=== PATIENT | female | born 1955 | race Caucasian/White ===

== ENCOUNTER → 2016-10-16 | Outpatient (CLI) | payer BC ==
[~2016-10-16] MED LIST: ACHD5005 PO; ALBU0.8322 IH; ALPR.25T PO; AMLO5TAB2 PO; BISO10TA PO; BISO5TAB8 PO; BUDE3CAP5 PO; CEFU500T63 PO; CIPR-226 PO; CIPR500T78 PO; COLE1TAB PO; CYAN100053 IJ; D50KC PO; DICY10CA12 PO; DOCU100C37 PO; DULO30CA PO; DULO60CA6 PO; ESTR1PAT10 TD; ESTR1PAT31 TD; FEXO180T84 PO; FLUT30CR10 TP; FOLI1TAB24 PO; HUMIRA; HYDR-3720 PO; HYDR-3874 PO; HYDR118S10 PO; HYDR1TAB PO; HYOS0.1217 PO; HYOS0.1217 SL; Hydrocodone Bit/Acetaminophen PO; IBUP-2055 PO; LEVO750T6 PO; LEVO75TA57 PO; LINA145C PO; LVT.05T PO; MELO-198 PO; METH2.5T PO; METR500T PO; MTF500T PO; ONDN4T PO; OXYC10TA7 PO; PANT20TA PO; PANT40TA PO; PNT40TEC PO; POLY119P PO; POLY17PO23 PO; PRD20T PO; RT-ALBUINH IH; SENN-1 PO; SENN1TAB76 PO; SNN187T PO; SUCR1TAB PO; TRAM50TA2 PO; TRAZ-28 PO; TRAZ150T42 PO; TRZ50T PO; bentyl
--- OUTSIDE RECORDS SUMMARY | 2016-10-16 11:56 | XMS REPORT | Continuity of Care Document ---
Author Author [facility] Organization [facility] Address Unknown Phone Unavailable Care Team Providers Care Professional Services Manager Name Role Phone Maureen Saucedo PCP [phone] Source Comments Some departments are not documenting in the electronic medical record. If you do not see the information that you expected, contact Release of Information in the Health Information Management department at [phone] for further assistance in locating additional records.[facility] Active Allergies and Adverse Reactions Allergen Noted Date Severity Reactions Comments Amitriptyline 01/19/2011 JOINT PAIN Axid 01/19/2011 HIVES, EDEMA Biaxin 01/19/2011 ANAPHYLAXIS Erythromycin 01/19/2011 SEE COMMENTS Severe stomach pains and vomiting Macrodantin 01/19/2011 HIVES Nitrofurantoin 01/19/2011 UNKNOWN Penicillins 01/19/2011 ANAPHYLAXIS, HIVES Premarin 01/19/2011 JOINT PAIN, MUSCLE PAIN Prilosec 01/19/2011 DIARRHEA Reglan 01/19/2011 JOINT PAIN Sulfa (Sulfonamide 01/19/2011 ANAPHYLAXIS, HIVES Antibiotics) Terfenadine 01/19/2011 HIVES, ANGIOEDEMA Current Medications Prescription Sig. Disp. Refills Start End Date Status Date cyanocobalamin (VITAMIN Inject 1,000 mcg to Active B-12, RUBRAMIN) 1,000 area(s) as directed every mcg/mL IJ injection 30 days. bisoprolol (ZEBETA) 5 mg Take 10 mg by mouth at Active PO tablet bedtime daily. trazodone (DESYREL) 50 mg Take 50 mg by mouth at Active PO tablet bedtime daily. estradiol(+) Apply 1 Patch to top of Active (VIVELLE-DOT) 0.1 mg/day skin as directed twice TD patch weekly. ergocalciferol (VITAMIN Take 50,000 Units by Active D) 50,000 unit capsule mouth every 7 days. Takes on DULoxetine DR (CYMBALTA) Take 60 mg by mouth Active 60 mg capsule daily. levothyroxine (SYNTHROID) Take 75 mcg by mouth Active 75 mcg tablet daily. Brand name only dicyclomine (BENTYL) 10 Take 10 mg by mouth four Active mg capsule times daily as needed. hyoscyamine (ANASPAZ; Place 125 mcg under Active NULEV; SYMAX FASTABS; tongue every 4 hours as HYOMAX-FT; ED-SPAZ; needed. OSCIMIN) 0.125 mg rapid dissolve tablet fexofenadine(+) (JOE) Take 180 mg by mouth as Active 180 mg tablet Needed. senna/docusate Take 1 Tab by mouth twice 30 Tab 3 10/22/19 Active (SENOKOT-S) 8.6/50 mg daily. 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 Completely asymptomatic. 10/20/2013: Kidney, "left renal mass", partial nephrectomy: Renal oncocytoma 01/2015: lt kidney wnl. Right with small mass 1cm. 01/2016: 1. Prior partial left nephrectomy without recurrent left renal mass. 2. Stable hyperechoic area in or adjacent to the lower pole right kidney which is most compatible with a benign angiomyolipoma or tiny nodular area of perinephric fat. 3. Persistent diffuse hepatic steatosis. L ast Assessment & Plan: Doing well Stable mass RTC 2 years with SUSAN Tracy MD Thoracic or lumbosacral neuritis or radiculitis, unspecified 08/01/2011 Displacement of intervertebral disc, site unspecified, without myelopathy Chronic low back pain 08/01/2011 Spondyloarthropathy (HCC) 08/01/2011 Radiculopathy 08/01/2011 Osteoarthritis 08/01/2011 Encounter for long-term (current) use of medications 08/01/2011 Ankylosing spondylitis (HCC) 01/28/2011 Sicca syndrome, Sjogren's (HCC) 01/28/2011 Encounter for long-term (current) use of other medications 01/28/2011 Social History Tobacco Use Types Packs/Day Years Used Date Never Smoker Smokeless Tobacco: Never Used Alcohol Use Drinks/Week oz/Week Comments No Last Filed Vital Signs Vital Sign Reading Time Taken Blood Pressure 132/63 01/28/2016 9:59 AM CDT Pulse 71 01/28/2016 9:59 AM CDT Temperature 36.7 C (98.1 F) 05/17/2015 1:18 PM CDT Respiratory Rate 16 01/08/2015 9:07 AM CDT Height 1.689 m (5' 6.5") 01/28/2016 9:59 AM CDT Weight 88.27 kg (194 lb 9.6 oz) 01/28/2016 9:59 AM CDT Body Mass Index 30.94 01/28/2016 9:59 AM CDT Oxygen Saturation 96% 05/17/2015 2:25 PM CDT Plan of Care Health Maintenance Due Date Last Done Comments Hepatitis C Screening 1954 Physical (Comprehensive) 1961 Exam Pertussis Vaccine 1965 Tetanus Vaccine 1971 Cervical Cancer Screening 1975 Breast Cancer Screening 1994 Shingles Vaccine 2014 Influenza Vaccine 04/06/2016 Colorectal Cancer 05/17/2025 05/17/2015 Screening Results from Last 3 Months Not on file
--- NOTE | 2016-10-16 12:46 | Diagnostic Imaging Report ---
PA and lateral views of the chest Indication: Dyspnea Findings: The lungs are clear. The heart size is normal. There is no effusion or pneumothorax The mediastinum and josafat appear unremarkable. Surgical clips in the upper abdomen seen. Impression: Unremarkable study. Dictated by: Dictated on workstation # [id number]
== END ==
LOC: RAD 11:52
PROVIDERS: ATTEND Family Medicine
DX: R06.00 Dyspnea, unspecified (principal)
CPT/HCPCS: 71020

== ENCOUNTER → 2016-12-12 | Outpatient (CLI) | payer BC ==
[~2016-12-12] MED LIST changes: +CATHETER FLUSH 10 ML SYR IV PRN; +REGADENOSON 0.4 MG/5 ML SYR (LEXISCAN) IV ONE
[2016-12-12 13:41] VITALS: BP 149/71
[2016-12-12 13:46] VITALS: BP 156/61
[2016-12-12 13:50] VITALS: BP 149/64
--- NOTE | 2016-12-12 21:04 | STRESS TEST ---
DATE OF SERVICE: 12/12/2016 DATE: 12/12/2016. ORDERING PHYSICIAN: Korina Salgado APRN. PRIMARY PHYSICIAN: Dr. Saucedo CLINICAL DIAGNOSIS: Chest discomfort, shortness of breath, hypertension, palpitations. Baseline images were carried out after injection of 10.02 mCi of technetium-99m Tetrofosmin. This was followed by 0.4 mg of regadenoson and 30.1 mCi of technetium-99m Tetrofosmin for stress imaging. The electrocardiogram showed sinus rhythm and the electrocardiogram did not change significantly with the regadenoson infusion. She reported shortness of breath and abdominal cramping following regadenoson infusion, which resolved in a few minutes. Review of images at rest and following stress indicates diminished count uptake in the anterolateral wall, both at rest and following regadenoson infusion. This appears to be a breast artifact. Gated images show normal global left ventricular systolic function with normal regional wall motion, including the inferolateral wall. Left ventricular ejection fraction is calculated to be 66%. Left ventricular end-diastolic volume is 66 mL. TID is absent (1.1). CONCLUSIONS: 1. No distinct evidence of any significant myocardial ischemia or infarction on this study. 2. Normal regional wall motion. 3. Normal global left ventricular systolic function with a calculated ejection fraction of 66%. 4. Normal left ventricular cavity size. Job ID: [id number] DocumentID: [id number] Dictated Date: 12/12/2016 15:36:55 [employer] Material Handler Date: 12/12/2016 16:05:29 Dictated By: KIRK PRAJAPATI MD, MA, FACP, FACC,
== END ==
LOC: CARD 12:27
PROVIDERS: ATTEND Nurse Practitioner Family
DX: I10 Essential (primary) hypertension (principal); R00.2 Palpitations; R06.09 Other forms of dyspnea; R07.89 Other chest pain
CPT/HCPCS: 78452; 93017

== ENCOUNTER → 2016-12-14 | Outpatient (CLI) | payer BC ==
[~2016-12-14] MED LIST changes: -CATHETER FLUSH 10 ML SYR IV PRN; -REGADENOSON 0.4 MG/5 ML SYR (LEXISCAN) IV ONE
== END ==
LOC: CARD 14:35
PROVIDERS: ATTEND Nurse Practitioner Family
DX: I10 Essential (primary) hypertension (principal); R07.89 Other chest pain; R06.09 Other forms of dyspnea; R00.2 Palpitations

== ENCOUNTER → 2018-01-13 | Outpatient (CLI) | payer BC ==
[~2018-01-13] MED LIST changes: +HYDR-3870 PO; -HYDR-3874 PO; +HYOS-6 PO; -HYOS0.1217 PO; -SENN-1 PO; +SENN-145 PO
[2018-01-13 14:17] LABS: BASOPHILS % (AUTO) 0 % (0-10); EOSINOPHILS % (AUTO) 0 % (0-10); HEMATOCRIT 41 % (35-52); HEMOGLOBIN 14.4 G/DL (11.5-16.0); LYMPHOCYTES % (AUTO) 20 % (12-44); MEAN CORPUSCULAR HEMOGLOBIN 32 PG (25-34); MEAN CORPUSCULAR HGB CONC 35 G/DL (32-36); MEAN CORPUSCULAR VOLUME 91 FL (80-99); MEAN PLATELET VOLUME 9.2 FL (7.4-10.4); MONOCYTES # (AUTO) 0.9 X 10^3 (0.0-1.0); MONOCYTES % (AUTO) 10 % (0-12); NEUTROPHILS # (AUTO) 6.8 X 10^3 (1.8-7.8); NEUTROPHILS % (AUTO) 69 % (42-75); PLATELET COUNT 357 10^3/uL (130-400); RED BLOOD COUNT 4.47 10^6/uL (4.35-5.85); RED CELL DISTRIBUTION WIDTH 13.6 % (10.0-14.5); WHITE BLOOD COUNT 9.8 10^3/uL (4.3-11.0)
[2018-01-13 14:41] LABS: ALANINE AMINOTRANSFERASE 23 U/L (0-55); ALBUMIN 4.4 GM/DL (3.2-4.5); ALKALINE PHOSPHATASE 74 U/L (40-136); BILIRUBIN,TOTAL 0.3 MG/DL (0.1-1.0); BUN/CREATININE RATIO 15; CALCIUM 9.5 MG/DL (8.5-10.1); CARBON DIOXIDE 21 MMOL/L (21-32); CHLORIDE 103 MMOL/L (98-107); CREATININE SERUM 0.84 MG/DL (0.60-1.30); GFR ESTIMATED > 60; GLUCOSE 110 MG/DL (70-105); POTASSIUM 4.8 MMOL/L (3.6-5.0); SODIUM 136 MMOL/L (135-145); TOTAL PROTEIN 8.4 GM/DL (6.4-8.2)
== END ==
LOC: LAB 14:01
PROVIDERS: ATTEND Nurse Practitioner Family
DX: N10 Acute pyelonephritis (principal); R11.0 Nausea
CPT/HCPCS: 36415; 80053; 85025; 86141

== ENCOUNTER 2018-01-29 14:15 | Inpatient (IN) | payer BC ==
[~2018-01-29] VITALS: Ht 167.6 cm; Wt 81.6 kg
[~2018-01-29 14:15] MED LIST changes: +TRAZ-189 PO; -TRAZ-28 PO
[2018-01-29] MEDS ORDERED: ONDANSETRON 4 MG/2 ML (SDV) Z0FRAN IVP PRN (14:30)
[2018-01-29] MEDS ORDERED: fentaNYL INJECTION 100 MCG/2 ML AMP IVP PRN (14:30)
[2018-01-29] MEDS ORDERED: CATHETER FLUSH 10 ML SYR IV PRN (15:15)
[2018-01-29] MEDS ORDERED: AZIT250T12 PO (15:18)
[2018-01-29] MEDS ORDERED: PANT40TA3 PO (15:18)
[2018-01-29] MEDS ORDERED: DULO60CA58 PO (15:18)
[2018-01-29] MEDS ORDERED: GABA-488 PO (15:18)
[2018-01-29] MEDS ORDERED: MESA250C PO (15:18)
[2018-01-29] MEDS ORDERED: SITA100T12 PO (15:18)
[2018-01-29] MEDS ORDERED: AMLO5TAB2 PO (15:31)
[2018-01-29] MEDS ORDERED: LEVO75TA PO (15:31)
[2018-01-29] MEDS ORDERED: CNC1KV IM (15:31)
[2018-01-29] MEDS ORDERED: HYOS-19 PO (15:31)
[2018-01-29] MEDS ORDERED: LIOT5TAB3 PO (15:31)
[2018-01-29] MEDS ORDERED: ALBU2.5V4 NEB (15:31)
[2018-01-29] MEDS ORDERED: ERGO50006 PO (15:31)
[2018-01-29] MEDS ORDERED: ALBU18HF2 INH (15:31)
[2018-01-29] MEDS ORDERED: CHOL20003 PO (15:31)
[2018-01-29] MEDS ORDERED: BISO10TA PO (15:31)
[2018-01-29] MEDS: CEFEPIME INJECTION 2,000 MG in NS (IVPB) 50 ML IV SCH (15:33)
[2018-01-29] MEDS: ENOXAPARIN 40 MG/0.4 ML (LOVENOX) SYR SC SCH (15:38)
[2018-01-29] MEDS: inSUlin ASPART (NovoLOG) 1 UNIT/0.01 ML (CHARGE PER UNIT) SC SCH ×2 (15:46→21:37)
[2018-01-29 15:48] VITALS: BP 135/62
[2018-01-29] MEDS: AZITHROMYCIN INJECTION 500 MG in NS (IVPB) 250 ML IV SCH (16:11)
[2018-01-29 16:31] LABS: BASOPHILS % (AUTO) 0 % (0-10); EOSINOPHILS % (AUTO) 0 % (0-10); HEMATOCRIT 37 % (35-52); HEMOGLOBIN 12.9 G/DL (11.5-16.0); LYMPHOCYTES # (AUTO) 2.2 X 10^3 (1.0-4.0); LYMPHOCYTES % (AUTO) 23 % (12-44); MEAN CORPUSCULAR HEMOGLOBIN 32 PG (25-34); MEAN CORPUSCULAR HGB CONC 35 G/DL (32-36); MEAN CORPUSCULAR VOLUME 91 FL (80-99); MONOCYTES # (AUTO) 0.8 X 10^3 (0.0-1.0); MONOCYTES % (AUTO) 8 % (0-12); NEUTROPHILS # (AUTO) 6.4 X 10^3 (1.8-7.8); NEUTROPHILS % (AUTO) 68 % (42-75); PLATELET COUNT 435 10^3/uL (130-400); RED BLOOD COUNT 4.05 10^6/uL (4.35-5.85); RED CELL DISTRIBUTION WIDTH 13.3 % (10.0-14.5); WHITE BLOOD COUNT 9.5 10^3/uL (4.3-11.0)
[2018-01-29 16:46] LABS: BUN/CREATININE RATIO 14; CALCIUM 9.4 MG/DL (8.5-10.1); CARBON DIOXIDE 22 MMOL/L (21-32); CHLORIDE 102 MMOL/L (98-107); CREATININE SERUM 0.84 MG/DL (0.60-1.30); GFR ESTIMATED > 60; GLUCOSE 134 MG/DL (70-105); POTASSIUM 4.4 MMOL/L (3.6-5.0); SODIUM 135 MMOL/L (135-145)
[2018-01-29] MEDS ORDERED: KETOROLAC 30 MG/ML VIAL IVP PRN (17:15)
[2018-01-29] MEDS ORDERED: PANTOPRAZOLE 40 MG/10 ML (PROTONIX) VIAL IV NR (17:15)
[2018-01-29] MEDS ORDERED: KETOROLAC 30 MG/ML VIAL IVP NR (17:15)
[2018-01-29 17:59] VITALS: BP 135/62
[2018-01-29] MEDS: RT-ALBUTEROL/IPRATROPIUM 3 ML (DUONEB) VIAL INH SCH ×2 (18:13→21:42)
[2018-01-29] MEDS ORDERED: HYOSCYAMINE 0.125 MG (LEVSIN) TAB PO PRN (18:15)
[2018-01-29] MEDS ORDERED: SENNA W/DOCUSATE (SENOKOT S) TABLET PO PRN (18:15)
[2018-01-29] MEDS: oxyCODONE/APAP 10/325MG (PERCOCET 10) TABLET PO PRN (18:59)
--- NOTE | 2018-01-29 19:51 | History & Physicial ---
History of Present Illness History of Present Illness Reason for visit/HPI This is a 62 year old female who had presented to my office the day prior to admission with complaint of severe right upper quadrant and right flank pain. She had been having intermittent pain off and on for the past few weeks. She also complained of coughing spasms which exacerbated her pain and was having chills. She was sent for a CT scan of her abdomen and pelvis and was found to have a right sided pneumonia. She was given Rocephin IM and started on Zithromax but she presented back to my office today with no improvement in her symptoms so it was decided to admit her for IV antibiotics. Date of Admission Jan 29, 2018 at 2:30 pm Date Seen by Provider: Jan 29, 2018 Time Seen by Provider: 19:44 I consulted on this patient on 01/29/18 19:44 Attending Physician Maureen Saucedo DO Admitting Physician Maureen Saucedo DO Consult Allergies and Home Medications Allergies Coded Allergies: Penicillins (Verified Allergy, Unknown, 11/08/13) clarithromycin (Verified Allergy, Unknown, 11/08/13) gluten (Verified Allergy, Unknown, 11/10/13) metoclopramide (Unverified Allergy, Unknown, 11/03/15) piroxicam (Verified Allergy, Unknown, Pt has received Ketorolac w/o issue , 01/29/18) sulfacetamide sodium (Verified Allergy, Unknown, 11/08/13) Home Medications Albuterol Sulfate 18 Gm Hfa.aer.ad, 2 PUFF INH Q4H PRN for SHORTNESS OF BREATH, (Reported) Albuterol Sulfate 2.5 Mg/3 Ml Vial.neb, 2.5 MG NEB Q4H PRN for SHORTNESS OF BREATH, (Reported) Amlodipine Besylate 5 Mg Tablet, 5 MG PO BID, (Reported) Azithromycin 250 Mg Tablet, PO UD, (Reported) 5 DAY SUPPLY FILLED 01-28-18 Bisoprolol Fumarate 10 Mg Tablet, 10 MG PO BID, (Reported) Cholecalciferol (Vitamin D3) 2,000 Unit Capsule, 2,000 UNIT PO DAILY, (Reported) Cyanocobalamin 1,000 Mcg/Ml Inj, 1,000 MCG IM EVERY 2 WEEKS, (Reported) Docusate Sodium 100 Mg Capsule, 200 MG PO BID, (Reported) Duloxetine HCl 60 Mg Capsule.dr, 60 MG PO HS, (Reported) Ergocalciferol (Vitamin D2) 50,000 Unit Capsule, 50,000 UNITS PO Sa, (Reported) Estradiol 1 Each Patch.tdsw, 1 PATCH TD EVERY 3 DAYS, (Reported) Fexofenadine HCl 180 Mg Tablet, 180 MG PO DAILY PRN for ALLERGIES, (Reported) Gabapentin 300 Mg Capsule, 300 MG PO HS, (Reported) Hyoscyamine Sulfate 0.125 Mg Tab.subl, 0.125 MG PO Q6H PRN for SPASMS, (Reported ) Levothyroxine Sodium 75 Mcg Tablet, 75 MCG PO DAILY, (Reported) Liothyronine Sodium 5 Mcg Tablet, 5 MCG PO DAILY, (Reported) Mesalamine 250 Mg Capsule.er, 250 MG PO DAILY, (Reported) Pantoprazole Sodium 40 Mg Tablet.dr, 40 MG PO BID, (Reported) Sennosides/Docusate Sodium 1 Each Tablet, 2 TAB PO BID PRN for CONSTIPATION-5TH LINE, (Reported) Sitagliptin Phosphate 100 Mg Tablet, 100 MG PO DAILY, (Reported) Patient Home Medication List Home Medication List Reviewed: Yes Past Uqohbhm-Tegbac-Ycnkay Hx Patient Social History Alcohol Use: Denies Use Number of Drinks Today: 0 Recreational Drug Use: No Physical Abuse Screen: No Sexual Abuse: No Recent Foreign Travel: No Contact w/other who traveled: No Recent Hopitalizations: No Recent Infectious Disease Expo: No Immunizations Up To Date Tetanus Booster (TDap): Less than 5yrs Pediatric: Yes Date of Pneumonia Vaccine: Apr 11, 2012 Date of Influenza Vaccine: Jun 15, 2016 Seasonal Allergies Seasonal Allergies: No Surgeries Yes Appendectomy, Breast, Cardiac, Gallbladder, Hysterectomy, Oophorectomy, Orthopedic, Thyroidectomy, Tonsillectomy Respiratory Yes Currently Using CPAP: No Currently Using BIPAP: No Cardiovascular Yes (mitral valve prolapse, heart caths no stents) Coronary Artery Disease, Heart Attack, Valvular Heart Disease Neurological Yes Reproductive System Hx Reproductive Disorders: Yes (TOTAL HYSTERECTOMY) Sexually Transmitted Disease: No HIV/AIDS: No Female Reproductive Disorders: Menstrual Problems, Endometriosis, Ovarian Cyst 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 History: Hysterectomy Genitourinary Kidney Infection, Kidney Stones, UTI-Chronic Gastrointestinal Yes (CHRONIC ABDOMINAL PAIN ) Gastroesophageal Reflux, Crohns Disease, Diverticulosis, Polyps, Hiatal Hernia, Ulcer, Gall Bladder Disease, Irritable Bowel Musculoskeletal Yes (ANKLYLOSING SPONDYLITIS) Degenerate Disk Disease, Arthritis, Chronic Back Pain Endocrine History of Endocrine Disorders: Yes Endocrine Disorders: Hypothyroidsim, Lupus HEENT Loss of Vision: Denies Hearing Impairment: Denies Cancer No Psychosocial History of Psychiatric Problem: No Integumentary History of Skin or Integumenta: Yes (STAPH INFECTIONS) Blood Transfusions History of Blood Disorders: No Adverse Reaction to a Blood Tr: No Family Medical History Family Hx: Family history: Cardiovascular disease Family history: Diabetes mellitus 03 MOTHER 09 BROTHER Family history: Glaucoma 03 MOTHER Family history: Thyroid disorder 03 MOTHER Heart disease 03 FATHER (AORTIC VALVE REPLACED) Constitutional: chills, weakness EENTM: No see HPI, No no symptoms reported, No ear discharge, No hearing loss, No ear pain, No blurred vision, No double vision, No eye pain, No tearing, No vision loss, No dental problems, No hoarseness, No mouth pain, No mouth swelling , No epistaxis, No nose congestion, No nose pain, No throat pain, No throat swelling, No other Respiratory: cough Cardiovascular: No no symptoms reported, No see HPI, No chest pain, No edema, No Hx of Intervention, No palpitations, No syncope, No vascular heart diseas, No other Gastrointestinal: RUQ Genitourinary: pain (right flank) Musculoskeletal: back pain Skin: No no symptoms reported, No see HPI, No change in color, No change in hair/nails, No dryness, No hx of skin cancer, No lesions, No lumps, No pruritus , No rash, No other Psychiatric/Neurological: Weakness Physical Exam Vital Signs Vital Signs - First Documented 01/29/18 01/29/18 15:48 17:59 Temp 97.2 Pulse 70 Resp 20 B/P (MAP) 135/62 (86) Pulse Ox 94 O2 Delivery Room Air FiO2 21 Capillary Refill : General Appearance: Moderate Distress HEENT: Normal ENT Inspection Neck: Supple Respiratory: Crackles (right), Decreased Breath Sounds Cardiovascular: Regular Rate, Rhythm, Systolic Murmur, Gallop/S4 Gastrointestinal: Normal Bowel Sounds, Soft, Tenderness (RUQ) Rectal: Deferred Back: CVA Tenderness (R) Extremity: Non Tender, No Calf Tenderness, No Pedal Edema Neurologic/Psychiatric: Alert, Oriented x3 Skin: Warm/Dry Lymphatic: No Adenopathy Comments Laboratory Tests 01/29/18 15:40: Glucometer 152H 01/29/18 16:07: White Blood Count 9.5, Red Blood Count 4.05L, Hemoglobin 12.9, Hematocrit 37, Mean Corpuscular Volume 91, Mean Corpuscular Hemoglobin 32, Mean Corpuscular Hemoglobin Concent 35, Red Cell Distribution Width 13.3, Platelet Count 435H, Mean Platelet Volume 9.0, Neutrophils (%) (Auto) 68, Lymphocytes (%) (Auto) 23, Monocytes (%) (Auto) 8, Eosinophils (%) (Auto) 0, Basophils (%) (Auto) 0, Neutrophils # (Auto) 6.4, Lymphocytes # (Auto) 2.2, Monocytes # (Auto) 0.8, Eosinophils # (Auto) 0.0, Basophils # (Auto) 0.0, Sodium Level 135, Potassium Level 4.4, Chloride Level 102, Carbon Dioxide Level 22, Anion Gap 11, Blood Urea Nitrogen 12, Creatinine 0.84, Estimat Glomerular Filtration Rate > 60, BUN/ Creatinine Ratio 14, Glucose Level 134H, Calcium Level 9.4 Assessment/Plan Assessment and Plan 1. Acute Community Acquired Pneumonia with Failed outpatient treatment--admit for IV antibiotics--maxipime and zithromax 2. RUQ pain--chronic with recent exacerbation by above 3. Hypertension--resume home meds 4. Diabetes mellitus II--start accuchecks with SSI Admission Diagnosis Admission Status: Inpatient Order (span 2 midnights) Reason for Inpatient Admission: Will need IV antibiotics for at least 2 midnights due to failed outpatient treatment for pneumonia MAUREEN SAUCEDO DO Jan 29, 2018 7:51 pm
[2018-01-29] MEDS: DOCUSATE SODIUM 100 MG (COLACE) CAP PO SCH (20:22)
[2018-01-29 20:45] VITALS: BP 126/58
[2018-01-29] MEDS ORDERED: NON-FORMULARY MEDICATION 1 EA EA (Bisoprolol Fumarate 10 MG) PO SCH (21:00)
[2018-01-29] MEDS: amLODIPine 5 MG (NORVASC) TAB PO SCH (21:37)
[2018-01-29] MEDS: DULoxetine 30 MG (CYMBALTA) CAP PO SCH (21:37)
[2018-01-29] MEDS: GABAPENTIN 300 MG (NEURONTIN) CAP PO SCH (21:37)
[2018-01-29] MEDS: CATHETER FLUSH 10 ML SYR IV SCH (22:01)
[2018-01-30] VITALS (7 sets, daily range): BP systolic 106–132; BP diastolic 58–69
[2018-01-30] MEDS: RT-ALBUTEROL/IPRATROPIUM 3 ML (DUONEB) VIAL INH SCH ×6 (01:47→22:20)
[2018-01-30] MEDS: CYCLOBENZAPRINE 10 MG (FLEXERIL) TAB PO SCH ×4 (02:03→21:44)
[2018-01-30] MEDS: oxyCODONE/APAP 10/325MG (PERCOCET 10) TABLET PO PRN ×3 (02:03→15:29)
[2018-01-30] MEDS: LIDOCAINE (LIDODERM) 5% PATCH TOP SCH ×2 (02:04→08:11)
[2018-01-30] MEDS: CEFEPIME INJECTION 2,000 MG in NS (IVPB) 50 ML IV SCH ×2 (04:13→14:55)
[2018-01-30 05:45] LABS: HEMOGLOBIN 11.8 G/DL (11.5-16.0); MEAN PLATELET VOLUME 8.9 FL (7.4-10.4); RED BLOOD COUNT 3.75 10^6/uL (4.35-5.85); RED CELL DISTRIBUTION WIDTH 13.4 % (10.0-14.5); WHITE BLOOD COUNT 8.5 10^3/uL (4.3-11.0)
[2018-01-30 06:14] LABS: ALANINE AMINOTRANSFERASE 13 U/L (0-55); ALBUMIN 3.6 GM/DL (3.2-4.5); ALKALINE PHOSPHATASE 61 U/L (40-136); BILIRUBIN,TOTAL 0.3 MG/DL (0.1-1.0); BUN/CREATININE RATIO 13; CALCIUM 8.8 MG/DL (8.5-10.1); CARBON DIOXIDE 22 MMOL/L (21-32); CHLORIDE 102 MMOL/L (98-107); CREATININE SERUM 0.84 MG/DL (0.60-1.30); GFR ESTIMATED > 60; GLUCOSE 135 MG/DL (70-105); POTASSIUM 4.1 MMOL/L (3.6-5.0); SODIUM 136 MMOL/L (135-145); TOTAL PROTEIN 6.8 GM/DL (6.4-8.2)
[2018-01-30] MEDS: CATHETER FLUSH 10 ML SYR IV SCH ×3 (06:59→21:44)
[2018-01-30] MEDS: inSUlin ASPART (NovoLOG) 1 UNIT/0.01 ML (CHARGE PER UNIT) SC SCH ×4 (07:00→21:43)
[2018-01-30] MEDS: LEVOTHYROXINE 75 MCG (LEVOTHROID) TABLET PO SCH (07:00)
[2018-01-30] MEDS: PANTOPRAZOLE 40 MG (PROTONIX) TAB PO SCH ×2 (08:09→21:43)
[2018-01-30] MEDS: MESALAMINE 250 MG (PENTASA) CAP PO SCH (08:10)
[2018-01-30] MEDS: amLODIPine 5 MG (NORVASC) TAB PO SCH ×2 (08:10→21:43)
[2018-01-30] MEDS: DOCUSATE SODIUM 100 MG (COLACE) CAP PO SCH ×2 (08:13→21:44)
[2018-01-30] MEDS: LINAGLIPTIN (TRADJENTA) 5 MG TABLET PO SCH (08:15)
[2018-01-30] MEDS ORDERED: LORATADINE (CLARITIN) 10 MG TAB PO PRN (09:00)
[2018-01-30] MEDS ORDERED: PANTOPRAZOLE 40 MG/10 ML (PROTONIX) VIAL IV SCH (09:00)
[2018-01-30] MEDS ORDERED: PATIENT MAY USE OWN MEDS, ALL MC SCH (11:15)
[2018-01-30] MEDS: Liothyronine Sodium 5 MCG PO SCH (11:21)
[2018-01-30] MEDS: AZITHROMYCIN INJECTION 500 MG in NS (IVPB) 250 ML IV SCH (13:51)
[2018-01-30] MEDS: ENOXAPARIN 40 MG/0.4 ML (LOVENOX) SYR SC SCH (13:53)
[2018-01-30] MEDS: DULoxetine 30 MG (CYMBALTA) CAP PO SCH (21:44)
[2018-01-30] MEDS: GABAPENTIN 300 MG (NEURONTIN) CAP PO SCH (21:51)
[2018-01-31] VITALS: BP 104/63
[2018-01-31] MEDS: RT-ALBUTEROL/IPRATROPIUM 3 ML (DUONEB) VIAL INH SCH ×6 (02:20→23:10)
[2018-01-31] MEDS: CEFEPIME INJECTION 2,000 MG in NS (IVPB) 50 ML IV SCH ×2 (02:52→16:39)
[2018-01-31 04:00] VITALS: BP 123/67
[2018-01-31] MEDS: inSUlin ASPART (NovoLOG) 1 UNIT/0.01 ML (CHARGE PER UNIT) SC SCH ×4 (05:26→21:26)
[2018-01-31] MEDS: Liothyronine Sodium 5 MCG PO SCH (05:54)
[2018-01-31] MEDS: LEVOTHYROXINE 75 MCG (LEVOTHROID) TABLET PO SCH (05:54)
[2018-01-31] MEDS: CATHETER FLUSH 10 ML SYR IV SCH ×3 (05:55→21:24)
[2018-01-31] MEDS: CYCLOBENZAPRINE 10 MG (FLEXERIL) TAB PO SCH ×3 (08:10→21:23)
[2018-01-31] MEDS: PANTOPRAZOLE 40 MG (PROTONIX) TAB PO SCH ×2 (08:10→21:23)
[2018-01-31] MEDS: DOCUSATE SODIUM 100 MG (COLACE) CAP PO SCH ×2 (08:10→21:23)
[2018-01-31] MEDS: amLODIPine 5 MG (NORVASC) TAB PO SCH ×2 (08:11→21:23)
[2018-01-31] MEDS: MESALAMINE 250 MG (PENTASA) CAP PO SCH (08:11)
[2018-01-31] MEDS: LINAGLIPTIN (TRADJENTA) 5 MG TABLET PO SCH (08:11)
[2018-01-31] MEDS: LIDOCAINE (LIDODERM) 5% PATCH TOP SCH (08:13)
[2018-01-31 08:38] VITALS: BP 129/60
[2018-01-31] MEDS ORDERED: ESTRADIOL PATCH REMOVAL TP SCH (08:59)
[2018-01-31] MEDS ORDERED: ESTRADIOL 0.1 MG PATCH (CLIMARA) TD SCH (09:00)
[2018-01-31 12:00] VITALS: BP 140/63
[2018-01-31] MEDS ORDERED: BISACODYL 10 MG SUPP (DULCOLAX) PR PRN (12:45)
[2018-01-31] MEDS ORDERED: BISACODYL 10 MG SUPP (DULCOLAX) PR NR (12:45)
--- NOTE | 2018-01-31 12:46 | Progress Note (SOAP) ---
Subjective Date Seen by Provider: Jan 30, 2018 Time Seen by Provider: 12:45 Subjective/Events-last exam Fwup pneumonia, RUQ and right flank pain, HTN, DMII. Feels like can take deeper breaths. Objective Exam Vital Signs Date Time Temp Pulse Resp B/P (MAP) Pulse Ox O2 Delivery O2 Flow Rate FiO2 01/31/18 10:31 90 Room Air 01/31/18 08:38 98.4 107 20 129/60 (83) 92 Room Air 01/31/18 08:15 Room Air 01/31/18 06:57 95 Room Air 01/31/18 04:00 97.7 91 16 123/67 (85) 94 Room Air 01/31/18 02:20 90 Room Air 01/31/18 00:00 98.0 79 16 104/63 (77) 96 Room Air 01/30/18 22:21 90 Room Air 01/30/18 21:40 82 126/68 (87) 01/30/18 20:00 Room Air 01/30/18 19:30 98.6 86 18 124/69 (87) 94 Room Air 01/30/18 18:56 88 Room Air 01/30/18 16:05 99.0 76 18 124/58 (80) 96 Room Air 01/30/18 14:54 92 Room Air I & O 01/31/18 07:00 Intake Total 9000 ml Output Total 4000 ml Balance 5000 ml Capillary Refill : General Appearance: No Apparent Distress Neck: Supple Respiratory: Lungs Clear (with better aeration) Cardiovascular: Regular Rate, Rhythm Gastrointestinal: normal bowel sounds, soft, tenderness (RUQ and right flank) Extremity: Non Tender, No Calf Tenderness, No Pedal Edema Neurologic/Psychiatric: Alert, Oriented x3 Results Lab Laboratory Tests 01/30/18 15:40: Glucometer 196H 01/30/18 21:16: Glucometer 229H 01/31/18 05:25: Glucometer 132H 01/31/18 10:46: Glucometer 162H Microbiology 01/29/18 Blood Culture - Preliminary, Resulted No growth Assessment/Plan Assessment/Plan Assess & Plan/Chief Complaint 1. Right Sided Community Acquired Pneumonia with failed outpatient treatment-- continue IV maxipime and zithromax 2. Hypertension--back on home meds 3. DMII--on home meds and SSI 4. Increase activity--up to chair and ambulate Clinical Quality Measures Admission Status Admission Dx 1. Acute Community Acquired Pneumonia with Failed outpatient treatment--admit for IV antibiotics--maxipime and zithromax 2. RUQ pain--chronic with recent exacerbation by above 3. Hypertension--resume home meds 4. Diabetes mellitus II--start accuchecks with SSI DVT/VTE Risk/Contraindication: Risk Factor Score Per Nursin RFS Level Per Nursing on Admit: 4+=Very High REID ANN DO Jan 31, 2018 12:46
--- NOTE | 2018-01-31 12:50 | Progress Note (SOAP) ---
Subjective Date Seen by Provider: Jan 31, 2018 Time Seen by Provider: 12:47 Subjective/Events-last exam Fwup CAP, HTN, DMII, RUQ/flank pain. Had urinary retention this morning and had to be straight cathed. Has not had BM since hospital stay either. Objective Exam Vital Signs Date Time Temp Pulse Resp B/P (MAP) Pulse Ox O2 Delivery O2 Flow Rate FiO2 01/31/18 10:31 90 Room Air 01/31/18 08:38 98.4 107 20 129/60 (83) 92 Room Air 01/31/18 08:15 Room Air 01/31/18 06:57 95 Room Air 01/31/18 04:00 97.7 91 16 123/67 (85) 94 Room Air 01/31/18 02:20 90 Room Air 01/31/18 00:00 98.0 79 16 104/63 (77) 96 Room Air 01/30/18 22:21 90 Room Air 01/30/18 21:40 82 126/68 (87) 01/30/18 20:00 Room Air 01/30/18 19:30 98.6 86 18 124/69 (87) 94 Room Air 01/30/18 18:56 88 Room Air 01/30/18 16:05 99.0 76 18 124/58 (80) 96 Room Air 01/30/18 14:54 92 Room Air I & O 01/31/18 07:00 Intake Total 9000 ml Output Total 4000 ml Balance 5000 ml Capillary Refill : General Appearance: No Apparent Distress Neck: Supple Respiratory: Decreased Breath Sounds (right base with crackles) Cardiovascular: Regular Rate, Rhythm Gastrointestinal: normal bowel sounds, non tender, soft Extremity: Non Tender, No Calf Tenderness, No Pedal Edema Neurologic/Psychiatric: Alert, Oriented x3 Results Lab Laboratory Tests 01/30/18 15:40: Glucometer 196H 01/30/18 21:16: Glucometer 229H 01/31/18 05:25: Glucometer 132H 01/31/18 10:46: Glucometer 162H Microbiology 01/29/18 Blood Culture - Preliminary, Resulted No growth Assessment/Plan Assessment/Plan Assess & Plan/Chief Complaint 1. Right Sided Community Acquired Pneumonia with failed outpatient treatment-- continue IV maxipime and zithromax, CXR in AM 2. Hypertension--back on home meds 3. DMII--on home meds and SSI 4. Constipation--suppository now as may be worsening urinary retention 5. Urinary Retention--Increase activity and ambulate and straight cath prn, will add bethanecol if continues Clinical Quality Measures Admission Status Admission Dx 1. Acute Community Acquired Pneumonia with Failed outpatient treatment--admit for IV antibiotics--maxipime and zithromax 2. RUQ pain--chronic with recent exacerbation by above 3. Hypertension--resume home meds 4. Diabetes mellitus II--start accuchecks with SSI DVT/VTE Risk/Contraindication: Risk Factor Score Per Nursin RFS Level Per Nursing on Admit: 4+=Very High REID ANN DO Jan 31, 2018 12:50
[2018-01-31] MEDS: AZITHROMYCIN INJECTION 500 MG in NS (IVPB) 250 ML IV SCH (14:09)
[2018-01-31] MEDS: ENOXAPARIN 40 MG/0.4 ML (LOVENOX) SYR SC SCH (14:09)
[2018-01-31 16:00] VITALS: BP 121/57
[2018-01-31] MEDS ORDERED: RT-ALBUTEROL/IPRATROPIUM 3 ML (DUONEB) VIAL INH PRN (20:00)
[2018-01-31] MEDS: DULoxetine 30 MG (CYMBALTA) CAP PO SCH (21:22)
[2018-01-31] MEDS: GABAPENTIN 300 MG (NEURONTIN) CAP PO SCH (21:23)
[2018-02-01 00:10] VITALS: BP 110/60
[2018-02-01] MEDS: RT-ALBUTEROL/IPRATROPIUM 3 ML (DUONEB) VIAL INH SCH ×2 (02:25→06:06)
[2018-02-01] MEDS: CEFEPIME INJECTION 2,000 MG in NS (IVPB) 50 ML IV SCH (03:51)
[2018-02-01] MEDS: LEVOTHYROXINE 75 MCG (LEVOTHROID) TABLET PO SCH (05:56)
[2018-02-01] MEDS: inSUlin ASPART (NovoLOG) 1 UNIT/0.01 ML (CHARGE PER UNIT) SC SCH ×2 (05:57→11:37)
[2018-02-01] MEDS: Liothyronine Sodium 5 MCG PO SCH (05:57)
[2018-02-01] MEDS: CATHETER FLUSH 10 ML SYR IV SCH (05:58)
[2018-02-01 08:00] VITALS: BP 143/83
--- NOTE | 2018-02-01 08:27 | Diagnostic Imaging Report ---
INDICATION: Pneumonia. Exam compared 10/16/2016. FINDINGS: Airspace disease has developed in the right lower lobe and at least partially involving the right middle lobe consistent with pneumonia, however owing to the parenchyma density at the site of infiltrate followup to confirm resolution appropriate. The left lung is clear. There is no evidence for pleural fluid. IMPRESSION: Infiltrate right lower lobe and partially involving the middle lobe most compatible with pneumonia but warranting radiographic followup to document clearance. Dictated by: Dictated on workstation # [id number]
[2018-02-01] MEDS: amLODIPine 5 MG (NORVASC) TAB PO SCH (08:39)
[2018-02-01] MEDS: MESALAMINE 250 MG (PENTASA) CAP PO SCH (08:39)
[2018-02-01] MEDS: PANTOPRAZOLE 40 MG (PROTONIX) TAB PO SCH (08:39)
[2018-02-01] MEDS: CYCLOBENZAPRINE 10 MG (FLEXERIL) TAB PO SCH (08:39)
[2018-02-01] MEDS: DOCUSATE SODIUM 100 MG (COLACE) CAP PO SCH (08:39)
[2018-02-01] MEDS: LIDOCAINE (LIDODERM) 5% PATCH TOP SCH (08:44)
[2018-02-01] MEDS: LINAGLIPTIN (TRADJENTA) 5 MG TABLET PO SCH (08:44)
[2018-02-01] MEDS ORDERED: AZITHROMYCIN 250 MG TAB (ZITHROMAX) PO SCH (09:00)
[2018-02-01] MEDS ORDERED: RT-ALBUTEROL/IPRATROPIUM 3 ML (DUONEB) VIAL INH SCH (11:00)
[2018-02-01] MEDS ORDERED: CEFD300C3 PO (11:09)
--- NOTE | 2018-02-01 11:11 | Discharge Inst-Simple/Standard ---
Discharge Inst-Standard Discharge Medications New, Converted or Re-Newed RX: Transmitted to Pharmacy Patient Instructions/Follow Up Plan of Care/Instructions/FU: Fwup with me Sunday or Sunday Activity as Tolerated: Yes Discharge Diet: ADA Diet, Cardiac Diet REID ANN DO Feb 01, 2018 11:11 am
--- NOTE | 2018-02-05 17:08 | Physician Query-Final Dx ---
JOSR MOORE 02/05/18 1708: Final Diagnosis Give Final Diagnosis Please give Final Diagnosis REID ANN DO 02/12/18 1750: Final Diagnosis Give Final Diagnosis See Discharge Summary JOSR MOORE Feb 05, 2018 17:08 REID ANN DO Feb 12, 2018 17:50
--- NOTE | 2018-02-12 17:59 | Discharge Summary ---
Diagnosis/Chief Complaint Date of Admission Jan 29, 2018 at 14:30 Date of Discharge Feb 01, 2018 at 11:55 Discharge Date: Feb 01, 2018 Discharge Diagnosis 1. Right Sided Community Acquired Pneumonia with failed outpatient treatment-- improved 2. Hypertension--stable 3. DMII--elevated BS during hospital stay due to infection 4. Constipation--improved 5. Urinary Retention--resolved 6. RUQ pain--improved 7. Right flank pain--improved Reason Hospital Visit This is a 62 year old female who had presented to my office the day prior to admission with complaint of severe right upper quadrant and right flank pain. She had been having intermittent pain off and on for the past few weeks. She also complained of coughing spasms which exacerbated her pain and was having chills. She was sent for a CT scan of her abdomen and pelvis and was found to have a right sided pneumonia. She was given Rocephin IM and started on Zithromax but she presented back to my office today with no improvement in her symptoms so it was decided to admit her for IV antibiotics. Discharge Summary Hospital Course Hospital Course This is a 62 year old female who had presented to my office the day prior to admission with complaint of severe right upper quadrant and right flank pain. She had been having intermittent pain off and on for the past few weeks. She also complained of coughing spasms which exacerbated her pain and was having chills. She was sent for a CT scan of her abdomen and pelvis and was found to have a right sided pneumonia. She was given Rocephin IM and started on Zithromax but she presented back to my office on the day of admisison with no improvement in her symptoms so it was decided to admit her for IV antibiotics. She was given zithromax and cefepime IV for the pneumonia. She was started on SVNS with duoneb as well as incentive spirometry. She was initially given IV fentanyl and IV toradol for pain. This was then changed to oral oxycodone. She continued to complain of right upper quadrant and right flank pain until she was at least 48hrs on IV antibiotics then her pain started to improve. She was afebrile and her WBC count was normal. By the 3rd hospital day, her lung aeration was improved and her right sided pain was much improved. However, she was having constipation with urinary retention. She did have to be straight cathed and did receive a dulcolax suppository and once her bowels moved, her urinary retention resolved. A repeat CXR showed improvement in her right sided infiltrate and it was decided she could be discharged home on oral antibiotics. Procedures None. Discharge Physical Examination Allergies: Coded Allergies: Penicillins (Verified Allergy, Unknown, 11/08/13) clarithromycin (Verified Allergy, Unknown, 01/30/18) Patient as tolerated azithromycin gluten (Verified Allergy, Unknown, 11/10/13) metoclopramide (Unverified Allergy, Unknown, 11/03/15) piroxicam (Verified Allergy, Unknown, Pt has received Ketorolac w/o issue , 01/29/18) sulfacetamide sodium (Verified Allergy, Unknown, 11/08/13) General Appearance: Alert, Oriented X3, No Acute Distress Respiratory: Clear to Auscultation Cardiovascular: Regular Rate Abdominal: Normal Bowel Sounds, Soft, No Tenderness Neuro: Normal Gait, Normal Speech Psych/Mental Status: Mental Status NL, Mood NL Discharge Home Medications Reviewed and agree with Discharge Medication list on patient's Discharge Instruction sheet Instructions to Patient/Family Please see electronic discharge instructions given to patient. Clinical Quality Measures DVT/VTE Risk/Contraindication: Risk Factor Score Per Nursin RFS Level Per Nursing on Admit: 4+=Very High REID ANN DO Feb 12, 2018 17:59
== END 2018-02-01 11:55 | disposition home or self-care (01) | DRG 194 ==
LOC: 4TH 14:30
PROVIDERS: ADMIT Family Medicine; ATTEND Family Medicine
DX: J18.9 Pneumonia, unspecified organism (principal); K50.90 Crohn's disease, unspecified, without complications; I25.10 Atherosclerotic heart disease of native coronary artery without angina pectoris; I10 Essential (primary) hypertension; I34.1 Nonrheumatic mitral (valve) prolapse; E11.9 Type 2 diabetes mellitus without complications; R33.9 Retention of urine, unspecified; K59.00 Constipation, unspecified; E89.0 Postprocedural hypothyroidism; K21.9 Gastro-esophageal reflux disease without esophagitis; K57.90 Diverticulosis of intestine, part unspecified, without perforation or abscess without bleeding; K44.9 Diaphragmatic hernia without obstruction or gangrene; L93.0 Discoid lupus erythematosus; M45.9 Ankylosing spondylitis of unspecified sites in spine; M19.91 Primary osteoarthritis, unspecified site; I25.2 Old myocardial infarction; Z87.11 Personal history of peptic ulcer disease; Z86.010 Personal history of colon polyps; Z90.710 Acquired absence of both cervix and uterus; Z87.440 Personal history of urinary (tract) infections; Z87.442 Personal history of urinary calculi
CPT/HCPCS: 36415; 71046; 80048; 80053; 82962; 85025; 85027; 87040; 94640; 94664; 94760

== ENCOUNTER → 2018-02-25 | Outpatient (CLI) | payer BC ==
[~2018-02-25] MED LIST changes: +ALBU18HF2 INH; +ALBU2.5V4 NEB; +AZIT250T12 PO; +CEFD300C3 PO; +CHOL20003 PO; +CNC1KV IM; +DULO60CA58 PO; +ERGO50006 PO; +GABA-488 PO; +HYOS-19 PO; +LEVO75TA PO; +LIOT5TAB3 PO; +MESA250C PO; +PANT40TA3 PO; +SITA100T12 PO
--- NOTE | 2018-02-25 16:32 | Diagnostic Imaging Report ---
INDICATION: Pneumonia. FINDINGS: Two views of the chest shows partial clearing of the abnormal density seen in the right lower lobe. There still remains some dense consolidation and/or mass effect posteriorly. The left lung remains clear. There is no effusion or pneumothorax. IMPRESSION: There still remains an abnormal parenchymal density in the right lower lobe with only slight improvement since 02/01/2018. Recommend continued followup with chest x-ray or this could be evaluated further with CT. Dictated by: Dictated on workstation # [id number]
== END ==
LOC: RAD 16:10
PROVIDERS: ATTEND Family Medicine
DX: J18.9 Pneumonia, unspecified organism (principal)
CPT/HCPCS: 71046

== ENCOUNTER → 2018-02-27 | Outpatient (CLI) | payer BC ==
--- NOTE | 2018-02-27 12:46 | Diagnostic Imaging Report ---
INDICATION: Shortness of breath and right-sided chest pain. TECHNIQUE: CT chest obtained without IV contrast. COMPARISON: Comparison made to 11/26/2015. FINDINGS: There are no enlarged mediastinal or hilar nodes. There are no enlarged axillary nodes or chest wall masses. There is no pleural or pericardial fluid. Bony windows demonstrate no destructive bony lesion. There is a well-defined sclerotic bony lesion of T12 on the right side which may be a bone island but is nonspecific. Visualized portions of the upper abdomen demonstrate fatty infiltration of the liver and postop changes along the gastrohepatic ligament but no mass lesion or abnormal fluid collection. Lung parenchymal windows demonstrate a large parenchymal density with air bronchograms in the right lower lobe measuring about 6.9 x 6.1 cm. There are adjacent smaller areas of abnormal parenchymal density in the right middle lobe and the anterior portion of the right lower lobe. There is also a small area of abnormal density and air bronchogram in the right upper lobe anteriorly along the minor fissure. There is a small area of scarring versus infiltrate in the right apex. The left lung shows a minimal area of abnormal density in the superior segment of the left lower lobe. IMPRESSION: Abnormal parenchymal densities with air bronchograms are seen, predominantly in the right lung involving the lower lobe but there are smaller areas of abnormality in the middle lobe and upper lobe as well. There is minimal area of abnormal density in the left lung in the superior segment of the lower lobe. While these findings may represent an inflammatory process, the fact that the abnormality has persisted does raise the possibility of a neoplastic process such as bronchoalveolar carcinoma. Bronchoscopic evaluation with biopsy or CT-guided biopsy could be considered, as clinically warranted. Note that this is a new finding compared with 11/26/2015. There is diffuse fatty infiltration of the liver. There is no adenopathy or pleural fluid or pericardial fluid. Dictated by: Dictated on workstation # [id number]
== END ==
LOC: RAD 11:04
PROVIDERS: ATTEND Family Medicine
DX: J18.9 Pneumonia, unspecified organism (principal)
CPT/HCPCS: 71250

== ENCOUNTER → 2018-06-13 | Outpatient (CLI) | payer BC ==
[~2018-06-13] VITALS: Ht 167.6 cm; Wt 83.0 kg
[~2018-06-13] MED LIST changes: -AMLO5TAB2 PO; +AMLO5TAB7 PO; +LIDOCAINE 1% INJ 20 ML 20 ML VIAL INJ ONE
[2018-06-13 12:01] LABS: CSF GLUCOSE 96 MG/DL (50-80); CSF TOTAL PROTEIN 28 MG/DL (15-40)
[2018-06-13 12:30] LABS: APPEARANCE,CSF CLEAR; COLOR,CSF COLORLESS; CSF TUBE NUMBER 3; RED BLOOD CELL,CSF 12.2 CELLS (0-0); WHITE BLOOD CELL,CSF 1.1 CELLS (0-5)
--- NOTE | 2018-06-13 14:50 | Diagnostic Imaging Report ---
Indication: Possible meningitis. Patient was brought to the procedure room and placed in the prone position. The skin of the low back was prepped and draped in the usual sterile fashion. Small amount of 1% lidocaine was utilized for local anesthesia. A 22-gauge spinal needle was advanced into the lumbar thecal sac at the L3-4 level. Approximately 6 cc of clear CSF was removed. Needle was withdrawn, hemostasis was obtained. Patient tolerated the procedure well. 25 seconds of fluoroscopy was utilized. Impression: Successful fluoroscopically-assisted lumbar puncture, as described. Dictated by: Dictated on workstation # [id number]
== END ==
LOC: RAD 09:55
PROVIDERS: ATTEND Nurse Practitioner Family
DX: R88.8 Abnormal findings in other body fluids and substances (principal)
CPT/HCPCS: 36415; 62270; 77002; 82945; 84157; 87070; 87101; 87116; 87205; 87206; 87210; 89051

== ENCOUNTER 2018-09-14 09:51 | Emergency (ER) | payer BC ==
[~2018-09-14] VITALS: Ht 167.6 cm; Wt 82.6 kg
[~2018-09-14 09:51] MED LIST changes: -AMLO5TAB7 PO; +AMLO5TAB9 PO; -LIDOCAINE 1% INJ 20 ML 20 ML VIAL INJ ONE
--- OUTSIDE RECORDS SUMMARY | 2018-09-14 09:57 | XMS REPORT | Clinical Summary ---
Author Author [facility] Address Unknown Phone Unavailable Care Team Providers Care [employer] Maintainer Name Role Phone Angelo Khan MD Unavailable Denise Naylor APRN Unavailable Unavailable Demarcus Johnson MD Unavailable Maureen Saucedo MD PCP Alisa Dugan RN Unavailable Unavailable Sofia Gonzalez RN Unavailable Unavailable Sera Copeland DO Unavailable Olivia Marrero Unavailable Unavailable Mary Patel RN Unavailable Unavailable Rissa Noel RN Unavailable Unavailable Source Comments Some departments are not documenting in the electronic medical record. If you do not see the information that you expected, contact Release of Information in the Health Information Management department at [phone] for further assistance in locating additional records.[facility] Allergies Comments Active Allergy Reactions Severity Noted Date Amitriptyline JOINT PAIN 01/19/2011 Nizatidine HIVES, EDEMA 01/19/2011 Clarithromycin ANAPHYLAXIS 01/19/2011 Severe stomach pains and vomiting Erythromycin SEE COMMENTS 01/19/2011 Nitrofurantoin HIVES 01/19/2011 Macrocrystalline Nitrofurantoin UNKNOWN 01/19/2011 Penicillins ANAPHYLAXIS, 01/19/2011 HIVES Conjugated Estrogens JOINT PAIN, 01/19/2011 MUSCLE PAIN Omeprazole Magnesium DIARRHEA 01/19/2011 Metoclopramide JOINT PAIN 01/19/2011 Sulfa (Sulfonamide ANAPHYLAXIS, 01/19/2011 Antibiotics) HIVES Terfenadine HIVES, 01/19/2011 ANGIOEDEMA Medications End Date Status Medication Sig Dispensed Refills Start Date Active cyanocobalamin (VITAMIN Inject 1,000 0 B-12, RUBRAMIN) 1,000 mcg to mcg/mL IJ injection area(s) as directed every 30 days. Active bisoprolol (ZEBETA) 5 mg Take 10 mg by 0 PO tablet mouth twice daily (at 10AM and 10PM). Active estradiol(+) Apply 1 Patch 0 (VIVELLE-DOT) 0.1 mg/day to top of TD patch skin as directed twice weekly. Active ergocalciferol (VITAMIN Take 50,000 0 D) 50,000 unit capsule Units by mouth every 7 days. Takes on Active DULoxetine DR (CYMBALTA) Take 60 mg by 0 60 mg capsule mouth daily. Active levothyroxine (SYNTHROID) Take 75 mcg 0 75 mcg tablet by mouth daily. Brand name only Active gabapentin (NEURONTIN) Take 300 mg 0 300 mg capsule by mouth every 8 hours. Active liothyronine (CYTOMEL) 5 Take 5 mcg by 0 mcg tab mouth daily. Active amLODIPine (NORVASC) 5 mg Take 5 mg by 0 tablet mouth daily. Active warfarin sodium (JANTOVEN Take by 0 PO) mouth. Active mesalamine (PENTASA PO) Take by 0 mouth. Active Problems Problem Noted Date Renal mass 10/20/2013 Last Assessment & Plan: The patient presents today for follow-up of a renal mass that we have been following. Ultrasound today shows stability in the size of the mass from 2 years ago, currently 0.8 cm in diameter. 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 Given that the mass has not changed significantly in size over a two-year period, and is actually decreased slightly in size, we believe that this lung mass is most likely benign. PLAN: -RTC in 2 years for U/S and follow-up appointment. 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 Overview: Incidentally found on [...] myelopathy Chronic low back pain 08/01/2011 Spondyloarthropathy 08/01/2011 Radiculopathy 08/01/2011 Osteoarthritis 08/01/2011 Encounter for long-term (current) use of medications 08/01/2011 Ankylosing spondylitis 01/28/2011 Sicca syndrome, Sjogren's 01/28/2011 Encounter for long-term (current) use of other medications 01/28/2011 Family History Medical History Relation Name Comments Arthritis-osteo Daughter Heart Disease Father Arthritis-rheumatoid Maternal Grandmother Arthritis-rheumatoid Mother Kidney Cancer Paternal Grandmother Relation Name Status Comments Daughter Father Maternal Grandmother Mother Paternal Grandmother Social History Date Tobacco Use Types Packs/Day Years Used Never Smoker Smokeless Tobacco: Never Used Alcohol Use Drinks/Week oz/Week Comments No Sex Assigned at Date Recorded Not on file Industry Job Start Date Occupation Not on file Not on file Not on file Travel End Travel History Travel Start No recent travel history available. Last Filed Vital Signs Time Taken Vital Sign Reading 01/28/2016 9:59 AM CDT Blood Pressure 132/63 01/28/2016 9:59 AM CDT Pulse 71 05/17/2015 1:18 PM CDT Temperature 36.7 C (98.1 F) 01/08/2015 9:07 AM CDT Respiratory Rate 16 05/17/2015 2:25 PM CDT Oxygen Saturation 96% - Inhaled Oxygen - Concentration 01/28/2016 9:59 AM CDT Weight 88.3 kg (194 lb 9.6 oz) 01/28/2016 9:59 AM CDT Height 168.9 cm (5' 6.5") 01/28/2016 9:59 AM CDT Body Mass Index 30.94 Plan of Treatment Health Maintenance Due Date Last Done Comments HEPATITIS C SCREENING 1954 PHYSICAL (COMPREHENSIVE) 1961 EXAM HIV SCREENING 1969 DTAP/TDAP VACCINES (1 - 1972 Tdap) CERVICAL CANCER SCREENING 1984 BREAST CANCER SCREENING 1994 SHINGLES RECOMBINANT 2004 VACCINE (1 of 2) INFLUENZA VACCINE 03/06/2018 COLORECTAL CANCER 05/17/2025 05/17/2015 SCREENING Results Not on filefrom Last 3 Months Insurance Payer Benefit Subscriber ID Type Phone Address Plan / Group BC[facility] xxxxxxxxxxxx PPO [facility] (Home) [place] [address] Advance Directives Patient has advance care planning documents, and code status on file. For more information, please contact: [facility] [address] [place] [address] Date Inactivated Comments Code Status Date Activated 10/21/2013 2:52 PM Full Code 10/20/2013 7:26 PM Provider has discussed Code Status No, more discussion w/Patient or Family? needed
--- OUTSIDE RECORDS SUMMARY | 2018-09-14 09:59 | XMS REPORT | Continuity of Care Document ---
Author Author [facility] Organization [facility] Address Unknown Phone Unavailable Allergies Active Description Code Type Severity Reaction Onset Reported/Identified Relationship to Patient Clinical Status Yes Penicillins [id number] Drug Allergy Unknown N/A 11/08/2013 Yes piroxicam [id number] Drug Allergy Unknown N/A 11/08/2013 Yes sulfacetamide sodium [id number] Drug Allergy Unknown N/A 11/08/2013 Yes gluten [id number] Drug Allergy Unknown N/A 11/10/2013 Yes metoclopramide [id number] Drug Allergy Unknown N/A 11/03/2015 Yes piroxicam [id number] Drug Allergy Unknown Pt has received 01/29/2018 Yes clarithromycin [id number] Drug Allergy Unknown N/A 01/30/2018 Medications There is no data. Problems Date Dx Coded Attending Type Code Diagnosis Diagnosed By 06/21/2012 Ot 780.4 DIZZINESS AND GIDDINESS 02/19/2013 MAUREEN SAUCEDO DO S Ot 244.9 HYPOTHYROIDISM NOS 02/19/2013 MAUREEN SAUCEDO DO S Ot 266.2 B-COMPLEX DEFIC NEC 02/19/2013 MAUREEN SAUCEDO DO S Ot 272.4 HYPERLIPIDEMIA NEC/NOS 02/19/2013 MAUREEN SAUCEDO DO S Ot 277.7 DYSMETABOLIC SYNDROME X 02/19/2013 MAUREEN SAUCEDO DO S Ot 300.00 ANXIETY STATE NOS 02/19/2013 MAUREEN SAUCEDO DO S Ot 401.9 HYPERTENSION NOS 02/19/2013 MAUREEN SAUCEDO DO S Ot 486 PNEUMONIA, ORGANISM NOS 02/19/2013 MARUEEN SAUCEDO DO S Ot 530.81 ESOPHAGEAL REFLUX 02/19/2013 MAUREEN SAUCEDO DO S Ot 562.11 DIVERTICULITIS COLON (W/O MENT OF HEMORR 02/19/2013 MAUREEN SAUCEDO DO S Ot 710.0 SYST LUPUS ERYTHEMATOSIS 02/19/2013 GLADYS SAUCEDO DOQUELINE S Ot 715.90 OSTEOARTHROS NOS-UNSPEC 02/19/2013 MARISSA PEPPER MAUREEN S Ot 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 02/19/2013 MARISSA PEPPER MAUREEN S Ot 780.52 INSOMNIA, UNSPECIFIED 02/19/2013 MARISSA PEPPER MAUREEN S Ot V07.4 HORMONE REPLACEMENT THERAPY (POSTMENOPAU 02/19/2013 MARISSA PEPPER MAUREEN S Ot V58.69 OTH MED,LT,CURRENT USE 03/30/2013 MARISSA PEPPER MAUREEN S Ot 244.9 HYPOTHYROIDISM NOS 03/30/2013 MARISSA PEPPER MAUREEN S Ot 250.00 DIAB HARSHA WO COMPL, TYPE II OR UNSPEC TY 03/30/2013 MARISSA PEPPER MAUREEN S Ot 266.2 B-COMPLEX DEFIC NEC 03/30/2013 MARISSA PEPPER MAUREEN S Ot 276.8 HYPOPOTASSEMIA 03/30/2013 MARISSA PEPPER MAUREEN S Ot 300.00 ANXIETY STATE NOS 03/30/2013 MARISSA PEPPER MAUREEN S Ot 401.9 HYPERTENSION NOS 03/30/2013 MARISSA PEPPER MAUREEN S Ot 560.9 INTESTINAL OBSTRUCT NOS 03/30/2013 MARISSA PEPPER MAUREEN S Ot 710.0 SYST LUPUS ERYTHEMATOSIS 03/30/2013 MARISSA PEPPER MAUREEN S Ot 790.5 ABN SERUM ENZY LEVEL NEC 03/30/2013 MARISSA PEPPER MAUREEN S Ot V12.79 PERSONAL HISTORY OTH SPEC DIGESTIVE SYST 08/16/2013 MOIRA SAUCEDO DOLINE S Ot 244.9 HYPOTHYROIDISM NOS 08/16/2013 MARISSA PEPPER MAUREEN S Ot 245.2 CHR LYMPHOCYT THYROIDIT 08/16/2013 MARISSA PEPPER MAUREEN S Ot 251.1 HYPOGLYCEMIA NEC 08/16/2013 MARISSA PEPPER MAUREEN S Ot 266.2 B-COMPLEX DEFIC NEC 08/16/2013 MARISSA PEPPER MAUREEN S Ot 272.4 HYPERLIPIDEMIA NEC/NOS 08/16/2013 BIJALNDMOIRA GUEVARA DOLINE S Ot 401.9 HYPERTENSION NOS 08/16/2013 MOIRA SAUCEDO DOLINE S Ot 530.81 ESOPHAGEAL REFLUX 08/16/2013 MAUREEN SAUCEDO DO S Ot 560.1 PARALYTIC ILEUS 08/16/2013 MAUREEN SAUCEDO DO S Ot 562.10 DIVERTICULOSIS COLON (W/O MENT OF HEMORR 08/16/2013 MAUREEN SAUCEDO DO S Ot 710.0 SYST LUPUS ERYTHEMATOSIS 08/16/2013 MAUREEN SAUCEDO DO S Ot 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 08/16/2013 MAUREEN SAUCEDO DO S Ot 787.02 NAUSEA ALONE 08/16/2013 MAUREEN SAUCEDO DO S Ot 789.00 ABDOMINAL PAIN, UNSPECIFIED SITE 08/16/2013 MAUREEN SAUCEDO DO S Ot 790.6 ABN BLOOD CHEMISTRY NEC 11/14/2013 MAUREEN SAUCEDO DO S Ot 244.9 HYPOTHYROIDISM NOS 11/14/2013 MOIRA SAUCEDO DOLINE S Ot 276.69 OTHER FLUID OVERLOAD 11/14/2013 MAUREEN SAUCEDO DO S Ot 298.9 PSYCHOSIS NOS 11/14/2013 MAUREEN SAUCEDO DO S Ot 346.90 MIGRAINE UNSPECIFIED W/O INTRACT MGRN W/ 11/14/2013 MAUREEN SAUCEDO DO S Ot 493.90 ASTHMA, UNSPECIFIED 11/14/2013 MAUREEN SAUCEDO DO S Ot 518.0 PULMONARY COLLAPSE 11/14/2013 MAUREEN SAUCEDO DO S Ot 530.81 ESOPHAGEAL REFLUX 11/14/2013 MAUREEN SAUCEDO DO S Ot 553.3 DIAPHRAGMATIC HERNIA 11/14/2013 MAUREEN SAUCEDO DO S Ot 555.9 REGIONAL ENTERITIS NOS 11/14/2013 MAUREEN SAUCEDO DO S Ot 562.11 DIVERTICULITIS COLON (W/O MENT OF HEMORR 11/14/2013 MAUREEN SAUCEDO DO S Ot 564.00 UNSPEC CONSTIPATION 11/14/2013 MAUREEN SAUCEDO DO S Ot 564.1 IRRITABLE BOWEL SYNDROME 11/14/2013 MAUREEN SAUCEDO DO S Ot 710.0 SYST LUPUS ERYTHEMATOSIS 11/14/2013 MAUREEN SAUCEDO DO S Ot 714.9 INFLAMM POLYARTHROP NOS 11/14/2013 MAUREEN SAUCEDO DO S Ot 722.10 LUMBAR DISC DISPLACEMENT 11/14/2013 MAUREEN SAUCEDO DO S Ot 722.52 LUMB/LUMBOSAC DISC DEGEN 11/14/2013 MAUREEN SAUCEDO DO S Ot 733.90 BONE CARTILAGE DIS NOS 11/14/2013 MAUREEN SAUCEDO DO S Ot 760.9 MATERNAL COND NOS AFF NB 11/14/2013 MAUREEN SAUCEDO DO S Ot 789.01 ABDOMINAL PAIN, RIGHT UPPER QUADRANT 11/14/2013 MAUREEN SAUCEDO DO S Ot 799.02 HYPOXEMIA 11/14/2013 MAUREEN SAUCEDO DO S Ot E932.0 ADV EFF CORTICOSTEROIDS 11/14/2013 MAUREEN SAUCEDO DO S Ot E935.2 ADV EFF OPIATES 05/27/2014 MAUREEN SAUCEDO DO S Ot 244.9 HYPOTHYROIDISM NOS 05/27/2014 MAUREEN SAUCEDO DO S Ot 272.4 HYPERLIPIDEMIA NEC/NOS 05/27/2014 MAUREEN SAUCEDO DO S Ot 276.8 HYPOPOTASSEMIA 05/27/2014 MAUREEN SAUCEDO DO S Ot 401.9 HYPERTENSION NOS 05/27/2014 MAUREEN SAUCEDO DO S Ot 530.81 ESOPHAGEAL REFLUX 05/27/2014 MAUREEN SAUCEDO DO S Ot 558.9 NONINF GASTROENTERIT NEC 05/27/2014 MAUREEN SAUCEDO DO S Ot 564.00 UNSPEC CONSTIPATION 05/27/2014 MAUREEN SAUCEDO DO S Ot 599.0 URIN TRACT INFECTION NOS 05/27/2014 MAUREEN SAUCEDO DO S Ot 710.0 SYST LUPUS ERYTHEMATOSIS 05/27/2014 MOIRA SAUCEDO DOLINE S Ot 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 06/22/2015 MAUREEN SAUCEDO DO S Ot 562.10 06/22/2015 MAUREEN SAUCEDO DO S Ot 787.01 06/22/2015 MAUREEN SAUCEDO DO S Ot 789.00 06/22/2015 MAUREEN SAUCEDO DO S Ot 789.00 06/22/2015 MAUREEN SAUCEDO DO S Ot 790.6 06/22/2015 MAUREEN SAUCEDO DO S Ot 789.00 06/22/2015 GLADYS SAUCEDO DOQUELINE S Ot 571.8 06/22/2015 ORENDER DO, MAUREEN S Ot 593.9 06/22/2015 BIJALNDER DO, MAUREEN S Ot 789.01 06/22/2015 BIJALNDER DO, MAUREEN S Ot 571.8 06/22/2015 BIJALNDER DO, MAUREEN S Ot 593.9 06/22/2015 ALO JACKSON FACC, ALI FACP CCDS Ot 401.9 06/22/2015 ALO JACKSON FACC, ALI FACP CCDS Ot 424.0 06/22/2015 ALO JACKSON FACC, ALI FACP CCDS Ot 786.09 06/22/2015 ALO JACKSON FACC, ALI FACP CCDS Ot 786.50 06/22/2015 ALO MCHUGHC, ALI FACP CCDS Ot 794.31 06/22/2015 ALO JACKSON FACC, ALI FACP CCDS Ot 244.9 06/22/2015 ALO JACKSON FACC, ALI FACP CCDS Ot 401.9 06/22/2015 ALO JACKSON FACC, ALI FACP CCDS Ot 424.0 06/22/2015 ALO JACKSON FACC, ALI FACP CCDS Ot 593.9 06/22/2015 ALO JACKSON FACC, ALI FACP CCDS Ot 786.09 06/22/2015 ALO MCHUGHC, ALI FACP CCDS Ot 786.50 06/22/2015 ALO MCHUGHC, ALI FACP CCDS Ot 794.31 06/22/2015 JACEY SPANGLER HAND SPLITTER Ot 562.10 06/22/2015 JACEY SPANGLER HAND SPLITTER Ot 571.8 06/22/2015 JACEY SPANGLER HAND SPLITTER Ot 789.1 06/22/2015 ALO MCHUGHC, ALI FACP CCDS Ot E78.5 HYPERLIPIDEMIA, UNSPECIFIED 06/22/2015 ALO JACKSON FACC, ALI FACP CCDS Ot E89.0 POSTPROCEDURAL HYPOTHYROIDISM 06/22/2015 ALO JACKSON FACC, ALI FACP CCDS Ot I10 ESSENTIAL (PRIMARY) HYPERTENSION 06/22/2015 ALO MCHUGHC, ALI FACP CCDS Ot R07.89 OTHER CHEST PAIN 06/22/2015 ALO JACKSON FACC, ALI FACP CCDS Ot Z79.899 OTHER POULTRY SCALDER (CURRENT) DRUG THERAPY 09/22/2015 ORENDER DO, MAUREEN S Ot 562.10 09/22/2015 ORENDER DO, MAUREEN S Ot 787.01 09/22/2015 ORENDER DO, MAUREEN S Ot 789.00 09/22/2015 ORENDER DO, MAUREEN S Ot 789.00 09/22/2015 ORENDER DO, MAUREEN S Ot 790.6 09/22/2015 ORENDER DO, MAUREEN S Ot 789.00 09/22/2015 ORENDER DO, MAUREEN S Ot 571.8 09/22/2015 ORENDER DO, MAUREEN S Ot 593.9 09/22/2015 ORENDER DO, MAUREEN S Ot 789.01 09/22/2015 ORENDER DO, MAURENE S Ot 571.8 09/22/2015 ORENDER DO, MAUREEN S Ot 593.9 09/22/2015 ALO JACKSON FACC, ALI FACP CCDS Ot 401.9 09/22/2015 ALO JACKSON FAC, ALI FACP CCDS Ot 424.0 09/22/2015 ALO JACKSON FAC, ALI FACP CCDS Ot 786.09 09/22/2015 ALO JACKSON FAC, ALI FACP CCDS Ot 786.50 09/22/2015 ALO JACKSON FACC, ALI FACP CCDS Ot 794.31 09/22/2015 ALO JACKSON FACC, ALI FACP CCDS Ot 244.9 09/22/2015 ALO JACKSON FACC, ALI FACP CCDS Ot 401.9 09/22/2015 ALO JACKSON FACC, ALI FACP CCDS Ot 424.0 09/22/2015 ALO JACKSON FACC, ALI FACP CCDS Ot 593.9 09/22/2015 ALO JACKSON FACC, ALI FACP CCDS Ot 786.09 09/22/2015 ALO JACKSON FACC, ALI FACP CCDS Ot 786.50 09/22/2015 ALO JACKSON FACC, ALI FACP CCDS Ot 794.31 09/22/2015 JACEY SPANGLER HAND SPLITTER Ot 562.10 09/22/2015 JACEY SPANGLER HAND SPLITTER Ot 571.8 09/22/2015 JACEY SPANGLER HAND SPLITTER Ot 789.1 10/14/2015 ORENDER DO, MAUREEN S Ot R10.11 10/14/2015 ORENDER DO, MAUREEN S Ot R10.31 10/14/2015 ORENDER DO, MAUREEN S Ot R10.32 10/14/2015 ORENDER DO, MAUREEN S Ot Z85.528 10/19/2015 MALINDA HARRISON N [employer]EST PATROLMAN Ot R05 10/19/2015 MALINDA HARRISON FOREST PATROLMAN Ot R09.89 11/01/2015 MALINDA HARRISON [employer] PAT[employer]OLMAN Ot R05 11/01/2015 MALINDA HARRISON [employer] PAT[employer]OLMAN Ot R09.89 11/04/2015 ORENDER DO, MAUREEN S Ot 562.10 11/04/2015 ORENDER DO, MAUREEN S Ot 787.01 11/04/2015 ORENDER DO, MAUREEN S Ot 789.00 11/04/2015 ORENDER DO, MAUREEN S Ot 789.00 11/04/2015 ORENDER DO, MAUREEN S Ot 790.6 11/04/2015 ORENDER DO, MAUREEN S Ot 789.00 11/04/2015 ORENDER DO, MAUREEN S Ot 571.8 11/04/2015 ORENDER DO, MAUREEN S Ot 593.9 11/04/2015 ORENDER DO, MAUREEN S Ot 789.01 11/04/2015 ORENDER DO, MAUREEN S Ot 571.8 11/04/2015 ORENDER DO, MAUREEN S Ot 593.9 11/04/2015 ALO JACKSON FAC, KIRK FACP CCDS Ot 401.9 11/04/2015 ALO MCHUGH, KIRK FACP CCDS Ot 424.0 11/04/2015 ALO JACKSON FACC, ALI FACP CCDS Ot 786.09 11/04/2015 ALO MCHUGHC, KIRK FACP CCDS Ot 786.50 11/04/2015 ALO MCHUGHC, ALI FACP CCDS Ot 794.31 11/04/2015 ALO JACKSON FACC, ALI FACP CCDS Ot 244.9 11/04/2015 ALO JACKSON [facility], ALI FACP CCDS Ot 401.9 11/04/2015 ALO JACKSON FAC, ALI FACP CCDS Ot 424.0 11/04/2015 ALO JACKSON FAC, ALI FACP CCDS Ot 593.9 11/04/2015 ALO JACKSON [facility], ALI FACP CCDS Ot 786.09 11/04/2015 ALO JACKSON [facility], ALI FACP CCDS Ot 786.50 11/04/2015 ALO JACKSON [facility], ALI FACP CCDS Ot 794.31 11/04/2015 MARGARITASALIMA JACEY Barriga HAND SPLITTER Ot 562.10 11/04/2015 MARGARITASALIMA JACEY M HAND SPLITTER Ot 571.8 11/04/2015 CRYS JACEY Barriga HAND SPLITTER Ot 789.1 11/04/2015 MAUREEN SAUCEDO DO S Ot R10.11 11/04/2015 MAUREEN SAUCEDO DO S Ot R10.31 11/04/2015 MAUREEN SAUCEDO DO S Ot R10.32 11/04/2015 MAUREEN SAUCEDO DO S Ot Z85.528 11/04/2015 MALINDA HARRISON [employer] PAT[employer]OLMAN Ot R05 11/04/2015 MALINDA HARRISON [employer] PAT[employer] Ot R09.89 11/05/2015 MAUREEN SAUCEDO DO Ot I10 ESSENTIAL (PRIMARY) HYPERTENSION 11/05/2015 MAUREEN SAUCEDO DO S Ot I25.10 ATHSCL HEART DISEASE OF [place] CORONARY 11/05/2015 MAUREEN SAUCEDO DO Ot I25.2 OLD MYOCARDIAL INFARCTION 11/05/2015 MAUREEN SAUCEDO DO S Ot K21.9 GASTRO-ESOPHAGEAL REFLUX DISEASE WITHOUT 11/05/2015 MAUREEN SAUCEDO DO S Ot K57.90 DVRTCLOS OF INTEST, PART UNSP, W/O PERF 11/05/2015 MAUREEN SAUCEDO DO S Ot K63.89 OTHER SPECIFIED DISEASES OF INTESTINE 11/05/2015 MAUREEN SAUCEDO DO S Ot K64.8 OTHER HEMORRHOIDS 11/05/2015 MAUREEN SAUCEDO DO Ot Z86.010 PERSONAL HISTORY OF COLONIC POLYPS 11/11/2015 [facility] S Ot I10 11/11/2015 [facility] S Ot I25.10 11/11/2015 [facility] DO, MAUREEN S Ot I25.2 11/11/2015 [facility] S Ot K21.9 11/11/2015 [facility]EN S Ot K57.90 11/11/2015 [facility], MAUREEN S Ot K63.89 11/11/2015 [facility] DO, MAUREEN S Ot K64.8 11/11/2015 [facility] DO, MAUREEN S Ot Z86.010 11/24/2015 [facility] DO, MAUREEN S Ot R06.00 DYSPNEA, UNSPECIFIED 11/24/2015 [facility] DO, MAUREEN S Ot R07.9 CHEST PAIN, UNSPECIFIED 11/26/2015 [facility]EN S Ot R06.00 DYSPNEA, UNSPECIFIED 11/26/2015 [facility], [facility]EN S Ot R07.9 CHEST PAIN, UNSPECIFIED 11/29/2015 [facility]EN S Ot R06.00 DYSPNEA, UNSPECIFIED 11/29/2015 [facility]EN S Ot R07.9 CHEST PAIN, UNSPECIFIED 12/08/2015 [facility] DO, MAUREEN S Ot R06.00 DYSPNEA, UNSPECIFIED 12/08/2015 [facility]EN S Ot R07.9 CHEST PAIN, UNSPECIFIED 12/20/2015 [facility] DO, MAUREEN S Ot I10 ESSENTIAL (PRIMARY) HYPERTENSION 12/20/2015 [facility] DO, MAUREEN S Ot I25.10 ATHSCL HEART DISEASE OF [place] CORONARY 12/20/2015 [facility]EN S Ot I25.2 OLD MYOCARDIAL INFARCTION 12/20/2015 [facility] DO, MAUREEN S Ot K21.9 GASTRO-ESOPHAGEAL REFLUX DISEASE WITHOUT 12/20/2015 [facility], [facility]EN S Ot K57.90 DVRTCLOS OF INTEST, PART UNSP, W/O PERF 12/20/2015 [facility] DOGLADYSMAUREEN S Ot K63.89 OTHER SPECIFIED DISEASES OF INTESTINE 12/20/2015 MAUREEN SAUCEDO DO S Ot K64.8 OTHER HEMORRHOIDS 12/20/2015 MAUREEN SAUCEDO DO S Ot Z86.010 PERSONAL HISTORY OF COLONIC POLYPS 05/22/2016 MAUREEN SAUCEDO DO Ot K76.0 FATTY (CHANGE OF) LIVER, NOT ELSEWHERE C 05/25/2016 MOIRA SAUCEDO DOLINE S Ot 562.10 DIVERTICULOSIS COLON (W/O MENT OF HEMORR 05/25/2016 MOIRA SAUCEDO DOLINE S Ot 787.01 NAUSEA WITH VOMITING 05/25/2016 MOIRA SAUCEDO DOLINE S Ot 789.00 ABDOMINAL PAIN, UNSPECIFIED SITE 05/25/2016 MOIRA SAUCEDO DOLINE S Ot 789.00 ABDOMINAL PAIN, UNSPECIFIED SITE 05/25/2016 MOIRA SAUCEDO DOLINE S Ot 790.6 ABN BLOOD CHEMISTRY NEC 05/25/2016 MOIRA SAUCEDO DOLINE S Ot 789.00 ABDOMINAL PAIN, UNSPECIFIED SITE 05/25/2016 MOIRA SAUCEDO DOLINE S Ot 571.8 CHRONIC LIVER DIS NEC 05/25/2016 MOIRA SAUCEDO DOLINE S Ot 593.9 RENAL URETERAL DIS NOS 05/25/2016 MOIRA SAUCEDO DOLINE S Ot 789.01 ABDOMINAL PAIN, RIGHT UPPER QUADRANT 05/25/2016 MOIRA SAUCEDO DOLINE S Ot 571.8 CHRONIC LIVER DIS NEC 05/25/2016 MOIRA SAUCEDO DOLINE S Ot 593.9 RENAL URETERAL DIS NOS 05/25/2016 ALO JACKSON FACC, KIRK FACP CCDS Ot 401.9 HYPERTENSION NOS 05/25/2016 ALO JACKSON FACC, KIRK FACP CCDS Ot 424.0 MITRAL VALVE DISORDER 05/25/2016 ALO JACKSON FACC, KIRK FACP CCDS Ot 786.09 RESPIRATORY ABNORM NEC 05/25/2016 ALO JACKSON FACC, KIRK FACP CCDS Ot 786.50 CHEST PAIN NOS 05/25/2016 ALO JACKSON FACC, KIRK FACP CCDS Ot 794.31 ABNORM ELECTROCARDIOGRAM 05/25/2016 ALO JACKSON FACC, KIRK FACP CCDS Ot 244.9 HYPOTHYROIDISM NOS 05/25/2016 ALO JACKSON FACC, KIRK FACP CCDS Ot 401.9 HYPERTENSION NOS 05/25/2016 ALO JACKSON FACC, KIRK [facility] CCDS Ot 424.0 MITRAL VALVE DISORDER 05/25/2016 ALO JACKSON FACC, KIRK FACP CCDS Ot 593.9 RENAL URETERAL DIS NOS 05/25/2016 ALO JACKSON FACC, KIRK FACP CCDS Ot 786.09 RESPIRATORY ABNORM NEC 05/25/2016 ALO JACKSON FACC, KIRK FACP CCDS Ot 786.50 CHEST PAIN NOS 05/25/2016 ALO JACKSON FACC, KIRK [facility] CCDS Ot 794.31 ABNORM ELECTROCARDIOGRAM 05/25/2016 CRYS JACEY Linus HAND SPLITTER Ot 562.10 DIVERTICULOSIS COLON (W/O MENT OF HEMORR 05/25/2016 JACEY SPANGLER HAND SPLITTER Ot 571.8 CHRONIC LIVER DIS NEC 05/25/2016 MARGARITASALIMA JACEY Linus HAND SPLITTER Ot 789.1 HEPATOMEGALY 05/25/2016 ORENDER DO, MAUREEN S Ot R10.11 RIGHT UPPER QUADRANT PAIN 05/25/2016 ORENDER DO, MAUREEN S Ot R10.31 RIGHT LOWER QUADRANT PAIN 05/25/2016 ORENDER DO, MAUREEN S Ot R10.32 LEFT LOWER QUADRANT PAIN 05/25/2016 ORENDER DO, MAUREEN S Ot Z85.528 PERSONAL HISTORY OF OTHER MALIGNANT NEOP 05/25/2016 MALINDA HARRISON FOR[employer] PATROLMAN Ot R05 COUGH 05/25/2016 MALINDA HARRISON FOR[employer] PATROLMAN Ot R09.89 OTH SYMPTOMS AND SIGNS INVOLVING THE CIR 05/25/2016 ORENDER DO, MAUREEN S Ot R06.00 DYSPNEA, UNSPECIFIED 05/25/2016 ORENDER DO, MAUREEN S Ot R07.9 CHEST PAIN, UNSPECIFIED 05/25/2016 ORENDER DO, MAUREEN S Ot R06.00 DYSPNEA, UNSPECIFIED 05/25/2016 ORENDER DO, MAUREEN S Ot R07.9 CHEST PAIN, UNSPECIFIED 05/25/2016 ORENDER DO, MAUREEN S Ot K76.0 FATTY (CHANGE OF) LIVER, NOT ELSEWHERE C 05/30/2016 ORENDER DO, MAUREEN S Ot 562.10 DIVERTICULOSIS COLON (W/O MENT OF HEMORR 05/30/2016 ORENDER DO, MAUREEN S Ot 787.01 NAUSEA WITH VOMITING 05/30/2016 BIJALNDER DO, MAUREEN S Ot 789.00 ABDOMINAL PAIN, UNSPECIFIED SITE 05/30/2016 ORENDER DO, MAUREEN S Ot 789.00 ABDOMINAL PAIN, UNSPECIFIED SITE 05/30/2016 ORENDER DO, MAUREEN S Ot 790.6 ABN BLOOD CHEMISTRY NEC 05/30/2016 BIJALNDER DO, MAUREEN S Ot 789.00 ABDOMINAL PAIN, UNSPECIFIED SITE 05/30/2016 ORENDER DO, MAUREEN S Ot 571.8 CHRONIC LIVER DIS NEC 05/30/2016 ORENDER DO, MAUREEN S Ot 593.9 RENAL URETERAL DIS NOS 05/30/2016 BIJALNDER DO, MAUREEN S Ot 789.01 ABDOMINAL PAIN, RIGHT UPPER QUADRANT 05/30/2016 BIJALNDER DO, MAUREEN S Ot 571.8 CHRONIC LIVER DIS NEC 05/30/2016 ORENDER DO, MAUREEN S Ot 593.9 RENAL URETERAL DIS NOS 05/30/2016 AOL JACKSON FACWild, ALI FACP CCDS Ot 401.9 HYPERTENSION NOS 05/30/2016 ALO JACKSON FACWild, ALI FACP CCDS Ot 424.0 MITRAL VALVE DISORDER 05/30/2016 ALO JACKSON FACC, ALI FACP CCDS Ot 786.09 RESPIRATORY ABNORM NEC 05/30/2016 ALO JACKSON FACC, ALI FACP CCDS Ot 786.50 CHEST PAIN NOS 05/30/2016 ALO JACKSON FACC, ALI FACP CCDS Ot 794.31 ABNORM ELECTROCARDIOGRAM 05/30/2016 ALO JACKSON FACC, ALI FACP CCDS Ot 244.9 HYPOTHYROIDISM NOS 05/30/2016 ALO JACKSON FACC, ALI FACP CCDS Ot 401.9 HYPERTENSION NOS 05/30/2016 ALO JACKSON FACWild, ALI FACP CCDS Ot 424.0 MITRAL VALVE DISORDER 05/30/2016 ALO JACKSON FACWild, ALI FACP CCDS Ot 593.9 RENAL URETERAL DIS NOS 05/30/2016 ALO JACKSON FACWild, ALI FACP CCDS Ot 786.09 RESPIRATORY ABNORM NEC 05/30/2016 ALO JACKSON FACC, ALI FACP CCDS Ot 786.50 CHEST PAIN NOS 05/30/2016 ALO JACKSON FACWild, ALI FACP CCDS Ot 794.31 ABNORM ELECTROCARDIOGRAM 05/30/2016 JACEY SPANGLER HAND SPLITTER Ot 562.10 DIVERTICULOSIS COLON (W/O MENT OF HEMORR 05/30/2016 JACEY SPANGLER HAND SPLITTER Ot 571.8 CHRONIC LIVER DIS NEC 05/30/2016 JACEY SPANGLER HAND SPLITTER Ot 789.1 HEPATOMEGALY 05/30/2016 ORENDER DO, MAUREEN S Ot R10.11 RIGHT UPPER QUADRANT PAIN 05/30/2016 ORENDER DO, MAUREEN S Ot R10.31 RIGHT LOWER QUADRANT PAIN 05/30/2016 ORENDER DO, MAUREEN S Ot R10.32 LEFT LOWER QUADRANT PAIN 05/30/2016 ORENDER DO, MAUREEN S Ot Z85.528 PERSONAL HISTORY OF OTHER MALIGNANT NEOP 05/30/2016 MALINDA HARRISON FOREST PATROLMAN Ot R05 COUGH 05/30/2016 MALINDA HARRISON FOR[employer] PATROLMAN Ot R09.89 OTH SYMPTOMS AND SIGNS INVOLVING THE CIR 05/30/2016 ORENDER DO, MAUREEN S Ot R06.00 DYSPNEA, UNSPECIFIED 05/30/2016 ORENDER DO, MAUREEN S Ot R07.9 CHEST PAIN, UNSPECIFIED 05/30/2016 ORENDER DO, MAUREEN S Ot R06.00 DYSPNEA, UNSPECIFIED 05/30/2016 ORENDER DO, MAUREEN S Ot R07.9 CHEST PAIN, UNSPECIFIED 05/30/2016 ORENDER DO, MAUREEN S Ot K76.0 FATTY (CHANGE OF) LIVER, NOT ELSEWHERE C 05/30/2016 ORENDER DO, MAUREEN S Ot E03.9 HYPOTHYROIDISM, UNSPECIFIED 05/30/2016 ORENDER DO, MAUREEN S Ot E04.9 NONTOXIC GOITER, UNSPECIFIED 05/30/2016 ORENDER DO, MAUREEN S Ot R13.10 DYSPHAGIA, UNSPECIFIED 06/01/2016 ORENDER DO, MAUREEN S Ot K76.0 FATTY (CHANGE OF) LIVER, NOT ELSEWHERE C 06/07/2016 ORENDER DO, MAUREEN S Ot E03.9 HYPOTHYROIDISM, UNSPECIFIED 06/07/2016 ORENDER DO, MAUREEN S Ot E04.9 NONTOXIC GOITER, UNSPECIFIED 06/07/2016 ORENDER DO, MAUREEN S Ot R13.10 DYSPHAGIA, UNSPECIFIED 06/16/2016 MOIRA SAUCEDO DOLINE S Ot 562.10 DIVERTICULOSIS COLON (W/O MENT OF HEMORR 06/16/2016 MOIRA SAUCEDO DOLINE S Ot 787.01 NAUSEA WITH VOMITING 06/16/2016 MARISSA PEPPER, MAUREEN S Ot 789.00 ABDOMINAL PAIN, UNSPECIFIED SITE 06/16/2016 BIJALNDMOIRA GUEVARA DOLINE S Ot 789.00 ABDOMINAL PAIN, UNSPECIFIED SITE 06/16/2016 MARISSA PEPPER, MAUREEN S Ot 790.6 ABN BLOOD CHEMISTRY NEC 06/16/2016 GLADYS SAUCEDO DOQUELINE S Ot 789.00 ABDOMINAL PAIN, UNSPECIFIED SITE 06/16/2016 MARISSA PEPPER, MAUREEN S Ot 571.8 CHRONIC LIVER DIS NEC 06/16/2016 MARISSA PEPPER, MAUREEN S Ot 593.9 RENAL URETERAL DIS NOS 06/16/2016 MOIRA SAUCEDO DOLINE S Ot 789.01 ABDOMINAL PAIN, RIGHT UPPER QUADRANT 06/16/2016 GLADYS SAUCEDO DOQUELINE S Ot 571.8 CHRONIC LIVER DIS NEC 06/16/2016 MARISSA PEPPER, MAUREEN S Ot 593.9 RENAL URETERAL DIS NOS 06/16/2016 ALO JACKSON FACC, ALI FACP CCDS Ot 401.9 HYPERTENSION NOS 06/16/2016 ALO JACKSON FACC, ALI FACP CCDS Ot 424.0 MITRAL VALVE DISORDER 06/16/2016 ALO JACKSON FACC, ALI FACP CCDS Ot 786.09 RESPIRATORY ABNORM NEC 06/16/2016 ALO JACKSON FACC, ALI FACP CCDS Ot 786.50 CHEST PAIN NOS 06/16/2016 ALO JACKSON FACC, ALI FACP CCDS Ot 794.31 ABNORM ELECTROCARDIOGRAM 06/16/2016 ALO JACKSON FACC ALI FACP CCDS Ot 244.9 HYPOTHYROIDISM NOS 06/16/2016 ALO JACKSON FACC, ALI FACP CCDS Ot 401.9 HYPERTENSION NOS 06/16/2016 ALO JACKSON FACC, ALI FACP CCDS Ot 424.0 MITRAL VALVE DISORDER 06/16/2016 KIRK PRAJAPATI MD, FACC FACP CCDS Ot 593.9 RENAL URETERAL DIS NOS 06/16/2016 ALO JACKSON FACC, ALI FACP CCDS Ot 786.09 RESPIRATORY ABNORM NEC 06/16/2016 ALO JACKSON FAC, [facility] CCDS Ot 786.50 CHEST PAIN NOS 06/16/2016 ALO JACKSON FAC, [facility] CCDS Ot 794.31 ABNORM ELECTROCARDIOGRAM 06/16/2016 JACEY SPANGLER HAND SPLITTER Ot 562.10 DIVERTICULOSIS COLON (W/O MENT OF HEMORR 06/16/2016 JACEY SPANGLER HAND SPLITTER Ot 571.8 CHRONIC LIVER DIS NEC 06/16/2016 MARGARITAMACKJACEY CURRY HAND SPLITTER Ot 789.1 HEPATOMEGALY 06/16/2016 ORENDER DO, MAUREEN S Ot R10.11 RIGHT UPPER QUADRANT PAIN 06/16/2016 ORENDER DO, MAUREEN S Ot R10.31 RIGHT LOWER QUADRANT PAIN 06/16/2016 ORENDER DO, MAUREEN S Ot R10.32 LEFT LOWER QUADRANT PAIN 06/16/2016 ORENDER DO, MAUREEN S Ot Z85.528 PERSONAL HISTORY OF OTHER MALIGNANT NEOP 06/16/2016 MALINDA HARRISON FOREST PATROLMAN Ot R05 COUGH 06/16/2016 MALINDA HARRISON FOREST PATROLMAN Ot R09.89 OTH SYMPTOMS AND SIGNS INVOLVING THE CIR 06/16/2016 ORENDER DO, MAUREEN S Ot R06.00 DYSPNEA, UNSPECIFIED 06/16/2016 ORENDER DO, MAUREEN S Ot R07.9 CHEST PAIN, UNSPECIFIED 06/16/2016 ORENDER DO, MAUREEN S Ot R06.00 DYSPNEA, UNSPECIFIED 06/16/2016 ORENDER DO, MAUREEN S Ot R07.9 CHEST PAIN, UNSPECIFIED 06/16/2016 ORENDER DO, MAUREEN S Ot K76.0 FATTY (CHANGE OF) LIVER, NOT ELSEWHERE C 06/16/2016 ORENDER DO, MAUREEN S Ot E03.9 HYPOTHYROIDISM, UNSPECIFIED 06/16/2016 ORENDER DO, MAUREEN S Ot E04.9 NONTOXIC GOITER, UNSPECIFIED 06/16/2016 ORENDER DO, MAUREEN S Ot R13.10 DYSPHAGIA, UNSPECIFIED 06/16/2016 TESHA TURCIOS DO Ot E03.9 HYPOTHYROIDISM, UNSPECIFIED 06/16/2016 TESHA TURCIOS DO Ot N39.0 URINARY TRACT INFECTION, SITE NOT SPECIF 06/16/2016 TESHA TURCIOS DO Saundra Ot R10.11 RIGHT UPPER QUADRANT PAIN 06/16/2016 TESHA TURCIOS DO Saundra Ot R73.9 HYPERGLYCEMIA, UNSPECIFIED 06/16/2016 TESHA TURCIOS DO Saundra Ot Z79.899 OTHER POULTRY SCALDER (CURRENT) DRUG THERAPY 10/17/2016 SHANNONER MOIRA PEPPERLINE S Ot R06.00 DYSPNEA, UNSPECIFIED 10/22/2016 ORENDER , MAUREEN S Ot R06.00 DYSPNEA, UNSPECIFIED 10/25/2016 ORENDER , MAUREEN S Ot R06.00 DYSPNEA, UNSPECIFIED 12/13/2016 BAIMA, JAYLEN L HAND SPLITTER Ot I10 ESSENTIAL (PRIMARY) HYPERTENSION 12/13/2016 BAIMA, JAYLEN L HAND SPLITTER Ot R00.2 PALPITATIONS 12/13/2016 BAIMA, JAYLEN L HAND SPLITTER Ot R06.09 OTHER FORMS OF DYSPNEA 12/13/2016 BAIMA, JAYLEN L HAND SPLITTER Ot R07.89 OTHER CHEST PAIN 12/13/2016 BAIMA, JAYLEN L HAND SPLITTER Ot I10 ESSENTIAL (PRIMARY) HYPERTENSION 12/13/2016 BAIMA, JAYLEN L HAND SPLITTER Ot R00.2 PALPITATIONS 12/13/2016 BAIMA, JAYLEN L HAND SPLITTER Ot R06.09 OTHER FORMS OF DYSPNEA 12/13/2016 BAIMA, JAYLEN L HAND SPLITTER Ot R07.89 OTHER CHEST PAIN 12/13/2016 BAIMA, JAYLEN L HAND SPLITTER Ot I10 ESSENTIAL (PRIMARY) HYPERTENSION 12/13/2016 BAIMA, JAYLEN L HAND SPLITTER Ot R00.2 PALPITATIONS 12/13/2016 BAIMA, JAYLEN L HAND SPLITTER Ot R06.09 OTHER FORMS OF DYSPNEA 12/13/2016 BAIMA, JAYLEN L HAND SPLITTER Ot R07.89 OTHER CHEST PAIN 12/13/2016 BAIMA, JAYLEN L HAND SPLITTER Ot I10 ESSENTIAL (PRIMARY) HYPERTENSION 12/13/2016 BAIMA, JAYLEN L HAND SPLITTER Ot R00.2 PALPITATIONS 12/13/2016 BAIMA, JAYLEN L HAND SPLITTER Ot R06.09 OTHER FORMS OF DYSPNEA 12/13/2016 BAIMA, JAYLEN L HAND SPLITTER Ot R07.89 OTHER CHEST PAIN 12/15/2016 BAIMA, JAYLEN L HAND SPLITTER Ot I10 ESSENTIAL (PRIMARY) HYPERTENSION 12/15/2016 BAIMA, JAYLEN L HAND SPLITTER Ot R00.2 PALPITATIONS 12/15/2016 BAIMA, JAYLEN L HAND SPLITTER Ot R06.09 OTHER FORMS OF DYSPNEA 12/15/2016 BAIMA, JAYLEN L HAND SPLITTER Ot R07.89 OTHER CHEST PAIN 12/17/2016 BAIMA, JAYLEN L HAND SPLITTER Ot I10 ESSENTIAL (PRIMARY) HYPERTENSION 12/17/2016 BAIMA, JAYLEN L HAND SPLITTER Ot R00.2 PALPITATIONS 12/17/2016 BAIMA, JAYLEN L HAND SPLITTER Ot R06.09 OTHER FORMS OF DYSPNEA 12/17/2016 BAIMA, JAYLEN L HAND SPLITTER Ot R07.89 OTHER CHEST PAIN 01/02/2017 BAIMA, JAYLEN L HAND SPLITTER Ot I10 ESSENTIAL (PRIMARY) HYPERTENSION 01/02/2017 BAIMA, JAYLEN L HAND SPLITTER Ot R00.2 PALPITATIONS 01/02/2017 BAIMA, JAYLEN L HAND SPLITTER Ot R06.09 OTHER FORMS OF DYSPNEA 01/02/2017 BAIMA, JAYLEN L HAND SPLITTER Ot R07.89 OTHER CHEST PAIN 01/10/2017 BAIMA, JAYLEN L HAND SPLITTER Ot I10 ESSENTIAL (PRIMARY) HYPERTENSION 01/10/2017 BAIMA, JAYLEN L HAND SPLITTER Ot R00.2 PALPITATIONS 01/10/2017 BAIMA, JAYLEN L HAND SPLITTER Ot R06.09 OTHER FORMS OF DYSPNEA 01/10/2017 BAIMA, JAYLEN L HAND SPLITTER Ot R07.89 OTHER CHEST PAIN 01/14/2018 PARMJIT GARCIA [employer]EST PATROLMAN Ot N10 ACUTE PYELONEPHRITIS 01/14/2018 PARMJIT GARCIA FOREST PATROLMAN Ot R11.0 NAUSEA 01/23/2018 PARMJIT GARCIA FOREST PATROLMAN Ot N10 ACUTE PYELONEPHRITIS 01/23/2018 PARMJIT GARCIA FOREST PATROLMAN Ot R11.0 NAUSEA 02/01/2018 MAUREEN SAUCEDO DO S Ot E11.9 TYPE 2 DIABETES MELLITUS WITHOUT COMPLIC 02/01/2018 MAUREEN SAUCEDO DO S Ot E89.0 POSTPROCEDURAL HYPOTHYROIDISM 02/01/2018 MOIRA SAUCEDO DOLINE S Ot I10 ESSENTIAL (PRIMARY) HYPERTENSION 02/01/2018 MAUREEN SAUCEDO DO S Ot I25.10 ATHSCL HEART DISEASE OF [place] CORONARY 02/01/2018 MAUREEN SAUCEDO DO S Ot I25.2 OLD MYOCARDIAL INFARCTION 02/01/2018 MAUREEN SAUCEDO DO Ot I34.1 NONRHEUMATIC MITRAL (VALVE) PROLAPSE 02/01/2018 MAUREEN SAUCEDO DO Ot J18.9 PNEUMONIA, UNSPECIFIED ORGANISM 02/01/2018 MAUREEN SAUCEDO DO S Ot K21.9 GASTRO-ESOPHAGEAL REFLUX DISEASE WITHOUT 02/01/2018 MAUREEN SAUCEDO DO S Ot K44.9 DIAPHRAGMATIC HERNIA WITHOUT OBSTRUCTION 02/01/2018 MAUREEN SAUCEDO DO S Ot K50.90 CROHN'S DISEASE, UNSPECIFIED, WITHOUT CO 02/01/2018 MAUREEN SAUCEDO DO S Ot K57.90 DVRTCLOS OF INTEST, PART UNSP, W/O PERF 02/01/2018 MAUREEN SAUCEDO DO Ot K58.9 IRRITABLE BOWEL SYNDROME WITHOUT DIARRHE 02/01/2018 MAUREEN SAUCEDO DO S Ot K59.00 CONSTIPATION, UNSPECIFIED 02/01/2018 MAUREEN SAUCEDO DO S Ot L93.0 DISCOID LUPUS ERYTHEMATOSUS 02/01/2018 MAUREEN SAUCEDO DO S Ot M19.91 PRIMARY OSTEOARTHRITIS, UNSPECIFIED SITE 02/01/2018 MAUREEN SAUCEDO DO S Ot 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 02/01/2018 MAUREEN SAUCEDO DO S Ot R33.9 RETENTION OF URINE, UNSPECIFIED 02/01/2018 MAUREEN SAUCEDO DO S Ot Z86.010 PERSONAL HISTORY OF COLONIC POLYPS 02/01/2018 MAUREEN SAUCEDO DO Ot Z87.11 PERSONAL HISTORY OF PEPTIC ULCER DISEASE 02/01/2018 MAUREEN SAUCEDO DO S Ot Z87.440 PERSONAL HISTORY OF URINARY (TRACT) INFE 02/01/2018 MAUREEN SAUCEDO DO S Ot Z87.442 PERSONAL HISTORY OF URINARY CALCULI 02/01/2018 MAUREEN SAUCEDO DO S Ot Z90.710 ACQUIRED ABSENCE OF BOTH CERVIX AND UTER 02/25/2018 MAUREEN SAUCEDO DO Ot J18.9 PNEUMONIA, UNSPECIFIED ORGANISM 02/25/2018 MAUREEN SAUCEDO DO Ot J18.9 PNEUMONIA, UNSPECIFIED ORGANISM 02/27/2018 MAUREEN SAUCEDO DO Ot J18.9 PNEUMONIA, UNSPECIFIED ORGANISM 06/17/2018 EVELIN QUIROSSEBASTIAN Robertson APRN Ot R88.8 ABNORMAL FINDINGS IN OTHER BODY FLUIDS A 06/19/2018 ISHAANSANJUANITA APRN Ot R88.8 ABNORMAL FINDINGS IN OTHER BODY FLUIDS A 07/01/2018 ISHAAN SANJUANITASEBASTIAN Robertson APRN Ot R88.8 ABNORMAL FINDINGS IN OTHER BODY FLUIDS A Procedures There is no data. Results Test Result Range Complete blood count (CBC) with automated white blood cell (WBC) differential - 06/16/16 08:50 Blood leukocytes automated count (number/volume) 8.9 10*3/uL 4.3-11.0 Blood erythrocytes automated count (number/volume) 4.26 10*6/uL 4.35-5.85 Venous blood hemoglobin measurement (mass/volume) 13.4 g/dL 11.5-16.0 Blood hematocrit (volume fraction) 39 % 35-52 Automated erythrocyte mean corpuscular volume 93 [foz_us] 80-99 Automated erythrocyte mean corpuscular hemoglobin (mass per erythrocyte) 32 pg 25-34 Automated erythrocyte mean corpuscular hemoglobin concentration measurement ( mass/volume) 34 g/dL 32-36 Automated erythrocyte distribution width ratio 13.6 % 10.0-14.5 Automated blood platelet count (count/volume) 322 10*3/uL 130-400 Automated blood platelet mean volume measurement 9.5 [foz_us] 7.4-10.4 Automated blood neutrophils/100 leukocytes 78 % 42-75 Automated blood lymphocytes/100 leukocytes 15 % 12-44 Blood monocytes/100 leukocytes 7 % 0-12 Automated blood eosinophils/100 leukocytes 1 % 0-10 Automated blood basophils/100 leukocytes 0 % 0-10 Blood neutrophils automated count (number/volume) 6.9 10*3 1.8-7.8 Blood lymphocytes automated count (number/volume) 1.3 10*3 1.0-4.0 Blood monocytes automated count (number/volume) 0.6 10*3 0.0-1.0 Automated eosinophil count 0.0 10*3/uL 0.0-0.3 Automated blood basophil count (count/volume) 0.0 10*3/uL 0.0-0.1 Complete urinalysis with reflex to culture - 06/16/16 08:50 Urine color determination YELLOW NRG Urine clarity determination CLEAR NRG Urine pH measurement by test strip 5 5-9 Specific gravity of urine by test strip 1.025 1.016- 1.022 Urine protein assay by test strip, semi-quantitative NEGATIVE NEGATIVE Urine glucose detection by automated test strip NEGATIVE NEGATIVE Erythrocytes detection in urine sediment by light microscopy NEGATIVE NEGATIVE Urine ketones detection by automated test strip NEGATIVE NEGATIVE Urine nitrite detection by test strip NEGATIVE NEGATIVE Urine total bilirubin detection by test strip NEGATIVE NEGATIVE Urine urobilinogen measurement by automated test strip (mass/volume) NORMAL NORMAL Urine leukocyte esterase detection by dipstick NEGATIVE NEGATIVE Automated urine sediment erythrocyte count by microscopy (number/high power field) NONE NRG Automated urine sediment leukocyte count by microscopy (number/high power field ) [HPF] NRG Bacteria detection in urine sediment by light microscopy MODERATE NRG Squamous epithelial cells detection in urine sediment by light microscopy 10-25 NRG Crystals detection in urine sediment by light microscopy NONE NRG Casts detection in urine sediment by light microscopy NONE NRG Mucus detection in urine sediment by light microscopy SMALL NRG Complete urinalysis with reflex to culture YES [facility] Comprehensive metabolic panel - 06/16/16 08:50 Serum or plasma sodium measurement (moles/volume) 138 mmol/L 135-145 Serum or plasma potassium measurement (moles/volume) 4.2 mmol/L 3.6-5.0 Serum or plasma chloride measurement (moles/volume) 104 mmol/L 98-107 Carbon dioxide 24 mmol/L 21-32 Serum or plasma anion gap determination (moles/volume) 10 mmol/L 5-14 Serum or plasma urea nitrogen measurement (mass/volume) 16 mg/dL 7-18 Serum or plasma creatinine measurement (mass/volume) 1.00 mg/dL 0.60-1.30 Serum or plasma urea nitrogen/creatinine mass ratio 16 NRG Serum or plasma creatinine measurement with calculation of estimated glomerular filtration rate 56 NRG Serum or plasma glucose measurement (mass/volume) 190 mg/dL 70-105 Serum or plasma calcium measurement (mass/volume) 8.9 mg/dL 8.5-10.1 Serum or plasma total bilirubin measurement (mass/volume) 0.4 mg/dL 0.1-1.0 Serum or plasma alkaline phosphatase measurement (enzymatic activity/volume) 73 U/L 40-136 Serum or plasma aspartate aminotransferase measurement (enzymatic activity/ volume) 17 U/L 5-34 Serum or plasma alanine aminotransferase measurement (enzymatic activity/volume ) 25 U/L 0-55 Serum or plasma protein measurement (mass/volume) 7.3 g/dL 6.4-8.2 Serum or plasma albumin measurement (mass/volume) 4.3 g/dL 3.2-4.5 Lipase - 06/16/16 08:50 Lipase 51 U/L 8-78 Hemoglobin A1c - 06/16/16 08:50 Hemoglobin A1c 6.0 % 4.5-6.2 Bacterial urine culture - 06/16/16 08:50 URINE CULTURE RESULTS <10,000/ML NRG Rheumatiod Factor, Quantitative - 03/22/17 13:35 Rheumatoid Factor, Quantitative 26 IU/ml 0-30 CCP Antibodies IgG/IgA - 03/22/17 13:35 CCP ANTIBODIES IGG/IGA 6 UNITS 0-19 Complete blood count (CBC) with automated white blood cell (WBC) differential - 01/13/18 14:13 Blood leukocytes automated count (number/volume) 9.8 10*3/uL 4.3-11.0 Blood erythrocytes automated count (number/volume) 4.47 10*6/uL 4.35-5.85 Venous blood hemoglobin measurement (mass/volume) 14.4 g/dL 11.5-16.0 Blood hematocrit (volume fraction) 41 % 35-52 Automated erythrocyte mean corpuscular volume 91 [foz_us] 80-99 Automated erythrocyte mean corpuscular hemoglobin (mass per erythrocyte) 32 pg 25-34 Automated erythrocyte mean corpuscular hemoglobin concentration measurement ( mass/volume) 35 g/dL 32-36 Automated erythrocyte distribution width ratio 13.6 % 10.0-14.5 Automated blood platelet count (count/volume) 357 10*3/uL 130-400 Automated blood platelet mean volume measurement 9.2 [foz_us] 7.4-10.4 Automated blood neutrophils/100 leukocytes 69 % 42-75 Automated blood lymphocytes/100 leukocytes 20 % 12-44 Blood monocytes/100 leukocytes 10 % 0-12 Automated blood eosinophils/100 leukocytes 0 % 0-10 Automated blood basophils/100 leukocytes 0 % 0-10 Blood neutrophils automated count (number/volume) 6.8 10*3 1.8-7.8 Blood lymphocytes automated count (number/volume) 2.0 10*3 1.0-4.0 Blood monocytes automated count (number/volume) 0.9 10*3 0.0-1.0 Automated eosinophil count 0.0 10*3/uL 0.0-0.3 Automated blood basophil count (count/volume) 0.0 10*3/uL 0.0-0.1 Comprehensive metabolic panel - 01/13/18 14:13 Serum or plasma sodium measurement (moles/volume) 136 mmol/L 135-145 Serum or plasma potassium measurement (moles/volume) 4.8 mmol/L 3.6-5.0 Serum or plasma chloride measurement (moles/volume) 103 mmol/L 98-107 Carbon dioxide 21 mmol/L 21-32 Serum or plasma anion gap determination (moles/volume) 12 mmol/L 5-14 Serum or plasma urea nitrogen measurement (mass/volume) 13 mg/dL 7-18 Serum or plasma creatinine measurement (mass/volume) 0.84 mg/dL 0.60-1.30 Serum or plasma urea nitrogen/creatinine mass ratio 15 NRG Serum or plasma creatinine measurement with calculation of estimated glomerular filtration rate > NRG Serum or plasma glucose measurement (mass/volume) 110 mg/dL 70-105 Serum or plasma calcium measurement (mass/volume) 9.5 mg/dL 8.5-10.1 Serum or plasma total bilirubin measurement (mass/volume) 0.3 mg/dL 0.1-1.0 Serum or plasma alkaline phosphatase measurement (enzymatic activity/volume) 74 U/L 40-136 Serum or plasma aspartate aminotransferase measurement (enzymatic activity/ volume) 16 U/L 5-34 Serum or plasma alanine aminotransferase measurement (enzymatic activity/volume ) 23 U/L 0-55 Serum or plasma protein measurement (mass/volume) 8.4 g/dL 6.4-8.2 Serum or plasma albumin measurement (mass/volume) 4.4 g/dL 3.2-4.5 Serum or plasma C reactive protein measurement (mass/volume) - 01/13/18 14:13 Serum or plasma C reactive protein measurement (mass/volume) 3.20 mg /dL 0.00-0.50 Capillary blood glucose measurement by glucometer (mass/volume) - 01/29/18 15: 40 Capillary blood glucose measurement by glucometer (mass/volume) 152 mg/dL 70-110 Bacterial blood culture - 01/29/18 16:00 Bacterial blood culture NG NRG Complete blood count (CBC) with automated white blood cell (WBC) differential - 01/29/18 16:07 Blood leukocytes automated count (number/volume) 9.5 10*3/uL 4.3-11.0 Blood erythrocytes automated count (number/volume) 4.05 10*6/uL 4.35-5.85 Venous blood hemoglobin measurement (mass/volume) 12.9 g/dL 11.5-16.0 Blood hematocrit (volume fraction) 37 % 35-52 Automated erythrocyte mean corpuscular volume 91 [foz_us] 80-99 Automated erythrocyte mean corpuscular hemoglobin (mass per erythrocyte) 32 pg 25-34 Automated erythrocyte mean corpuscular hemoglobin concentration measurement ( mass/volume) 35 g/dL 32-36 Automated erythrocyte distribution width ratio 13.3 % 10.0-14.5 Automated blood platelet count (count/volume) 435 10*3/uL 130-400 Automated blood platelet mean volume measurement 9.0 [foz_us] 7.4-10.4 Automated blood neutrophils/100 leukocytes 68 % 42-75 Automated blood lymphocytes/100 leukocytes 23 % 12-44 Blood monocytes/100 leukocytes 8 % 0-12 Automated blood eosinophils/100 leukocytes 0 % 0-10 Automated blood basophils/100 leukocytes 0 % 0-10 Blood neutrophils automated count (number/volume) 6.4 10*3 1.8-7.8 Blood lymphocytes automated count (number/volume) 2.2 10*3 1.0-4.0 Blood monocytes automated count (number/volume) 0.8 10*3 0.0-1.0 Automated eosinophil count 0.0 10*3/uL 0.0-0.3 Automated blood basophil count (count/volume) 0.0 10*3/uL 0.0-0.1 Whole blood basic metabolic panel - 01/29/18 16:07 Serum or plasma sodium measurement (moles/volume) 135 mmol/L 135-145 Serum or plasma potassium measurement (moles/volume) 4.4 mmol/L 3.6-5.0 Serum or plasma chloride measurement (moles/volume) 102 mmol/L 98-107 Carbon dioxide 22 mmol/L 21-32 Serum or plasma anion gap determination (moles/volume) 11 mmol/L 5-14 Serum or plasma urea nitrogen measurement (mass/volume) 12 mg/dL 7-18 Serum or plasma creatinine measurement (mass/volume) 0.84 mg/dL 0.60-1.30 Serum or plasma urea nitrogen/creatinine mass ratio 14 NRG Serum or plasma creatinine measurement with calculation of estimated glomerular filtration rate > NRG Serum or plasma glucose measurement (mass/volume) 134 mg/dL 70-105 Serum or plasma calcium measurement (mass/volume) 9.4 mg/dL 8.5-10.1 Bacterial blood culture - 01/29/18 16:07 Bacterial blood culture NG NRG Capillary blood glucose measurement by glucometer (mass/volume) - 01/29/18 20: 49 Capillary blood glucose measurement by glucometer (mass/volume) 186 mg/dL 70-110 Automated blood complete blood count (hemogram) panel - 01/30/18 05:10 Blood leukocytes automated count (number/volume) 8.5 10*3/uL 4.3-11.0 Blood erythrocytes automated count (number/volume) 3.75 10*6/uL 4.35-5.85 Venous blood hemoglobin measurement (mass/volume) 11.8 g/dL 11.5-16.0 Blood hematocrit (volume fraction) 35 % 35-52 Automated erythrocyte mean corpuscular volume 92 [foz_us] 80-99 Automated erythrocyte mean corpuscular hemoglobin (mass per erythrocyte) 31 pg 25-34 Automated erythrocyte mean corpuscular hemoglobin concentration measurement ( mass/volume) 34 g/dL 32-36 Automated erythrocyte distribution width ratio 13.4 % 10.0-14.5 Automated blood platelet count (count/volume) 404 10*3/uL 130-400 Automated blood platelet mean volume measurement 8.9 [foz_us] 7.4-10.4 Comprehensive metabolic panel - 01/30/18 05:10 Serum or plasma sodium measurement (moles/volume) 136 mmol/L 135-145 Serum or plasma potassium measurement (moles/volume) 4.1 mmol/L 3.6-5.0 Serum or plasma chloride measurement (moles/volume) 102 mmol/L 98-107 Carbon dioxide 22 mmol/L 21-32 Serum or plasma anion gap determination (moles/volume) 12 mmol/L 5-14 Serum or plasma urea nitrogen measurement (mass/volume) 11 mg/dL 7-18 Serum or plasma creatinine measurement (mass/volume) 0.84 mg/dL 0.60-1.30 Serum or plasma urea nitrogen/creatinine mass ratio 13 NRG Serum or plasma creatinine measurement with calculation of estimated glomerular filtration rate > NRG Serum or plasma glucose measurement (mass/volume) 135 mg/dL 70-105 Serum or plasma calcium measurement (mass/volume) 8.8 mg/dL 8.5-10.1 Serum or plasma total bilirubin measurement (mass/volume) 0.3 mg/dL 0.1-1.0 Serum or plasma alkaline phosphatase measurement (enzymatic activity/volume) 61 U/L 40-136 Serum or plasma aspartate aminotransferase measurement (enzymatic activity/ volume) 15 U/L 5-34 Serum or plasma alanine aminotransferase measurement (enzymatic activity/volume ) 13 U/L 0-55 Serum or plasma protein measurement (mass/volume) 6.8 g/dL 6.4-8.2 Serum or plasma albumin measurement (mass/volume) 3.6 g/dL 3.2-4.5 Capillary blood glucose measurement by glucometer (mass/volume) - 01/30/18 06: 43 Capillary blood glucose measurement by glucometer (mass/volume) 134 mg/dL 70-110 Capillary blood glucose measurement by glucometer (mass/volume) - 01/30/18 09: 29 Capillary blood glucose measurement by glucometer (mass/volume) 195 mg/dL 70-110 Capillary blood glucose measurement by glucometer (mass/volume) - 01/30/18 15: 40 Capillary blood glucose measurement by glucometer (mass/volume) 196 mg/dL 70-110 Capillary blood glucose measurement by glucometer (mass/volume) - 01/30/18 21: 16 Capillary blood glucose measurement by glucometer (mass/volume) 229 mg/dL 70-110 Capillary blood glucose measurement by glucometer (mass/volume) - 01/31/18 05: 25 Capillary blood glucose measurement by glucometer (mass/volume) 132 mg/dL 70-110 Capillary blood glucose measurement by glucometer (mass/volume) - 01/31/18 10: 46 Capillary blood glucose measurement by glucometer (mass/volume) 162 mg/dL 70-110 Capillary blood glucose measurement by glucometer (mass/volume) - 01/31/18 15: 47 Capillary blood glucose measurement by glucometer (mass/volume) 187 mg/dL 70-110 Capillary blood glucose measurement by glucometer (mass/volume) - 01/31/18 21: 09 Capillary blood glucose measurement by glucometer (mass/volume) 184 mg/dL 70-110 Capillary blood glucose measurement by glucometer (mass/volume) - 02/01/18 05: 14 Capillary blood glucose measurement by glucometer (mass/volume) 164 mg/dL 70-110 Capillary blood glucose measurement by glucometer (mass/volume) - 02/01/18 11: 24 Capillary blood glucose measurement by glucometer (mass/volume) 198 mg/dL 70-110 Cerebrospinal fluid cell count - 06/13/18 11:10 Cerebrospinal fluid appearance description CLEAR NRG Cerebrospinal fluid color identification COLORLESS NRG Cerebrospinal fluid leukocytes count (number/volume) 1.1 % 0-5 Cerebrospinal fluid erythrocytes count (number/volume) 12.2 % 0-0 Manual cerebrospinal fluid lymphocytes/100 leukocytes TNP NRG Manual cerebrospinal fluid mononuclear cells/100 leukocytes TNP NRG Manual cerebrospinal fluid polymorphonuclear cells/100 leukocytes TNP NRG Cerebrospinal fluid cell count on specimen from last tube collected 3 NRG Cerebrospinal fluid glucose measurement (mass/volume) - 06/13/18 11:10 Cerebrospinal fluid glucose measurement (mass/volume) 96 mg/dL 50-80 Cerebrospinal fluid protein measurement (mass/volume) - 06/13/18 11:10 Cerebrospinal fluid protein measurement (mass/volume) 28 mg/dL 15-40 Gram stain microscopy - 06/13/18 11:10 Gram stain microscopy No bacteria seen NRG Bacterial cerebrospinal fluid culture - 06/13/18 11:10 Bacterial cerebrospinal fluid culture NG NRG C FUNGUS SPUTUM FLUID TISSUE - 06/13/18 11:10 C FUNGUS SPUTUM FLUID TISSUE NG NRG Cerebrospinal fluid microscopic examination by Adela ink prep - 06/13/18 11:10 AFB CULT T STAIN TISSUE/FLUID - 06/13/18 11:10 QUANTITY OF GROWTH . NRG AFB CULT T STAIN TISSUE/FLUID SEE COMMEN NRG Cerebrospinal fluid Cryptococcus antigen detection - 06/13/18 11:10 Cerebrospinal fluid Cryptococcus antigen detection Negative Negative Encounters ACCT No. Visit Date/Time Discharge Status Pt. Type Provider Facility Loc./Unit Complaint [id number] 06/13/2018 09:55:00 06/13/2018 23:59:59 CLS Outpatient SANJUANITA QUIROS APRN [facility] RAD RULE OUT MENINGITIS R88.8 [id number] 02/27/2018 11:04:00 02/27/2018 23:59:59 CLS Outpatient MAUREEN SAUCEDO DO S [facility] RAD PNEUMONIA [id number] 02/25/2018 16:10:00 02/25/2018 23:59:59 CLS Outpatient MAUREEN SAUCEDO DO S [facility] RAD COUGH,RIGHT-SIDED PAIN [id number] 01/29/2018 14:30:00 02/01/2018 11:55:00 DIS Inpatient MOIRA SAUCEDO DOLINE S [facility] 4TH PNUEMONIA [id number] 01/13/2018 14:01:00 01/13/2018 23:59:59 CLS Outpatient PARMJIT GARCIA APRN [facility] LAB R FLANK PAIN,NAUSEA, FEVER,ACUTE PYELONEPHRITIS [id number] 12/14/2016 14:35:00 12/14/2016 23:59:59 CLS Outpatient JAYLEN TORRES [facility] CARD R07.89,R06.09,I10 [id number] 12/12/2016 12:27:00 12/12/2016 23:59:59 CLS Outpatient JAYLEN TORRES [facility] CARD R07.89,R06.09 [id number] 10/16/2016 11:52:00 10/16/2016 23:59:59 CLS Outpatient MARISSA PEPPER MAUREEN S [facility] RAD DYSPNEA [id number] 06/16/2016 08:37:00 06/16/2016 10:08:00 DIS Emergency KAROLINA TESHA [facility] ER RIGHT SIDE PAIN [id number] 05/25/2016 15:41:00 05/25/2016 23:59:59 CLS Outpatient MARISSA DO MAUREEN S [facility] RAD HYPOTHYROIDISM, DYSPHAGIA,THYROID GOITER [id number] 05/19/2016 14:45:00 05/19/2016 23:59:59 CLS Outpatient MARISSA MOIRA PEPPERLINE S [facility] RAD ABD PAIN [id number] 11/26/2015 15:55:00 11/26/2015 23:59:59 CLS Outpatient MOIRA SAUCEDO DOLINE S [facility] RAD RT CHEST PAIN, DYSPNEA [id number] 11/23/2015 15:38:00 11/23/2015 23:59:59 CLS Outpatient SHANNONISMAEL MOIRA PEPPERLINE S [facility] RAD RT CHEST PAIN, DYSPNEA [id number] 11/04/2015 19:31:00 11/05/2015 19:05:00 DIS Outpatient MOIRA SAUCEDO DOLINE S [facility] SDC INTRACTABLE ABDOMINAL PAIN [id number] 10/18/2015 10:31:00 10/18/2015 23:59:59 CLS Outpatient MALINDA HARRISON Nighat LEWIS [facility] RAD CHEST CONGESTION, COUGH [id number] 09/22/2015 11:50:00 09/22/2015 23:59:59 CLS Outpatient MOIRA SAUCEDO DOLINE S [facility] RAD RIGHT UPPER QUAD PAIN,BILAT FLANK PAIN [id number] 06/22/2015 05:55:00 06/22/2015 12:37:00 DIS Outpatient ALO JACKSON FACC, KIRK RIOS CCDS [facility] CATH CHEST PAIN, ABNORMAL EKG, DYSPNEA [id number] 05/22/2014 21:25:00 05/27/2014 11:57:00 DIS Inpatient MOIRA SAUCEDO DOLINE S [facility] SURGICAL ABD PAIN; COLITIS, EXACERBATION OF CROHN'S [id number] 04/23/2014 15:47:00 04/23/2014 23:59:59 CLS Outpatient JACEY SPANGLER [facility] RAD ABD PAIN [id number] 11/08/2013 20:08:00 11/14/2013 12:55:00 DIS Inpatient MOIRA SAUCEDO DOLINE S [facility] 4TH INTRACTABLE NAUSEA AND ABD PAIN [id number] 10/14/2013 08:04:00 10/14/2013 23:59:59 CLS Outpatient ALO JACKSON FACC, KIRK RIOS CCDS [facility] RAD ABNORMAL EKG, CHEST PAIN [id number] 10/13/2013 11:14:00 10/13/2013 23:59:59 CLS Outpatient ALO JACKSON FACC, KIRK RIOS CCDS [facility] CARD CP,ABNORMAL EKG [id number] 09/25/2013 13:46:00 09/25/2013 23:59:59 CLS Outpatient ORENDER DO, MAUREEN S [facility] RAD LEFT KIDNEY LESION [id number] 09/23/2013 10:45:00 09/23/2013 23:59:59 CLS Outpatient ORENDER DO, MAUREEN S [facility] RAD RUQ PAIN [id number] 08/19/2013 17:33:00 08/19/2013 23:59:59 CLS Outpatient ORENDER DO, MAUREEN S [facility] LAB ABDOMINAL PAIN [id number] 08/18/2013 17:12:00 08/18/2013 23:59:59 CLS Outpatient ORENDER DO, MAUREEN S [facility] LAB INCREASED LFT, ABD PAIN [id number] 08/14/2013 09:13:00 08/16/2013 13:40:00 DIS Inpatient ORENDER DO, MAUREEN S [facility] SURGICAL ABD PAIN/ILEUS [id number] 03/27/2013 16:37:00 03/30/2013 15:13:00 DIS Inpatient ORENDER DO, MAUREEN S [facility] SURGICAL ABD PAIN,BOWEL OBSTRUCTION [id number] 03/27/2013 09:42:00 03/27/2013 23:59:59 CLS Outpatient ORENDER DO, MAUREEN S [facility] RAD ABD PAIN, RUQ PAIN , RLQ PAIN [id number] 02/13/2013 15:06:00 02/19/2013 13:05:00 DIS Inpatient BIJALNDER DO, MAUREEN S [facility] SURGICAL ACUTE DIVERTICULITIS [id number] 01/26/2013 15:53:00 01/26/2013 23:59:59 CLS Outpatient [id number] 09/14/2018 09:53:00 ACT Emergency DOV JACKSON, YOMI Pavon [facility] ER SOB/CONCERN ABOUT BLOOD CLOT [id number] 06/21/2012 09:56:00 Document Registration [id number] 01/28/2018 12:17:00 01/28/2018 23:59:00 DIS Outpatient Maureen Saucedo [id number] 03/22/2017 13:32:00 03/22/2017 23:59:00 DIS Outpatient Melo Bocanegra 03/201808/14/2018 14:41:53 08/14/2018 23:59:59 CLS Outpatient Maureen Saucedo 10/201703/15/2017 10:12:09 03/15/2017 23:59:59 CLS Outpatient Maureen Saucedo
[2018-09-14 10:44] LABS: BASOPHILS % (AUTO) 0 % (0-10); EOSINOPHILS % (AUTO) 1 % (0-10); HEMATOCRIT 38 % (35-52); HEMOGLOBIN 13.3 G/DL (11.5-16.0); LYMPHOCYTES # (AUTO) 1.6 X 10^3 (1.0-4.0); LYMPHOCYTES % (AUTO) 21 % (12-44); MEAN CORPUSCULAR HEMOGLOBIN 32 PG (25-34); MEAN CORPUSCULAR HGB CONC 35 G/DL (32-36); MEAN CORPUSCULAR VOLUME 92 FL (80-99); MEAN PLATELET VOLUME 9.3 FL (7.4-10.4); MONOCYTES # (AUTO) 0.4 X 10^3 (0.0-1.0); MONOCYTES % (AUTO) 5 % (0-12); NEUTROPHILS # (AUTO) 5.6 X 10^3 (1.8-7.8); NEUTROPHILS % (AUTO) 73 % (42-75); PLATELET COUNT 344 10^3/uL (130-400); RED CELL DISTRIBUTION WIDTH 14.3 % (10.0-14.5); WHITE BLOOD COUNT 7.7 10^3/uL (4.3-11.0)
[2018-09-14 10:52] LABS: PROTHROMBIN TIME PATIENT 12.6 SEC (12.2-14.7)
[2018-09-14 11:00] LABS: ALANINE AMINOTRANSFERASE 18 U/L (0-55); ALBUMIN 4.3 GM/DL (3.2-4.5); ALKALINE PHOSPHATASE 73 U/L (40-136); BILIRUBIN,TOTAL 0.2 MG/DL (0.1-1.0); BUN/CREATININE RATIO 15; CARBON DIOXIDE 20 MMOL/L (21-32); CHLORIDE 101 MMOL/L (98-107); GFR ESTIMATED > 60; GLUCOSE 210 MG/DL (70-105); MAGNESIUM 2.1 MG/DL (1.8-2.4); POTASSIUM 4.2 MMOL/L (3.6-5.0); SODIUM 135 MMOL/L (135-145); TOTAL PROTEIN 7.7 GM/DL (6.4-8.2)
--- NOTE | 2018-09-14 11:32 | Diagnostic Imaging Report ---
INDICATION: Shortness of air. Time of exam: 1100 a.m. Correlation is made with prior study of 02/25/2018. Heart size normal. There is some minimal residual density in the right base on today's study. Left lung fairly clear. There is no effusion or pneumothorax seen. IMPRESSION: There is some density in the right mid to lower lung field, much less prominent than the chest radiograph from 02/25/2018. This may represent an area of pneumonia. Continued followup to confirm clearing is recommended. Dictated by: Dictated on workstation # [id number]
--- NOTE | 2018-09-14 12:39 | ED Respiratory ---
General Chief Complaint: Chest Pain Stated Complaint: SOB/CONCERN ABOUT BLOOD CLOT Nursing Triage Note: PT CO OF CHEST PAIN STARTED LAST PM RATES CRAMPING IRRITATING PAIN 10/13. HAS RECENT HX OF FUNGAL PNEM. PT STATES NOT HEART PAIN. HAD SOA LAST EVENING Source: patient Exam Limitations: no limitations History of Present Illness Date Seen by Provider: Sep 14, 2018 Time Seen by Provider: 12:33 Initial Comments This 59-year-old white female presents with a complaint of chest discomfort that is been intermittently present for the last several days. The patient has a history of a chronic fungal infection (coccidiomycosis) for which she is taking Diflucan. The patient has had similar episodes of chest discomfort in the past from this disease process. Patient denies diaphoresis, nausea, fever or chill. Allergies and Home Medications Allergies Coded Allergies: Penicillins (Verified Allergy, Unknown, 11/08/13) clarithromycin (Verified Allergy, Unknown, 01/30/18) Patient as tolerated azithromycin gluten (Verified Allergy, Unknown, 11/10/13) metoclopramide (Unverified Allergy, Unknown, 11/03/15) piroxicam (Verified Allergy, Unknown, Pt has received Ketorolac w/o issue , 01/29/18) sulfacetamide sodium (Verified Allergy, Unknown, 11/08/13) Home Medications Albuterol Sulfate 18 Gm Hfa.aer.ad, 2 PUFF INH Q4H PRN for SHORTNESS OF BREATH, (Reported) Albuterol Sulfate 2.5 Mg/3 Ml Vial.neb, 2.5 MG NEB Q4H PRN for SHORTNESS OF BREATH, (Reported) Amlodipine Besylate 5 Mg Tablet, 5 MG PO BID, (Reported) Azithromycin 250 Mg Tablet, PO UD, (Reported) 5 DAY SUPPLY FILLED 01-28-18 Bisoprolol Fumarate 10 Mg Tablet, 10 MG PO BID, (Reported) Cefdinir 300 Mg Capsule, 300 MG PO BID Prescribed by: REID ANN on 02/01/18 1109 Cholecalciferol (Vitamin D3) 2,000 Unit Capsule, 2,000 UNIT PO DAILY, (Reported) Cyanocobalamin 1,000 Mcg/Ml Inj, 1,000 MCG IM EVERY 2 WEEKS, (Reported) Docusate Sodium 100 Mg Capsule, 200 MG PO BID, (Reported) Duloxetine HCl 60 Mg Capsule.dr, 60 MG PO HS, (Reported) Ergocalciferol (Vitamin D2) 50,000 Unit Capsule, 50,000 UNITS PO Sa, (Reported) Estradiol 1 Each Patch.tdsw, 1 PATCH TD EVERY 3 DAYS, (Reported) Fexofenadine HCl 180 Mg Tablet, 180 MG PO DAILY PRN for ALLERGIES, (Reported) Gabapentin 300 Mg Capsule, 300 MG PO HS, (Reported) Hyoscyamine Sulfate 0.125 Mg Tab.subl, 0.125 MG PO Q6H PRN for SPASMS, (Reported ) Levothyroxine Sodium 75 Mcg Tablet, 75 MCG PO DAILY, (Reported) Liothyronine Sodium 5 Mcg Tablet, 5 MCG PO DAILY, (Reported) Mesalamine 250 Mg Capsule.er, 250 MG PO DAILY, (Reported) Pantoprazole Sodium 40 Mg Tablet.dr, 40 MG PO BID, (Reported) Sennosides/Docusate Sodium 1 Each Tablet, 2 TAB PO BID PRN for CONSTIPATION-5TH LINE, (Reported) Sitagliptin Phosphate 100 Mg Tablet, 100 MG PO DAILY, (Reported) Patient Home Medication List Home Medication List Reviewed: Yes Review of Systems Review of Systems Constitutional: No chills, No diaphoresis EENTM: No hearing loss Respiratory: see HPI, cough, short of breath Cardiovascular: see HPI, chest pain Gastrointestinal: No abdominal pain, No diarrhea, No nausea, No vomiting Genitourinary: no symptoms reported : No Musculoskeletal: No back pain Skin: No rash Psychiatric/Neurological: No Symptoms Reported Hematologic/Lymphatic: No Symptoms Reported Immunological/Allergic: no symptoms reported Past Oojsdrg-Kenyni-Wugjai Hx Past Med/Social Hx: Reviewed Nursing Past Med/Soc Hx Patient Social History Recent Foreign Travel: No Contact w/Someone Who Travel: No Recent Infectious Disease Expo: No Recent Hopitalizations: No Immunizations Up To Date Tetanus Booster (TDap): Less than 5yrs PED Vaccines UTD: Yes Date of Pneumonia Vaccine: Apr 11, 2012 Date of Influenza Vaccine: Jun 15, 2016 Seasonal Allergies Seasonal Allergies: No Past Medical History Surgeries: Yes Appendectomy, Breast, Cardiac, Gallbladder, Hysterectomy, Oophorectomy, Orthopedic, Thyroidectomy, Tonsillectomy Respiratory: Yes Asthma Currently Using CPAP: No Currently Using BIPAP: No Cardiac: Yes (mitral valve prolapse, heart caths no stents) Coronary Artery Disease, Heart Attack, Valvular Heart Disease Neurological: Yes Reproductive Disorders: Yes (TOTAL HYSTERECTOMY) Female Reproductive Disorders: Menstrual Problems, Endometriosis, Ovarian Cyst 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 Sexually Transmitted Disease: No HIV/AIDS: No Kidney Infection, Kidney Stones, UTI-Chronic Gastrointestinal: Yes (CHRONIC ABDOMINAL PAIN ) Gastroesophageal Reflux, Crohns Disease, Diverticulosis, Polyps, Hiatal Hernia, Ulcer, Gall Bladder Disease, Irritable Bowel Musculoskeletal: Yes (ANKLYLOSING SPONDYLITIS) Degenerate Disk Disease, Arthritis, Chronic Back Pain Endocrine: Yes Hypothyroidsim, Lupus Loss of Vision: Denies Hearing Impairment: Denies Cancer: No Psychosocial: No Integumentary: Yes (STAPH INFECTIONS) Blood Disorders: No Adverse Reaction/Blood Tranf: No Family Medical History Family history: Cardiovascular disease Family history: Diabetes mellitus 03 MOTHER 09 BROTHER Family history: Glaucoma 03 MOTHER Family history: Thyroid disorder 03 MOTHER Heart disease 03 FATHER (AORTIC VALVE REPLACED) Physical Exam Vital Signs - First Documented 09/14/18 10:20 Temp 98.8 Pulse 70 Resp 18 B/P (MAP) 142/78 (99) Pulse Ox 98 Capillary Refill : Less Than 3 Seconds Height: 5'6.00" Weight: 182lbs. 0.0oz. 82.079930yd; 29.5 BMI Method:Stated General Appearance: WD/WN, no apparent distress Eyes: Bilateral Eye Normal Inspection HEENT: normal ENT inspection Neck: normal inspection Respiratory: lungs clear, normal breath sounds, no respiratory distress Cardiovascular: regular rate, rhythm, no murmur Gastrointestinal: normal bowel sounds, non tender Extremities: normal range of motion, non-tender Neurologic/Psychiatric: no motor/sensory deficits, alert, normal mood/affect Skin: normal color, warm/dry Progress/Results/Core Measures Suspected Sepsis Recent Fever Within 48 Hours: No Infection Criteria Present: None New/Unexplained Altered Menta: No Sepsis Screen: No Definite Risk SIRS Temperature:98.8 Pulse: 70 Respiratory Rate: 18 Laboratory Tests 09/14/18 10:30: White Blood Count 7.7 Blood Pressure 142 /78 Mean: 99 Laboratory Tests 09/14/18 10:30: Creatinine 0.80, INR Comment 1.0, Platelet Count 344, Total Bilirubin 0.2 Results/Orders Lab Results Laboratory Tests Test 09/14/18 10:30 09/14/18 10:33 Range/Units White Blood Count 7.7 4.3-11.0 10^3/uL Red Blood Count 4.19 L 4.35-5.85 10^6/uL Hemoglobin 13.3 11.5-16.0 G/DL Hematocrit 38 35-52 % Mean Corpuscular Volume 92 80-99 FL Mean Corpuscular Hemoglobin 32 25-34 PG Mean Corpuscular Hemoglobin Concent 35 32-36 G/DL Red Cell Distribution Width 14.3 10.0-14.5 % Platelet Count 344 130-400 10^3/uL Mean Platelet Volume 9.3 7.4-10.4 FL Neutrophils (%) (Auto) 73 42-75 % Lymphocytes (%) (Auto) 21 12-44 % Monocytes (%) (Auto) 5 0-12 % Eosinophils (%) (Auto) 1 0-10 % Basophils (%) (Auto) 0 0-10 % Neutrophils # (Auto) 5.6 1.8-7.8 X 10^3 Lymphocytes # (Auto) 1.6 1.0-4.0 X 10^3 Monocytes # (Auto) 0.4 0.0-1.0 X 10^3 Eosinophils # (Auto) 0.0 0.0-0.3 10^3/uL Basophils # (Auto) 0.0 0.0-0.1 10^3/uL Prothrombin Time 12.6 12.2-14.7 SEC INR Comment 1.0 0.8-1.4 Sodium Level 135 135-145 MMOL/L Potassium Level 4.2 3.6-5.0 MMOL/L Chloride Level 101 98-107 MMOL/L Carbon Dioxide Level 20 L 21-32 MMOL/L Anion Gap 14 5-14 MMOL/L Blood Urea Nitrogen 12 7-18 MG/DL Creatinine 0.80 0.60-1.30 MG/DL Estimat Glomerular Filtration Rate > 60 BUN/Creatinine Ratio 15 Glucose Level 210 H 70-105 MG/DL Calcium Level 9.0 8.5-10.1 MG/DL Corrected Calcium 8.8 8.5-10.1 MG/DL Magnesium Level 2.1 1.8-2.4 MG/DL Total Bilirubin 0.2 0.1-1.0 MG/DL Aspartate Amino Transf (AST/SGOT) 21 5-34 U/L Alanine Aminotransferase (ALT/SGPT) 18 0-55 U/L Alkaline Phosphatase 73 40-136 U/L Myoglobin 22.0 10.0-92.0 NG/ML Troponin I < 0.028 <0.028 NG/ML Total Protein 7.7 6.4-8.2 GM/DL Albumin 4.3 3.2-4.5 GM/DL D-Dimer 0.38 0.00-0.49 UG/ML B-Type Natriuretic Peptide 63.3 <100.0 PG/ML My Orders Orders - DOV, YOMI Pavon MD Ekg Tracing (09/14/18 10:33) Cbc With Automated Diff (09/14/18 10:36) Magnesium (09/14/18 10:36) Cardiac Profile 1 (09/14/18 10:36) Comprehensive Metabolic Panel (09/14/18 10:36) Myoglobin Serum (09/14/18 10:36) Protime With Inr (09/14/18 10:36) Chest Pa/Lat (2 View) (09/14/18 10:41) Fibrin Degradation Products (09/14/18 11:30) BNP (09/14/18 11:30) Vital Signs/I&O 09/14/18 10:20 Temp 98.8 Pulse 70 Resp 18 B/P (MAP) 142/78 (99) Pulse Ox 98 Capillary Refill : Less Than 3 Seconds Blood Pressure Mean: 99 Progress Note : Time: 12:56 Progress Note The patient's evaluation included a normal d-dimer. The patient's CBC was unremarkable. Patient's chest x-ray although representing interval improvement on the right side was still consistent from the radiologist perspective with a pneumonia. I discussed findings with patient and I have called and left a message with Dr. ANN. I gave the patient Levaquin 500 mg daily and asked that she follow-up closely with Dr. Ann on Sunday. She was invited return if any problems or questions. Departure Communication (Admissions) 1 p.m. I called and left a message with Dr. ANN. Impression Primary Impression: Fungal infection Disposition: HOME, SELF-CARE Condition: Unchanged Departure-Patient Inst. Decision time for Depature: 12:59 Referrals: REID ANN DO (PCP/Family) Primary Care Physician Patient Instructions: Chest Pain (DC) Add. Discharge Instructions: Levaquin as prescribed. Close follow-up with Dr. ANN on Sunday. Return if any problems or questions. All discharge instructions reviewed with patient and /or family. Voiced understanding. YOMI MONAE MD Sep 14, 2018 12:39
[2018-09-14 13:15] VITALS: BP 142/78
== END 2018-09-14 13:15 | disposition home or self-care (01) ==
LOC: EDUNIT# 09:51 → ER 09:53
DX: B36.9 Superficial mycosis, unspecified (principal); J45.909 Unspecified asthma, uncomplicated; I25.10 Atherosclerotic heart disease of native coronary artery without angina pectoris; I25.2 Old myocardial infarction; K21.9 Gastro-esophageal reflux disease without esophagitis; E03.9 Hypothyroidism, unspecified; M32.9 Systemic lupus erythematosus, unspecified; Z86.010 Personal history of colon polyps; Z82.49 Family history of ischemic heart disease and other diseases of the circulatory system; Z87.19 Personal history of other diseases of the digestive system; Z87.440 Personal history of urinary (tract) infections; Z87.448 Personal history of other diseases of urinary system; Z95.5 Presence of coronary angioplasty implant and graft; Z88.0 Allergy status to penicillin; Z88.1 Allergy status to other antibiotic agents; Z88.8 Allergy status to other drugs, medicaments and biological substances; Z88.2 Allergy status to sulfonamides; Z79.51 Long term (current) use of inhaled steroids; Z86.19 Personal history of other infectious and parasitic diseases; Z90.49 Acquired absence of other specified parts of digestive tract; Z98.890 Other specified postprocedural states; Z90.89 Acquired absence of other organs; Z90.710 Acquired absence of both cervix and uterus
CPT/HCPCS: 36415; 71046; 80053; 83735; 83874; 83880; 84484; 85025; 85379; 85610; 93005; 93041

== ENCOUNTER → 2019-09-29 | Outpatient (CLI) | payer MEDICARE, OTHER ==
[~2019-09-29] MED LIST changes: -DULO60CA58 PO; +DULO60CA59 PO; +FLUT30CR TP; -FLUT30CR10 TP; -IBUP-2055 PO; +IBUP-2473 PO; +LIOT5TAB10 PO; -LIOT5TAB3 PO; -TRAM50TA2 PO; -TRAZ-189 PO; +TRM50T PO
--- NOTE | 2019-09-29 14:40 | Diagnostic Imaging Report ---
INDICATION: Fall with lateral ankle pain and swelling. TIME OF EXAM: 02:13 p.m. FINDINGS: Three views of the left ankle were obtained. Alignment is normal. Ankle mortise is well maintained. Talar dome is smooth. No fracture or dislocation is seen. There is lateral soft tissue swelling. IMPRESSION: Lateral soft tissue swelling. No acute bony abnormality is detected. Dictated by: Dictated on workstation # [id number]
--- NOTE | 2019-09-29 14:48 | Diagnostic Imaging Report ---
INDICATION: Fall. Time of exam 2:17 PM AP view of the pelvis and 2 views of the left hip were obtained. Femoral acetabular alignment is normal. Femoral head and neck are intact. No fractures are seen. Rami appear to be intact. SI joints and symphysis are not widened. Linear metallic opacities overlie the left SI joint. IMPRESSION: No acute bony abnormalities detected. Report of pelvis/left hip as well as left ankle were called to Lakshmi Mims nurse practitioner by kandi at 2:47 p.m. Dictated by: Dictated on workstation # [id number]
== END ==
LOC: RAD 13:50
PROVIDERS: ATTEND Nurse Practitioner Family
DX: M79.89 Other specified soft tissue disorders (principal); M25.552 Pain in left hip; M25.572 Pain in left ankle and joints of left foot; R10.2 Pelvic and perineal pain; W19.XXXA Unspecified fall, initial encounter
CPT/HCPCS: 73610

== ENCOUNTER → 2020-02-12 | Outpatient (CLI) | payer MEDICARE, OTHER | LOC: LABNPT 06:34 | PROVIDERS: ATTEND Family Medicine | DX: R50.9 Fever, unspecified (principal); R07.89 Other chest pain; M79.10 Myalgia, unspecified site; Z20.828 Contact with and (suspected) exposure to other viral communicable diseases | CPT/HCPCS: 87635 ==

== ENCOUNTER → 2020-03-12 | Outpatient (CLI) | payer MEDICARE, OTHER ==
[~2020-03-12] MED LIST changes: +IOHEXOL 350 MG/ML 100 ML (OMNIPAQUE 350) VIAL IV ONE; +NS 100 ML (IVPB) BAG IV ONE
--- NOTE | 2020-03-12 09:29 | Diagnostic Imaging Report ---
PROCEDURE: CT chest with contrast only. TECHNIQUE: Multiple contiguous axial images were obtained through the chest after administration of intravenous contrast. Auto Exposure Controls were utilized during the CT exam to meet ALARA standards for radiation dose reduction. INDICATION: No significant adenopathy within the chest. No aneurysmal dilatation of the thoracic aorta. Mild scattered vascular calcifications. The heart is within normal limits in size. No pericardial effusion. No pleural effusion. No pneumothorax. The left lung is clear. A 1.8 x 1.5 cm round pulmonary nodule is noted within the right lower lobe. This is new since November 2015. This was within a region of consolidation on prior CT from 2018. Therefore, exact chronicity of this pulmonary nodule is uncertain. Additional ovoid 1.0 x 0.8 cm pleural-based right middle lobe pulmonary nodule is present. This is in a region of consolidation noted on the prior exam from 2018. Mild scarring and atelectasis within the bilateral lung bases. Diffusely decreased density of the liver. Postsurgical changes noted involving the proximal stomach. Cholecystectomy. Postsurgical changes within the cervicothoracic spine. Stable sclerotic lesion within the right aspect of T12, felt to relate to a bone island. Scattered osseous degenerative changes without acute osseous abnormality. IMPRESSION: Two separate right-sided pulmonary nodules, as described above, including a 1.8 x 1.5 cm solid pulmonary nodule. These pulmonary nodules are within regions of dense consolidation on prior CT from 2018, and would have been obscured at that time. Etiology of this pulmonary nodule is uncertain. This may be on an infectious or inflammatory process. However, malignancy needs to be excluded. PET/CT is recommended for further evaluation. Fatty infiltration of the liver. Additional findings as above. Dictated by: Dictated on workstation # [id number]
== END ==
LOC: RAD 06:56
PROVIDERS: ATTEND Family Medicine
DX: B45.0 Pulmonary cryptococcosis (principal); R91.8 Other nonspecific abnormal finding of lung field
CPT/HCPCS: 71260

== ENCOUNTER → 2020-04-02 | Outpatient (CLI) | payer MEDICARE, OTHER ==
[~2020-04-02] MED LIST changes: -IOHEXOL 350 MG/ML 100 ML (OMNIPAQUE 350) VIAL IV ONE; -NS 100 ML (IVPB) BAG IV ONE
== END ==
LOC: CARD 12:00
PROVIDERS: ATTEND Family Medicine
DX: R01.1 Cardiac murmur, unspecified (principal)
CPT/HCPCS: 93306

== ENCOUNTER → 2020-09-03 | Outpatient (CLI) | payer MEDICARE, OTHER ==
[~2020-09-03] MED LIST changes: +AMLO-250 PO; -AMLO5TAB9 PO; +BAMLANIVIMAB (NON FORM) 700 MG in NS (IVPB) 250 ML IV ONE; +EPINEPHrine INJECTION 1 MG/ML AMP IM PRN; -PANT40TA3 PO; +PANT40TA52 PO; +diphenhydrAMINE 50 MG/ML INJ (BENADRYL) IV PRN
[2020-09-03 08:54] VITALS: BP 179/82
[2020-09-03 09:50] VITALS: BP 187/81
== END ==
LOC: INFUSION 08:07
PROVIDERS: ATTEND Family Medicine
DX: U07.1 COVID-19 (principal)

== ENCOUNTER → 2020-10-25 | Outpatient (CLI) | payer MEDICARE, OTHER ==
[~2020-10-25] MED LIST changes: -BAMLANIVIMAB (NON FORM) 700 MG in NS (IVPB) 250 ML IV ONE; -EPINEPHrine INJECTION 1 MG/ML AMP IM PRN; -diphenhydrAMINE 50 MG/ML INJ (BENADRYL) IV PRN
== END ==
LOC: CARD 13:55
PROVIDERS: ATTEND Internal Medicine Cardiovascular Disease
DX: R07.89 Other chest pain (principal)
CPT/HCPCS: 93306

== ENCOUNTER → 2020-10-26 | Outpatient (CLI) | payer MEDICARE, OTHER ==
[~2020-10-26] VITALS: Ht 167 cm; Wt 84.0 kg
[~2020-10-26] MED LIST changes: +REGADENOSON 0.4 MG/5 ML SYR (LEXISCAN) IV ONE
[2020-10-26] MEDS: CATHETER FLUSH 10 ML SYR IV PRN ×2 (07:31→09:17)
[2020-10-26 09:14] VITALS: BP 153/72
== END ==
LOC: CARD 07:30
PROVIDERS: ATTEND Internal Medicine Cardiovascular Disease
DX: R07.89 Other chest pain (principal)
CPT/HCPCS: 78452; 93017; A9502

== ENCOUNTER → 2020-10-28 | Outpatient (CLI) | payer MEDICARE, OTHER ==
[~2020-10-28] MED LIST changes: -REGADENOSON 0.4 MG/5 ML SYR (LEXISCAN) IV ONE
--- NOTE | 2020-10-28 14:00 | Diagnostic Imaging Report ---
INDICATION: Right hip pain COMPARISON: None. FINDINGS: 2 views of the right were obtained and show no fractures, dislocations, or other acute bony abnormalities. Joint spaces are well maintained throughout. The soft tissues appear unremarkable. No radiopaque foreign bodies are identified. IMPRESSION: Unremarkable radiographic exam of the right. Dictated by: Dictated on workstation # [id number]
== END ==
LOC: RAD 13:36
PROVIDERS: ATTEND Family Medicine
DX: M25.551 Pain in right hip (principal)
CPT/HCPCS: 73502

== ENCOUNTER → 2020-11-15 | Outpatient (CLI) | payer MEDICARE, OTHER ==
[~2020-11-15] MED LIST changes: +CATHETER FLUSH 10 ML SYR IV PRN; +HOLD METFORMIN - RECEIVED CONTRAST 20 ML VIAL IV SCH; +IOHEXOL 350 MG/ML 100 ML (OMNIPAQUE 350) VIAL IV ONE; +NS 100 ML (IVPB) BAG IV ONE
[2020-11-15 17:06] LABS: CREATININE SERUM 1.03 MG/DL (0.60-1.30)
--- NOTE | 2020-11-15 18:40 | Diagnostic Imaging Report ---
PROCEDURE: CT chest with contrast only. TECHNIQUE: Multiple contiguous axial images were obtained through the chest after administration of intravenous contrast. Auto Exposure Controls were utilized during the CT exam to meet ALARA standards for radiation dose reduction. INDICATION: Dyspnea and pulmonary nodule COMPARISON: 03/12/2020 Dominant nodule in the superior segment of the right lower lobe now measures 1.5 x 1.2 cm compared with 1.8 x 1.5 cm on the previous study. A second nodule along the major fissure just below the mya in the right lung measures 1.0 x 0.7 cm compared with 1.0 x 0.8 cm on the previous study. There is mild surrounding atelectasis and/or scarring as well. No new dominant mass or infiltrate is identified in either lung. There is no significant pleural or pericardial fluid. There is mild hiatal hernia. Left vertebral artery arises directly from the aortic arch. Left lobe of the thyroid gland is small but unchanged. There is hepatic steatosis. Surgical findings are seen in the left hepatogastric ligament. IMPRESSION: Stable to mildly improved right lung nodules without evidence of new abnormality identified in the thorax. Dictated by: Dictated on workstation # [id number]
== END ==
LOC: RAD 17:45
PROVIDERS: ATTEND Family Medicine
DX: B45.0 Pulmonary cryptococcosis (principal); R91.8 Other nonspecific abnormal finding of lung field
CPT/HCPCS: 36415; 71260; 82565; 84520

== ENCOUNTER → 2020-12-30 | Outpatient (CLI) | payer MEDICARE, OTHER ==
[~2020-12-30] MED LIST changes: -CATHETER FLUSH 10 ML SYR IV PRN; -HOLD METFORMIN - RECEIVED CONTRAST 20 ML VIAL IV SCH; -IOHEXOL 350 MG/ML 100 ML (OMNIPAQUE 350) VIAL IV ONE; -NS 100 ML (IVPB) BAG IV ONE
--- NOTE | 2020-12-30 14:25 | Diagnostic Imaging Report ---
PROCEDURE: CT abdomen and pelvis without contrast. TECHNIQUE: Multiple contiguous axial images were obtained through the abdomen and pelvis without the use of intravenous contrast. Auto Exposure Controls were utilized during the CT exam to meet ALARA standards for radiation dose reduction. INDICATION: Pelvic pain and abdominal pain. Comparison is made with prior CT from 05/19/2016. FINDINGS: The lung bases are clear. Liver again demonstrates diffuse low density consistent with hepatic steatosis. No discrete liver mass is detected. Gallbladder surgically absent. No biliary duct dilatation is seen. Pancreas and spleen are unremarkable. No adrenal mass is detected. Multiple surgical clips in the region of the distal esophagus and stomach are noted. No definite renal calculi or hydronephrosis is identified. Aorta is nonaneurysmal. The small and large bowel loops are normal caliber. There is moderate stool in the colon suggesting constipation. No bowel obstruction is seen. There does appear to be some very mild inflammatory stranding adjacent to the sigmoid colon in the lower left pelvis. This may indicate some mild diverticulitis. There is no free fluid or fluid collection. Uterus is surgically absent. Bladder is unremarkable. No definite abdominal or pelvic lymphadenopathy is identified. Postsurgical changes with orthopedic hardware transfixing the left SI joint is noted. IMPRESSION: 1. Hepatic steatosis. 2. Postsurgical changes, as described. 3. Moderate stool suggests constipation. 4. Mild inflammatory stranding adjacent to the sigmoid colon, which may indicate some mild diverticulitis. No abscess formation or bowel obstruction is identified. Dictated by: Dictated on workstation # [id number]
== END ==
LOC: RAD 13:45
PROVIDERS: ATTEND Family Medicine
DX: K76.0 Fatty (change of) liver, not elsewhere classified (principal); K52.9 Noninfective gastroenteritis and colitis, unspecified
CPT/HCPCS: 74176

== ENCOUNTER 2021-01-27 12:27 | Inpatient (IN) | payer MEDICARE, OTHER ==
[~2021-01-27] VITALS: Ht 168 cm; Wt 84.0 kg
[2021-01-27] MEDS ORDERED: PATIENT MAY USE OWN MEDS, ALL PO SCH (12:30)
[2021-01-27] MEDS ORDERED: NS IV 1000 ML 1,000 ML IV SCH (12:30)
[2021-01-27] MEDS ORDERED: PANTOPRAZOLE 40 MG (PROTONIX) VIAL IV NR (12:45)
[2021-01-27] MEDS ORDERED: CATHETER FLUSH 10 ML SYR IV PRN (12:45)
--- NOTE | 2021-01-27 12:46 | History & Physical ---
History of Present Illness History of Present Illness Reason for visit/HPI This is a 65 year old female who had been treated recently outpatient for acute sigmoid diverticulitis. She presented to my office with complaint of worsening abdominal pain for several days. She reports numerous bowel movements--diarrhea--the past 2 days as well as abdominal cramping doubling her over in pain. She had pain in her abdomen on exam just with placing a stethoscope on her abdomen. She will be directly admitted for further evaluation and treatment. Date of Admission Jan 27, 2021 at 12:36 Date Seen by a Provider: Jan 27, 2021 Time Seen by a Provider: 12:40 I consulted on this patient on 01/27/21 12:40 Attending Physician Maureen Saucedo DO Admitting Physician Maureen Saucedo DO Consult Allergies and Home Medications Allergies Coded Allergies: Penicillins (Verified Allergy, Unknown, 11/08/13) clarithromycin (Verified Allergy, Unknown, 01/30/18) Patient as tolerated azithromycin gluten (Verified Allergy, Unknown, 11/10/13) metoclopramide (Unverified Allergy, Unknown, 11/03/15) piroxicam (Verified Allergy, Unknown, Pt has received Ketorolac w/o issue, 01/29/18) sulfacetamide sodium (Verified Allergy, Unknown, 11/08/13) Home Medications Albuterol Sulfate 18 Gm Hfa.aer.ad, 2 PUFF INH Q4H PRN for SHORTNESS OF BREATH, (Reported) Albuterol Sulfate 2.5 Mg/3 Ml Vial.neb, 2.5 MG NEB Q4H PRN for SHORTNESS OF BREATH, (Reported) Amlodipine Besylate 5 Mg Tablet, 5 MG PO BID, (Reported) Azithromycin 250 Mg Tablet, PO UD, (Reported) 5 DAY SUPPLY FILLED 01-28-18 Bisoprolol Fumarate 10 Mg Tablet, 10 MG PO BID, (Reported) Cefdinir 300 Mg Capsule, 300 MG PO BID Prescribed by: MAUREEN SAUCEDO on 02/01/18 1109 Cholecalciferol (Vitamin D3) 2,000 Unit Capsule, 2,000 UNIT PO DAILY, (Reported) Cyanocobalamin 1,000 Mcg/Ml Inj, 1,000 MCG IM EVERY 2 WEEKS, (Reported) Docusate Sodium 100 Mg Capsule, 200 MG PO BID, (Reported) Duloxetine HCl 60 Mg Capsule.dr, 60 MG PO HS, (Reported) Ergocalciferol (Vitamin D2) 50,000 Unit Capsule, 50,000 UNITS PO Sa, (Reported) Estradiol 1 Each Patch.tdsw, 1 PATCH TD EVERY 3 DAYS, (Reported) Fexofenadine HCl 180 Mg Tablet, 180 MG PO DAILY PRN for ALLERGIES, (Reported) Gabapentin 300 Mg Capsule, 300 MG PO HS, (Reported) Hyoscyamine Sulfate 0.125 Mg Tab.subl, 0.125 MG PO Q6H PRN for SPASMS, (Reported) Levothyroxine Sodium 75 Mcg Tablet, 75 MCG PO DAILY, (Reported) Liothyronine Sodium 5 Mcg Tablet, 5 MCG PO DAILY, (Reported) Mesalamine 250 Mg Capsule.er, 250 MG PO DAILY, (Reported) Pantoprazole Sodium 40 Mg Tablet.dr, 40 MG PO BID, (Reported) Sennosides/Docusate Sodium 1 Each Tablet, 2 TAB PO BID PRN for CONSTIPATION-5TH LINE, (Reported) Sitagliptin Phosphate 100 Mg Tablet, 100 MG PO DAILY, (Reported) Patient Home Medication List Home Medication List Reviewed: Yes Past Nkscgob-Rlwoys-Pernzl Hx Past Med/Social Hx: Reviewed Nursing Past Med/Soc Hx Patient Social History Marrital Status: single, Recent Foreign Travel: No Contact w/other who traveled: No Recent Hopitalizations: No Immunizations Up To Date Tetanus Booster (TDap): Less than 5yrs Pediatric: Yes Date of Pneumonia Vaccine: Apr 11, 2012 Date of Influenza Vaccine: Jun 15, 2016 Seasonal Allergies Seasonal Allergies: No Past Medical History Surgeries: Appendectomy, Breast, Cardiac, Gallbladder, Hysterectomy, Oophorectomy, Orthopedic, Thyroidectomy, Tonsillectomy Currently Using CPAP: No Currently Using BIPAP: No Cardiac: Coronary Artery Disease, Heart Attack, Valvular Heart Disease Reproductive: Yes (TOTAL HYSTERECTOMY) Sexually Transmitted Disease: No HIV/AIDS: No Female Reproductive Disorders: Menstrual Problems, Endometriosis, Ovarian Cyst Hysterectomy Genitourinary: Kidney Infection, Kidney Stones, UTI-Chronic Gastrointestinal: Gastroesophageal Reflux, Crohns Disease, Diverticulosis, Polyps, Hiatal Hernia, Ulcer, Gall Bladder Disease, Irritable Bowel Musculoskeletal: Degenerate Disk Disease, Arthritis, Chronic Back Pain Endocrine: Hypothyroidsim, Lupus Loss of Vision: Denies Hearing Impairment: Denies History of Blood Disorders: No Adverse Reaction to Blood Blake: No Family History Family history: Cardiovascular disease Family history: Diabetes mellitus 03 MOTHER 09 BROTHER Family history: Glaucoma 03 MOTHER Family history: Thyroid disorder 03 MOTHER Heart disease 03 FATHER (AORTIC VALVE REPLACED) Review of Systems Constitutional: weakness EENTM: No see HPI, No no symptoms reported, No ear discharge, No hearing loss, No ear pain, No blurred vision, No double vision, No eye pain, No tearing, No vision loss, No dental problems, No hoarseness, No mouth pain, No mouth swelling, No epistaxis, No nose congestion, No nose pain, No throat pain, No throat swelling, No other Respiratory: No no symptoms reported, No see HPI, No cough, No dyspnea on exertion, No hemoptysis, No orthopnea, No phlegm, No short of breath, No stridor, No wheezing, No other Cardiovascular: No no symptoms reported, No see HPI, No chest pain, No edema, No Hx of Intervention, No palpitations, No syncope, No vascular heart diseas, No other Gastrointestinal: abdominal pain, diarrhea, heartburn, loss of appetite, nausea Genitourinary: No no symptoms reported, No see HPI, No decreased output, No discharge, No dysuria, No frequency, No hematuria, No hesitancy, No incontinence, No nocturia, No pain, No other Musculoskeletal: back pain Skin: No no symptoms reported, No see HPI, No change in color, No change in hair/nails, No dryness, No hx of skin cancer, No lesions, No lumps, No pruritus, No rash, No other Psychiatric/Neurological: Weakness Physical Exam Vital Signs Capillary Refill : Height, Weight, BMI Height: 5'6.00" Weight: 182lbs. 0.0oz. 82.789266be; 30.11 BMI Method:Stated General Appearance: Moderate Distress (due to pain) HEENT: Normal ENT Inspection Neck: Supple Respiratory: Lungs Clear Cardiovascular: Regular Rate, Rhythm, Gallop/S4 Gastrointestinal: Soft, Abnormal Bowel Sounds, Guarding, Rebound, Tenderness (diffuse but worse in RLQ/LLQ and RUQ) Rectal: Deferred Back: No CVA Tenderness Extremity: Non Tender, No Calf Tenderness, No Pedal Edema Neurologic/Psychiatric: Alert, Oriented x3 Skin: Warm/Dry Assessment/Plan Assessment and Plan 1. Acute Sigmoid Diverticulitis with Worsening Abdominal Pain--admit for gut rest, IVFs, IV abx, repeat CT abdomen/pelvis, consult surgery, pain control, check CBC, CMP, ESR 2. Hypertension--resume home meds 3. DMII--accuchecks with SSI B 4. GERD--IV protonix Admission Diagnosis Admission Status: Inpatient Order (span 2 midnights) Reason for Inpatient Admission: Will need gut rest, IV abx, IVFs MAUREEN SAUCEDO DO Jan 27, 2021 12:46
[2021-01-27 13:18] LABS: BASOPHILS % (AUTO) 0 % (0-10); EOSINOPHILS % (AUTO) 1 % (0-10); HEMATOCRIT 44 % (35-52); HEMOGLOBIN 14.7 g/dL (11.5-16.0); LYMPHOCYTES # (AUTO) 2.1 10^3/uL (1.0-4.0); LYMPHOCYTES % (AUTO) 30 % (12-44); MEAN CORPUSCULAR HEMOGLOBIN 31 pg (25-34); MEAN CORPUSCULAR HGB CONC 34 g/dL (32-36); MEAN CORPUSCULAR VOLUME 94 fL (80-99); MEAN PLATELET VOLUME 9.3 fL (9.0-12.2); MONOCYTES # (AUTO) 0.6 10^3/uL (0.0-1.0); MONOCYTES % (AUTO) 8 % (0-12); NEUTROPHILS # (AUTO) 4.3 10^3/uL (1.8-7.8); NEUTROPHILS % (AUTO) 61 % (42-75); PLATELET COUNT 262 10^3/uL (130-400); WHITE BLOOD COUNT 7.1 10^3/uL (4.3-11.0)
[2021-01-27 13:20] VITALS: BP 138/65
[2021-01-27] MEDS: ONDANSETRON 4 MG/2 ML (SDV) Z0FRAN IV PRN ×2 (13:24→19:30)
[2021-01-27] MEDS: fentaNYL INJ 100 MCG/2 ML AMP IV PRN ×2 (13:25→16:47)
[2021-01-27] MEDS: ENOXAPARIN 40 MG/0.4 ML (LOVENOX) SYR SC SCH (13:30)
[2021-01-27] MEDS: cefTRIAXone 1,000 MG in WATER (STERILE) FOR INJECTION 10 ML IV SCH (13:32)
[2021-01-27] MEDS: metroNIDAZOLE 500MG/100ML IVPB 100 ML IV SCH ×2 (13:34→21:10)
[2021-01-27 13:40] LABS: ERYTHROCYTE SEDIMENTATION RATE 15 MM/HR (0-30)
[2021-01-27 13:42] LABS: ALANINE AMINOTRANSFERASE 21 U/L (0-55); ALBUMIN 4.1 GM/DL (3.2-4.5); ALKALINE PHOSPHATASE 50 U/L (40-136); AMYLASE 49 U/L (25-125); BILIRUBIN,TOTAL 0.3 MG/DL (0.1-1.0); BUN/CREATININE RATIO 20; CALCIUM 9.2 MG/DL (8.5-10.1); CARBON DIOXIDE 22 MMOL/L (21-32); CHLORIDE 103 MMOL/L (98-107); CREATININE SERUM 0.82 MG/DL (0.60-1.30); GFR ESTIMATED > 60; GLUCOSE 94 MG/DL (70-105); LIPASE 62 U/L (8-78); POTASSIUM 4.3 MMOL/L (3.6-5.0); SODIUM 134 MMOL/L (135-145); TOTAL PROTEIN 8.2 GM/DL (6.4-8.2)
[2021-01-27] MEDS ORDERED: ESTR-44 TD (14:37)
[2021-01-27] MEDS ORDERED: POLY17PO6 PO (14:37)
[2021-01-27] MEDS ORDERED: IBUP-2185 PO (14:37)
[2021-01-27] MEDS ORDERED: CNC1KV IM (14:37)
[2021-01-27] MEDS ORDERED: VALS320T15 PO (14:37)
[2021-01-27] MEDS ORDERED: DOCU100T7 PO (14:37)
[2021-01-27] MEDS ORDERED: LEVO88CA2 PO (14:37)
[2021-01-27] MEDS ORDERED: SENN-145 PO (14:37)
[2021-01-27] MEDS ORDERED: ACHD5005 PO (14:37)
[2021-01-27] MEDS ORDERED: ERGO1250 PO (14:37)
[2021-01-27] MEDS ORDERED: EMPA1TAB PO (14:37)
[2021-01-27] MEDS ORDERED: CHOL500050 PO (14:37)
[2021-01-27] MEDS ORDERED: FEXO180T84 PO (14:37)
[2021-01-27] MEDS ORDERED: GLIP5TAB13 PO (14:37)
--- NOTE | 2021-01-27 15:36 | Consultation - Surgery ---
History of Present Illness History of Present Illness Patient Consulted On(laly/time) 01/27/21 15:36 Date Seen by Provider: Jan 27, 2021 Time Seen by Provider: 15:36 History of Present Illness Consult requested by Dr. Saucedo for diverticulitis Patient is a 65-year-old female who couple weeks ago was treated for acute diverticulitis. Patient states she was feeling better. And then the last couple days she has began having increasing abdominal cramping. Pain is in the left lower quadrant also having some pain in the right upper quadrant. No radiation of the pains. Patient states that nothing only seems to make it better or worse. She states the pain can be severe at times doubling her over. She states she still passing gas but having some diarrhea. Patient is not havin g any nausea or vomiting. She is not having any fever sweats chills shortness of breath or chest pain. Patient states her last colonoscopy was approximately 5 years ago she believes. Patient has CT scan pending. Allergies and Home Medications Allergies Coded Allergies: Penicillins (Verified Allergy, Unknown, 11/08/13) clarithromycin (Verified Allergy, Unknown, 01/30/18) Patient as tolerated azithromycin gluten (Verified Allergy, Unknown, 11/10/13) metoclopramide (Unverified Allergy, Unknown, 11/03/15) piroxicam (Verified Allergy, Unknown, Pt has received Ketorolac w/o issue, 01/29/18) sulfacetamide sodium (Verified Allergy, Unknown, 11/08/13) Home Medications Bisoprolol Fumarate 10 Mg Tablet, 10 MG PO BID, (Reported) Last Action: Reviewed Cholecalciferol (Vitamin D3) 125 Mcg Capsule, 125 MCG PO HS, (Reported) Last Action: Reviewed Cyanocobalamin 1,000 Mcg/Ml Inj, 1,000 MCG IM EVERY 2 MONTHS, (Reported) Last Action: Reviewed Docusate Sodium 100 Mg Tablet, 100 MG PO DAILY, (Reported) Last Action: Reviewed Duloxetine HCl 60 Mg Capsule.dr, 60 MG PO HS, (Reported) Last Action: Reviewed Empagliflozin/Linagliptin 1 Each Tablet, 1 EA PO DAILY, (Reported) Last Action: Reviewed Ergocalciferol (Vitamin D2) 1,250 Mcg Capsule, 1,250 MCG PO SAT, (Reported) Last Action: Reviewed Estradiol 1 Each Patch.tdsw, 1 PATCH TD TWICE WEEKLY, (Reported) NEXT PATCH IS DUE Sunday01-31-2021 Last Action: Reviewed Fexofenadine HCl 180 Mg Tablet, 180 MG PO DAILY, (Reported) Last Action: Reviewed Glipizide 5 Mg Tablet, 5 MG PO DAILY, (Reported) Last Action: Reviewed Hydrocodone/Acetaminophen 1 Each Tablet, 1-2 TAB PO Q8H PRN for PAIN-MODERATE (5-7), (Reported) Last Action: Reviewed Ibuprofen 200 Mg Capsule, 400-600 MG PO Q8H PRN for PAIN-MILD (1-4), (Reported) Last Action: Reviewed Levothyroxine Sodium 88 Mcg Capsule, 88 MCG PO DAILY, (Reported) Last Action: Reviewed Liothyronine Sodium 5 Mcg Tablet, 5 MCG PO DAILY, (Reported) Last Action: Reviewed Pantoprazole Sodium 40 Mg Tablet.dr, 40 MG PO HS, (Reported) Last Action: Reviewed Polyethylene Glycol 3350 17 Gm Powd.pack, 17 GM PO BID, (Reported) Last Action: Reviewed Sennosides/Docusate Sodium 1 Each Tablet, 2 EACH PO BID, (Reported) Last Action: Reviewed Valsartan 320 Mg Tablet, 320 MG PO DAILY, (Reported) Last Action: Reviewed Patient Home Medication List Home Medication List Reviewed: Yes Past Nrpauae-Xadzcu-Eeqxrh Hx Patient Social History Smoking Status: Never a Smoker Recent Hopitalizations: No Alcohol Use?: No Have you traveled recently?: Yes Immunizations Up To Date Tetanus Booster (TDap): Less than 5yrs PED Vaccines UTD: Yes Date of Pneumonia Vaccine: Apr 11, 2012 Date of Influenza Vaccine: Jun 15, 2016 Seasonal Allergies Seasonal Allergies: No Surgeries History of Surgeries: Yes Surgeries: Appendectomy, Breast, Cardiac, Gallbladder, Hysterectomy, Oophorectomy, Orthopedic, Thyroidectomy, Tonsillectomy Respiratory History of Respiratory Disorde: Yes Respiratory Disorders: Asthma Cardiovascular History of Cardiac Disorders: Yes (mitral valve prolapse, heart caths no stents) Cardiac Disorders: Coronary Artery Disease, Heart Attack, Valvular Heart Disease Neurological History of Neurological Disord: Yes Reproductive System Hx Reproductive Disorders: Yes (TOTAL HYSTERECTOMY) Sexually Transmitted Disease: No HIV/AIDS: No Female Reproductive Disorders: Menstrual Problems, Endometriosis, 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 Genitourinary Genitourinary Disorders: Kidney Infection, Kidney Stones, UTI-Chronic Gastrointestinal History of Gastrointestinal Di: Yes (CHRONIC ABDOMINAL PAIN ) Gastrointestinal Disorders: Gastroesophageal Reflux, Crohns Disease, Diverticulosis, Polyps, Hiatal Hernia, Ulcer, Gall Bladder Disease, Irritable Bowel Musculoskeletal History of Musculoskeletal Dis: Yes (ANKLYLOSING SPONDYLITIS) Musculoskeletal Disorders: Degenerate Disk Disease, Arthritis, Chronic Back Pain Endocrine History of Endocrine Disorders: Yes Endocrine Disorders: Hypothyroidsim, Lupus HEENT Loss of Vision: Denies Hearing Impairment: Denies Cancer History of Cancer: No Psychosocial History of Psychiatric Problem: No Integumentary History of Skin or Integumenta: Yes (STAPH INFECTIONS) Blood Transfusions History of Blood Disorders: No Adverse Reaction to a Blood Tr: No Reviewed Nursing Assessment Reviewed/Agree w Nursing PMH: Yes Family Medical History Significant Family History: No Pertinent Family Hx Family Medial History: Family history: Cardiovascular disease Family history: Diabetes mellitus 03 MOTHER 09 BROTHER Family history: Glaucoma 03 MOTHER Family history: Thyroid disorder 03 MOTHER Heart disease 03 FATHER (AORTIC VALVE REPLACED) Review of Systems-General Constitutional: No chills, No diaphoresis, No weakness EENTM: No blurred vision, No double vision Respiratory: No cough, No dyspnea on exertion Cardiovascular: No chest pain, No edema Gastrointestinal: RUQ, LLQ, abdominal pain; No nausea, No vomiting Genitourinary: No decreased output, No discharge Musculoskeletal: No back pain, No joint pain Skin: No change in color, No change in hair/nails Psychiatric/Neurological: Denies Anxiety, Denies Depressed, Denies Emotional Problems All Other Systems Reviewed Negative Unless Noted: Yes (Negative excepted noted.) Physical Exam-General Problems Physical Exam Vital Signs Vital Signs - First Documented 01/27/21 13:20 Temp 35.6 Pulse 65 Resp 18 B/P (MAP) 138/65 (89) Pulse Ox 94 O2 Delivery Room Air Capillary Refill : General Appearance: WD/WN, no apparent distress HEENT: PERRL/EOMI, normal ENT inspection Neck: non-tender, supple Respiratory: chest non-tender, no respiratory distress, no accessory muscle use Cardiovascular: regular rate, rhythm, no JVD Gastrointestinal: soft, tenderness (Tenderness in right upper quadrant and left lower quadrant with light pressure) Rectal: deferred Back: no CVA tenderness, no vertebral tenderness Extremities: non-tender, normal inspection 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, alert, normal mood/affect, oriented x 3 Skin: normal color, warm/dry Lymphatic: no adenopathy Data Review Labs Laboratory Tests 01/27/21 13:00: White Blood Count 7.1, Red Blood Count 4.69, Hemoglobin 14.7, Hematocrit 44, Mean Corpuscular Volume 94, Mean Corpuscular Hemoglobin 31, Mean Corpuscular Hemoglobin Concent 34, Red Cell Distribution Width 13.7, Platelet Count 262, Mean Platelet Volume 9.3, Immature Granulocyte % (Auto) 1, Neutrophils (%) (Auto) 61, Lymphocytes (%) (Auto) 30, Monocytes (%) (Auto) 8, Eosinophils (%) (Auto) 1, Basophils (%) (Auto) 0, Neutrophils # (Auto) 4.3, Lymphocytes # (Auto) 2.1, Monocytes # (Auto) 0.6, Eosinophils # (Auto) 0.0, Basophils # (Auto) 0.0, Immature Granulocyte # (Auto) 0.0, Erythrocyte Sedimentation Rate 15, Sodium Level 134L, Potassium Level 4.3, Chloride Level 103, Carbon Dioxide Level 22, Anion Gap 9, Blood Urea Nitrogen 16, Creatinine 0.82, Estimat Glomerular Filtration Rate > 60, BUN/Creatinine Ratio 20, Glucose Level 94, Calcium Level 9.2, Corrected Calcium 9.1, Total Bilirubin 0.3, Aspartate Amino Transf (AST/SGOT) 18, Alanine Aminotransferase (ALT/SGPT) 21, Alkaline Phosphatase 50, Total Protein 8.2, Albumin 4.1, Amylase Level 49, Lipase 62 Assessment/Plan Assessment/Plan Assessment/Plan Right upper quadrant, left lower quadrant abdominal pain Acute diverticulitis Patient is 65-year-old female with recent treatment for acute diverticulitis. Patient with recurrent pain. Patient on Rocephin and Flagyl. Will keep n.p.o. for bowel rest. IV fluids. CT scan pending MILLIE ROSE DO Jan 27, 2021 15:36
[2021-01-27 16:15] VITALS: BP 115/66
--- NOTE | 2021-01-27 16:17 | Diagnostic Imaging Report ---
PROCEDURE: CT abdomen and pelvis without contrast. TECHNIQUE: Multiple contiguous axial images were obtained through the abdomen and pelvis without the use of intravenous contrast. Auto Exposure Controls were utilized during the CT exam to meet ALARA standards for radiation dose reduction. INDICATION: Sigmoid diverticulitis with worsening pain. COMPARISON: 12/30/2020 There is low-density throughout the liver. Surgical findings are seen at the gastroesophageal junction with mild hiatal hernia present. Gallbladder surgically absent without evidence of biliary ductal dilatation. There is no evidence of pancreatic, adrenal gland or splenic abnormality. High density along the left renal cortex is similar to the previous study. There is no hydronephrosis or renal mass. No free fluid is seen within the abdomen or pelvis. Mild inflammation at the level of the sigmoid colon extending into the left pelvic sidewall is decreased compared to previous examination. There is no evidence of new colonic inflammation or focal fluid collection. Unopacified urinary bladder is unremarkable. There is continued diffuse lumbar spondylosis. IMPRESSION: Decreased inflammation at the level of the sigmoid colon without new abnormality or adverse change is identified. Dictated by: Dictated on workstation # [id number]
[2021-01-27] MEDS: inSUlin ASPART (NovoLOG) 1 UNIT/0.01 ML (CHARGE PER UNIT) SC SCH ×2 (16:42→21:04)
[2021-01-27] MEDS: morphine INJ 4 MG/ML 1 ML (VIAL/SYRINGE) IVP PRN ×2 (19:28→21:36)
[2021-01-27] MEDS: D5 1/2 NS 1000 ML IV SOLUTION 1,000 ML IV SCH (19:28)
[2021-01-27 20:45] VITALS: BP 122/68
[2021-01-27] MEDS: PANTOPRAZOLE 40 MG (PROTONIX) VIAL IV SCH (21:10)
[2021-01-28] VITALS (7 sets, daily range): BP systolic 101–135; BP diastolic 57–73
[2021-01-28] MEDS: ONDANSETRON 4 MG/2 ML (SDV) Z0FRAN IV PRN ×6 (00:16→22:54)
[2021-01-28] MEDS: morphine INJ 4 MG/ML 1 ML (VIAL/SYRINGE) IVP PRN ×5 (00:16→18:22)
[2021-01-28] MEDS: D5 1/2 NS 1000 ML IV SOLUTION 1,000 ML IV SCH ×3 (04:03→22:05)
[2021-01-28] MEDS: metroNIDAZOLE 500MG/100ML IVPB 100 ML IV SCH ×3 (05:40→22:54)
[2021-01-28] MEDS: inSUlin ASPART (NovoLOG) 1 UNIT/0.01 ML (CHARGE PER UNIT) SC SCH ×4 (05:47→21:23)
--- NOTE | 2021-01-28 07:30 | Progress Note - Surgery ---
Subjective Date Seen by a Provider: Jan 28, 2021 Time Seen by a Provider: 07:30 Subjective/Events-last exam Patient states that she had a little bit of a rough night. She still having pain more in the left lower quadrant. The right upper quadrant pain has pretty much gone away. Patient not having any nausea or vomiting. She denies any fever sweats chills shortness of breath or chest pain. Patient CT scan showing some inflammation around the sigmoid colon however this is decreased from last scan. Objective Exam Vital Signs Date Time Temp Pulse Resp B/P (MAP) Pulse Ox O2 Delivery O2 Flow Rate FiO2 01/28/21 03:54 35.6 62 16 101/65 (77) 90 Room Air 01/28/21 00:16 36.3 69 16 132/73 (92) 90 Room Air 01/27/21 20:45 36.5 64 16 122/68 (86) 95 Room Air 01/27/21 20:00 Room Air 01/27/21 16:38 Room Air 01/27/21 16:15 36.4 64 16 115/66 (82) 95 Room Air 01/27/21 13:58 Room Air 01/27/21 13:20 35.6 65 18 138/65 (89) 94 Room Air I & O 01/28/21 07:00 Intake Total 0 ml Balance 0 ml Capillary Refill : General Appearance: No Apparent Distress HEENT: PERRL/EOMI, Normal ENT Inspection Neck: Supple Respiratory: Chest Non Tender, No Accessory Muscle Use, No Respiratory Distress Cardiovascular: Regular Rate, Rhythm, No JVD, Gallop/S4 Gastrointestinal: soft, tenderness (Left lower quadrant) Extremity: Non Tender, No Calf Tenderness, No Pedal Edema Neurologic/Psychiatric: Alert, Oriented x3 Skin: Normal Color, Warm/Dry Lymphatic: No Adenopathy Results Lab Laboratory Tests 01/27/21 13:00: White Blood Count 7.1, Red Blood Count 4.69, Hemoglobin 14.7, Hematocrit 44, M joey Corpuscular Volume 94, Mean Corpuscular Hemoglobin 31, Mean Corpuscular Hemoglobin Concent 34, Red Cell Distribution Width 13.7, Platelet Count 262, Mean Platelet Volume 9.3, Immature Granulocyte % (Auto) 1, Neutrophils (%) (Auto) 61, Lymphocytes (%) (Auto) 30, Monocytes (%) (Auto) 8, Eosinophils (%) (Auto) 1, Basophils (%) (Auto) 0, Neutrophils # (Auto) 4.3, Lymphocytes # (Auto) 2.1, Monocytes # (Auto) 0.6, Eosinophils # (Auto) 0.0, Basophils # (Auto) 0.0, Immature Granulocyte # (Auto) 0.0, Erythrocyte Sedimentation Rate 15, Sodium Level 134L, Potassium Level 4.3, Chloride Level 103, Carbon Dioxide Level 22, Anion Gap 9, Blood Urea Nitrogen 16, Creatinine 0.82, Estimat Glomerular Filtration Rate > 60, BUN/Creatinine Ratio 20, Glucose Level 94, Calcium Level 9.2, Corrected Calcium 9.1, Total Bilirubin 0.3, Aspartate Amino Transf (AST/SGOT) 18, Alanine Aminotransferase (ALT/SGPT) 21, Alkaline Phosphatase 50, Total Protein 8.2, Albumin 4.1, Amylase Level 49, Lipase 62 01/27/21 16:22: Glucometer 75 01/27/21 21:01: Glucometer 87 01/28/21 05:45: Glucometer 129H Assessment/Plan Assessment/Plan Assessment/Plan Right upper quadrant left lower quadrant abdominal pain. The right upper quadrant pain improved Acute diverticulitis Patient CT scan results reviewed with her. We'll continue with pain control, IV fluids, IV antibiotics. Bowel rest. Advance diet when patient begins having pain improvement. Patient agrees with plan. MILLIE ROSE DO Jan 28, 2021 07:30
[2021-01-28] MEDS ORDERED: LEVOTHYROXINE 25 MCG (LEVOTHROID) TAB PO ONE (08:30)
[2021-01-28] MEDS ORDERED: LEVOTHYROXINE 88 MCG (LEVOTHORID) TAB PO ONE (08:30)
[2021-01-28] MEDS ORDERED: PATIENT MAY USE OWN MED,SINGLE MED PO SCH (09:00)
[2021-01-28] MEDS ORDERED: [UNRECOGNIZED DRUG - REMARK] PO SCH ×2 (09:00)
[2021-01-28] MEDS ORDERED: LEVOTHYROXINE 88 MCG (LEVOTHORID) TAB PO SCH (09:00)
[2021-01-28] MEDS: [UNRECOGNIZED DRUG - REMARK] PO SCH (10:19)
[2021-01-28] MEDS ORDERED: PATIENT MAY USE OWN MEDS, ALL MC SCH (10:45)
--- NOTE | 2021-01-28 10:51 | Progress Note ---
Subjective Date Seen by a Provider: Jan 28, 2021 Time Seen by a Provider: 10:45 Subjective/Events-last exam Fwup acute sigmoid diverticulitis, RUQ pain, HTN, DMII. Had to switch from fentanyl to morphine due to fentanyl not controlling pain and morphine was not controlling pain as well until last dose. Had BM yesterday afternoon but none today. Objective Exam Vital Signs Date Time Temp Pulse Resp B/P (MAP) Pulse Ox O2 Delivery O2 Flow Rate FiO2 01/28/21 08:00 35.9 62 22 113/57 (75) 96 Room Air 01/28/21 03:54 35.6 62 16 101/65 (77) 90 Room Air 01/28/21 00:16 36.3 69 16 132/73 (92) 90 Room Air 01/27/21 20:45 36.5 64 16 122/68 (86) 95 Room Air 01/27/21 20:00 Room Air 01/27/21 16:38 Room Air 01/27/21 16:15 36.4 64 16 115/66 (82) 95 Room Air 01/27/21 13:58 Room Air 01/27/21 13:20 35.6 65 18 138/65 (89) 94 Room Air I & O 01/28/21 07:00 Intake Total 0 ml Balance 0 ml Capillary Refill : General Appearance: Mild Distress Respiratory: Lungs Clear Cardiovascular: Regular Rate, Rhythm Gastrointestinal: soft, abnormal bowel sounds, rebound (RLQ/LLQ/RUQ pain) Extremity: Non Tender, No Calf Tenderness, No Pedal Edema Neurologic/Psychiatric: Alert, Oriented x3 Results Lab Laboratory Tests 01/27/21 13:00: White Blood Count 7.1, Red Blood Count 4.69, Hemoglobin 14.7, Hematocrit 44, Mean Corpuscular Volume 94, Mean Corpuscular Hemoglobin 31, Mean Corpuscular Hemoglobin Concent 34, Red Cell Distribution Width 13.7, Platelet Count 262, Mean Platelet Volume 9.3, Immature Granulocyte % (Auto) 1, Neutrophils (%) (Auto) 61, Lymphocytes (%) (Auto) 30, Monocytes (%) (Auto) 8, Eosinophils (%) (Auto) 1, Basophils (%) (Auto) 0, Neutrophils # (Auto) 4.3, Lymphocytes # (Auto) 2.1, Monocytes # (Auto) 0.6, Eosinophils # (Auto) 0.0, Basophils # (Auto) 0.0, Immature Granulocyte # (Auto) 0.0, Erythrocyte Sedimentation Rate 15, Sodium Level 134L, Potassium Level 4.3, Chloride Level 103, Carbon Dioxide Level 22, Anion Gap 9, Blood Urea Nitrogen 16, Creatinine 0.82, Estimat Glomerular Filtration Rate > 60, BUN/Creatinine Ratio 20, Glucose Level 94, Calcium Level 9.2, Corrected Calcium 9.1, Total Bilirubin 0.3, Aspartate Amino Transf (AST/SGOT) 18, Alanine Aminotransferase (ALT/SGPT) 21, Alkaline Phosphatase 50, Total Protein 8.2, Albumin 4.1, Amylase Level 49, Lipase 62 01/27/21 16:22: Glucometer 75 01/27/21 21:01: Glucometer 87 01/28/21 05:45: Glucometer 129H Assessment/Plan Assessment/Plan Assess & Plan/Chief Complaint 1. Acute Sigmoid Diverticulitis--failed outpatient treatment, continue gut rest today and if pain controlled then start clear liquids tomorrow, continue IV flagyl/rocephin and IV morphine for pain 2. HTN--restart home meds with sip of water 3. GERD--on IV protonix 4. DMII--on accuchecks with SSI--currently on D51/2 NS--will switch back to NS when restart diet Clinical Quality Measures Admission Status Admission Dx 1. Acute Sigmoid Diverticulitis with Worsening Abdominal Pain--admit for gut rest, IVFs, IV abx, repeat CT abdomen/pelvis, consult surgery, pain control, check CBC, CMP, ESR 2. Hypertension--resume home meds 3. DMII--accuchecks with SSI B 4. GERD--IV protonix REID ANN DO Jan 28, 2021 10:51
[2021-01-28] MEDS: PANTOPRAZOLE 40 MG (PROTONIX) VIAL IV SCH ×2 (10:56→21:26)
[2021-01-28] MEDS: ENOXAPARIN 40 MG/0.4 ML (LOVENOX) SYR SC SCH (12:38)
[2021-01-28] MEDS: cefTRIAXone 1,000 MG in WATER (STERILE) FOR INJECTION 10 ML IV SCH (12:58)
[2021-01-28] MEDS ORDERED: NON-FORMULARY MEDICATION 1 EA EA (Bisoprolol Fumarate 10 MG) PO SCH (21:00)
[2021-01-28] MEDS ORDERED: NON-FORMULARY MEDICATION 1 EA EA (Duloxetine HCl 60 MG) PO SCH (21:00)
[2021-01-28] MEDS: polyethylene glycoL POWDER 17 GM (MIRALAX) PACK PO SCH (21:25)
[2021-01-28] MEDS: MELATONIN 3 MG TABLET PO SCH (21:25)
[2021-01-28] MEDS: traZODone 50 MG (DESYREL) TAB PO SCH (21:27)
[2021-01-28] MEDS: BISOPROLOL 5 MG TAB (ZEBETA) PO SCH (21:28)
[2021-01-28] MEDS: DULoxetine 30 MG (CYMBALTA) CAP PO SCH (21:28)
[2021-01-29] MEDS: ONDANSETRON 4 MG/2 ML (SDV) Z0FRAN IV PRN ×2 (02:40→15:03)
[2021-01-29 05:00] VITALS: BP 137/84
[2021-01-29] MEDS: morphine INJ 4 MG/ML 1 ML (VIAL/SYRINGE) IVP PRN ×3 (05:22→20:25)
[2021-01-29] MEDS: inSUlin ASPART (NovoLOG) 1 UNIT/0.01 ML (CHARGE PER UNIT) SC SCH ×4 (05:30→20:57)
[2021-01-29 05:52] LABS: HEMATOCRIT 43 % (35-52); HEMOGLOBIN 14.1 g/dL (11.5-16.0); MEAN CORPUSCULAR HEMOGLOBIN 31 pg (25-34); MEAN CORPUSCULAR HGB CONC 33 g/dL (32-36); MEAN CORPUSCULAR VOLUME 94 fL (80-99); MEAN PLATELET VOLUME 9.2 fL (9.0-12.2); PLATELET COUNT 224 10^3/uL (130-400); WHITE BLOOD COUNT 5.4 10^3/uL (4.3-11.0)
[2021-01-29 06:06] LABS: ALBUMIN 3.6 GM/DL (3.2-4.5); CHLORIDE 103 MMOL/L (98-107); SODIUM 137 MMOL/L (135-145)
[2021-01-29 06:07] LABS: CALCIUM 7.7 MG/DL (8.5-10.1)
[2021-01-29 06:09] LABS: GLUCOSE 147 MG/DL (70-105); TOTAL PROTEIN 6.7 GM/DL (6.4-8.2)
[2021-01-29 06:10] LABS: CARBON DIOXIDE 24 MMOL/L (21-32)
[2021-01-29 06:11] LABS: BILIRUBIN,TOTAL 0.3 MG/DL (0.1-1.0)
[2021-01-29 06:12] LABS: ALKALINE PHOSPHATASE 45 U/L (40-136); CREATININE SERUM 0.85 MG/DL (0.60-1.30); GFR ESTIMATED > 60
[2021-01-29 06:13] LABS: BUN/CREATININE RATIO 11
[2021-01-29 06:15] LABS: ALANINE AMINOTRANSFERASE 22 U/L (0-55)
[2021-01-29] MEDS: metroNIDAZOLE 500MG/100ML IVPB 100 ML IV SCH ×3 (06:47→21:39)
[2021-01-29] MEDS: NON-FORMULARY MEDICATION 1 EA EA (Liothyronine Sodium 5 MCG) PO SCH (06:50)
[2021-01-29] MEDS: [UNRECOGNIZED DRUG - REMARK] PO SCH (06:50)
[2021-01-29] MEDS: D5 1/2 NS 1000 ML IV SOLUTION 1,000 ML IV SCH ×3 (06:56→20:32)
[2021-01-29 08:00] VITALS: BP 131/58
[2021-01-29] MEDS ORDERED: NON-FORMULARY MEDICATION 1 EA EA PO SCH ×2 (09:00)
[2021-01-29] MEDS ORDERED: NON-FORMULARY MEDICATION 1 EA EA (Valsartan 320 MG) PO SCH (09:00)
[2021-01-29] MEDS ORDERED: LEVOTHYROXINE SODIUM 88 MCG PO SCH (09:00)
[2021-01-29] MEDS ORDERED: VALSARTAN 160 MG (DIOVAN) TABLET PO SCH (09:00)
[2021-01-29] MEDS: polyethylene glycoL POWDER 17 GM (MIRALAX) PACK PO SCH ×2 (09:33→20:26)
[2021-01-29] MEDS: PANTOPRAZOLE 40 MG (PROTONIX) VIAL IV SCH ×2 (09:33→20:25)
[2021-01-29] MEDS: BISOPROLOL 5 MG TAB (ZEBETA) PO SCH (09:34)
--- NOTE | 2021-01-29 11:35 | Progress Note ---
Subjective Subjective Date Seen by Provider: Jan 29, 2021 Time Seen by Provider: 11:30 Patient is thirsty and hungry and would like to advance her diet. She is feeling better today than she has felt all week. She took a shower. Review of Systems General: No Chills, No Night Sweats HEENT: No Head Aches Pulmonary: No Dyspnea, No Cough Cardiovascular: No: Chest Pain, Palpitations Gastrointestinal: Nausea; No: Vomiting, Abdominal Pain, Constipation Musculoskeletal: No: neck pain Neurological: No: Weakness, Confusion All Other Systems Reviewed All Other Systems Reviewed: Yes (Negative excepted noted.) Objective Exam Vital Signs Vital Signs Date Time Temp Pulse Resp B/P (MAP) Pulse Ox O2 Delivery O2 Flow Rate FiO2 01/29/21 08:00 36.1 66 18 131/58 (82) 95 Room Air 01/29/21 05:00 36.4 74 18 137/84 (101) 95 Room Air 01/28/21 23:52 36.6 64 20 118/60 (79) 93 Room Air 01/28/21 20:00 Room Air 01/28/21 19:45 36.4 74 18 125/69 (87) 96 Room Air 01/28/21 15:30 36.2 61 16 135/70 (91) 95 Room Air 01/28/21 12:00 36.0 61 20 124/71 (88) 95 Room Air I & O 01/29/21 07:00 Intake Total 2210 ml Balance 2210 ml General Appearance: No Apparent Distress HEENT: PERRL/EOMI, Normal ENT Inspection Neck: Supple Respiratory: Lungs Clear Cardiovascular: Regular Rate, Rhythm Gastrointestinal: Normal Bowel Sounds, Non Tender, Soft; No Abnormal Bowel Sounds, No Guarding, No Rebound Rectal: Deferred Back: No CVA Tenderness Extremity: Non Tender, No Calf Tenderness, No Pedal Edema Neurologic/Psychiatric: Alert, Oriented x3 Skin: Normal Color, Warm/Dry Lymphatic: No Adenopathy Results Lab Laboratory Tests 01/28/21 15:37: Glucometer 126H 01/28/21 19:51: Glucometer 131H 01/29/21 05:18: Glucometer 163H 01/29/21 05:22: White Blood Count 5.4, Red Blood Count 4.51, Hemoglobin 14.1, Hematocrit 43, Mean Corpuscular Volume 94, Mean Corpuscular Hemoglobin 31, Mean Corpuscular Hemoglobin Concent 33, Red Cell Distribution Width 13.6, Platelet Count 224, Mean Platelet Volume 9.2, Sodium Level 137, Potassium Level 4.0, Chloride Level 103, Carbon Dioxide Level 24, Anion Gap 10, Blood Urea Nitrogen 9, Creatinine 0.85, Estimat Glomerular Filtration Rate > 60, BUN/Creatinine Ratio 11, Glucose Level 147H, Calcium Level 7.7L, Corrected Calcium 8.0L, Total Bilirubin 0.3, Aspartate Amino Transf (AST/SGOT) 17, Alanine Aminotransferase (ALT/SGPT) 22, Alkaline Phosphatase 45, Total Protein 6.7, Albumin 3.6 01/29/21 10:27: Glucometer 128H Assessment/Plan Assessment/Plan Assessment and Plan 01/29/21- continue antibiotics, ivf. Advancing diet as she is hungry and thirsty. Pain is under better control. Dispo: improving. No new issues. Moving closer to discharge. Problems: (1) Sigmoid diverticulitis (2) Abdominal pain Qualifiers: Qualified Codes: R10.84 - Generalized abdominal pain (3) GERD without esophagitis Assessment & Plan: PPI (4) HTN (hypertension) (5) DMII (diabetes mellitus, type 2) Assessment & Plan: ISELA FLORES MD Jan 29, 2021 11:35
--- NOTE | 2021-01-29 12:56 | Progress Note - Surgery ---
Subjective Time Seen by a Provider: 11:39 Subjective/Events-last exam Pt seen and examined, states she is feeling much better than she has ever felt. However, she states she is still having some abdominal pain in the lower abdomen. Denies N/V. Review of Systems General: No Fatigue, No Malaise Pulmonary: No Dyspnea, No Cough Cardiovascular: No: Chest Pain, Palpitations Gastrointestinal: Abdominal Pain; No: Nausea, Vomiting Objective Exam Vital Signs Date Time Temp Pulse Resp B/P (MAP) Pulse Ox O2 Delivery O2 Flow Rate FiO2 01/29/21 08:00 36.1 66 18 131/58 (82) 95 Room Air 01/29/21 05:00 36.4 74 18 137/84 (101) 95 Room Air 01/28/21 23:52 36.6 64 20 118/60 (79) 93 Room Air 01/28/21 20:00 Room Air 01/28/21 19:45 36.4 74 18 125/69 (87) 96 Room Air 01/28/21 15:30 36.2 61 16 135/70 (91) 95 Room Air I & O 01/29/21 07:00 Intake Total 2210 ml Balance 2210 ml Capillary Refill : General Appearance: No Apparent Distress, WD/WN HEENT: PERRL/EOMI, Moist Mucous Membranes Respiratory: Lungs Clear, No Accessory Muscle Use, No Respiratory Distress Cardiovascular: Regular Rate, Rhythm, No Murmur Gastrointestinal: soft, no organomegaly, tenderness (lower abdomen) Extremity: No Pedal Edema Neurologic/Psychiatric: Alert, Oriented x3 Skin: Normal Color, Warm/Dry Results Lab Laboratory Tests 01/28/21 15:37: Glucometer 126H 01/28/21 19:51: Glucometer 131H 01/29/21 05:18: Glucometer 163H 01/29/21 05:22: White Blood Count 5.4, Red Blood Count 4.51, Hemoglobin 14.1, Hematocrit 43, Mean Corpuscular Volume 94, Mean Corpuscular Hemoglobin 31, Mean Corpuscular Hemoglobin Concent 33, Red Cell Distribution Width 13.6, Platelet Count 224, Mean Platelet Volume 9.2, Sodium Level 137, Potassium Level 4.0, Chloride Level 103, Carbon Dioxide Level 24, Anion Gap 10, Blood Urea Nitrogen 9, Creatinine 0.85, Estimat Glomerular Filtration Rate > 60, BUN/Creatinine Ratio 11, Glucose Level 147H, Calcium Level 7.7L, Corrected Calcium 8.0L, Total Bilirubin 0.3, Aspartate Amino Transf (AST/SGOT) 17, Alanine Aminotransferase (ALT/SGPT) 22, Alkaline Phosphatase 45, Total Protein 6.7, Albumin 3.6 01/29/21 10:27: Glucometer 128H Assessment/Plan Assessment/Plan Assessment/Plan Diverticulitis Hx of colon polyps Strong Family hx of Colon CA GERD with hx of esophageal dilation I looked at the CT myself and don't really see much if any inflammation; however, she is still having pain and therefore I would only start her on clears. Once pain is completely gone or if it doesn't get worse with clears; then can advance diet slowly. We talked about the fact that she will need a colonoscopy in 6 weeks; partially because of the diverticulitis and partially because her last colonoscopy was 4 years ago and they found 6-7 polyps. At time of colonoscopy she would also benefit from an EGD. CARIN OWEN DO Jan 29, 2021 12:56
[2021-01-29] MEDS: ENOXAPARIN 40 MG/0.4 ML (LOVENOX) SYR SC SCH (13:28)
[2021-01-29] MEDS: cefTRIAXone 1,000 MG in WATER (STERILE) FOR INJECTION 10 ML IV SCH (13:28)
[2021-01-29 16:00] VITALS: BP 137/61
[2021-01-29 19:36] VITALS: BP 132/60
[2021-01-29] MEDS: MELATONIN 3 MG TABLET PO SCH (20:25)
[2021-01-29] MEDS: DULoxetine 30 MG (CYMBALTA) CAP PO SCH (20:25)
[2021-01-29] MEDS: traZODone 50 MG (DESYREL) TAB PO SCH (20:25)
[2021-01-29] MEDS: BISOPROLOL 10 MG PO SCH (20:27)
[2021-01-30 00:17] VITALS: BP 137/65
[2021-01-30] MEDS: D5 1/2 NS 1000 ML IV SOLUTION 1,000 ML IV SCH (03:29)
[2021-01-30] MEDS: inSUlin ASPART (NovoLOG) 1 UNIT/0.01 ML (CHARGE PER UNIT) SC SCH ×4 (05:36→22:33)
[2021-01-30] MEDS: metroNIDAZOLE 500MG/100ML IVPB 100 ML IV SCH ×3 (05:55→22:23)
[2021-01-30 08:00] VITALS: BP 124/58
[2021-01-30] MEDS ORDERED: PANTOPRAZOLE 40 MG (PROTONIX) TAB PO ONE (09:15)
[2021-01-30] MEDS: BISOPROLOL 10 MG PO SCH ×2 (09:15→20:02)
[2021-01-30] MEDS: [UNRECOGNIZED DRUG - REMARK] PO SCH (09:16)
[2021-01-30] MEDS: NON-FORMULARY MEDICATION 1 EA EA (Liothyronine Sodium 5 MCG) PO SCH (09:18)
[2021-01-30] MEDS: polyethylene glycoL POWDER 17 GM (MIRALAX) PACK PO SCH ×2 (09:18→19:44)
--- NOTE | 2021-01-30 10:36 | Progress Note - Surgery ---
Subjective Time Seen by a Provider: 09:33 Subjective/Events-last exam Pt seen and examined, stated she feels fine today with still a little bit of lower abdominal pain. States last night she had a lot of pain and diarrhea after drinking some Ensure. She is otherwise tolerating clears and would like more diet. She is also asking about going home. Review of Systems General: No Fatigue, No Malaise Pulmonary: No Dyspnea, No Cough Cardiovascular: No: Chest Pain, Palpitations Gastrointestinal: Abdominal Pain, Diarrhea; No: Nausea, Vomiting Objective Exam Vital Signs Date Time Temp Pulse Resp B/P (MAP) Pulse Ox O2 Delivery O2 Flow Rate FiO2 01/30/21 08:00 35.6 61 20 124/58 (80) 94 Room Air 01/30/21 00:17 36.2 66 17 137/65 (89) 96 Room Air 01/29/21 20:00 95 Room Air 01/29/21 19:36 36.6 83 16 132/60 (84) 91 Room Air 01/29/21 16:00 36.3 69 20 137/61 (86) 99 Room Air I & O 01/30/21 07:00 Intake Total 3170 ml Balance 3170 ml Capillary Refill : General Appearance: No Apparent Distress, WD/WN HEENT: PERRL/EOMI, Moist Mucous Membranes Respiratory: Lungs Clear, No Accessory Muscle Use, No Respiratory Distress Cardiovascular: Regular Rate, Rhythm, No Murmur Gastrointestinal: soft, no organomegaly, tenderness (lower abdomen) Extremity: No Pedal Edema Neurologic/Psychiatric: Alert, Oriented x3 Skin: Normal Color, Warm/Dry Results Lab Laboratory Tests 01/29/21 10:27: Glucometer 128H 01/29/21 16:21: Glucometer 62L 01/29/21 20:49: Glucometer 136H 01/30/21 05:26: Glucometer 125H Assessment/Plan Assessment/Plan Assessment/Plan Diverticulitis Hx of colon polyps Strong Family hx of Colon CA GERD with hx of esophageal dilation Pt is still having minimal pain, but slightly improved and therefore she can advance to soft diet. Pt can be sent home if pain is controlled with oral meds and she tolerates increasing diet without increasing pain. I still recommend colonoscopy as an outpt and would wait to do EGD at the same time. CARIN OWEN DO Jan 30, 2021 10:36
[2021-01-30] MEDS: NS IV 1000 ML 1,000 ML IV SCH ×3 (11:24→22:27)
[2021-01-30] MEDS: PANTOPRAZOLE 40 MG (PROTONIX) TAB PO SCH ×2 (11:32→20:01)
[2021-01-30] MEDS: ENOXAPARIN 40 MG/0.4 ML (LOVENOX) SYR SC SCH (12:27)
[2021-01-30] MEDS: cefTRIAXone 1,000 MG in WATER (STERILE) FOR INJECTION 10 ML IV SCH (12:28)
--- NOTE | 2021-01-30 13:08 | Progress Note ---
Subjective Subjective Date Seen by Provider: Jan 30, 2021 Time Seen by Provider: 11:30 Patient reports she is feeling much better today- last night she did not feel well. Upset stomach. She had normal bowel movement followed by loose stools yesterday. She would like to go home today but understands. Dr. Sage told her she is staying until tomorrow or Sunday. Review of Systems General: No Fatigue, No Malaise HEENT: No Head Aches Pulmonary: No Dyspnea, No Cough Cardiovascular: No: Chest Pain, Palpitations Gastrointestinal: Abdominal Pain, Diarrhea; No: Nausea, Vomiting Musculoskeletal: No: neck pain Neurological: No: Weakness, Confusion All Other Systems Reviewed All Other Systems Reviewed: Yes (Negative excepted noted.) Objective Exam Vital Signs Vital Signs Date Time Temp Pulse Resp B/P (MAP) Pulse Ox O2 Delivery O2 Flow Rate FiO2 01/30/21 08:00 Room Air 01/30/21 08:00 35.6 61 20 124/58 (80) 94 Room Air 01/30/21 00:17 36.2 66 17 137/65 (89) 96 Room Air 01/29/21 20:00 95 Room Air 01/29/21 19:36 36.6 83 16 132/60 (84) 91 Room Air 01/29/21 16:00 36.3 69 20 137/61 (86) 99 Room Air I & O 01/30/21 07:00 Intake Total 3170 ml Balance 3170 ml General Appearance: No Apparent Distress, WD/WN HEENT: PERRL/EOMI, Moist Mucous Membranes Respiratory: Lungs Clear, No Accessory Muscle Use, No Respiratory Distress Cardiovascular: Regular Rate, Rhythm, No Murmur Gastrointestinal: Normal Bowel Sounds, Non Tender, Soft; No Abnormal Bowel Sounds, No Guarding, No Rebound Rectal: Deferred Back: No CVA Tenderness Extremity: No Pedal Edema Neurologic/Psychiatric: Alert, Oriented x3 Skin: Normal Color, Warm/Dry Results Lab Laboratory Tests 01/29/21 16:21: Glucometer 62L 01/29/21 20:49: Glucometer 136H 01/30/21 05:26: Glucometer 125H 01/30/21 11:49: Glucometer 164H Assessment/Plan Assessment/Plan Assessment and Plan 01/29/21- continue antibiotics, ivf. Advancing diet as she is hungry and thirsty. Pain is under better control. 01/30/21- continue to advance diet. monitor for nausea/vomiting/diarrhea. Continue IV antibiotics may transition to po on discharge. Changed IVF to normal saline from D51/2NS. Dispo: improving. No new issues. Problems: (1) Sigmoid diverticulitis (2) Abdominal pain Qualifiers: Qualified Codes: R10.84 - Generalized abdominal pain (3) GERD without esophagitis Assessment & Plan: PPI (4) HTN (hypertension) Qualifiers: Qualified Codes: I10 - Essential (primary) hypertension Assessment & Plan: under good control (5) DMII (diabetes mellitus, type 2) Assessment & Plan: SSI; change to po DM medication when taking full meal. ISELA GALINDO MD Jan 30, 2021 13:08
[2021-01-30 16:22] VITALS: BP 145/67
[2021-01-30] MEDS: traZODone 50 MG (DESYREL) TAB PO SCH (20:01)
[2021-01-30] MEDS: MELATONIN 3 MG TABLET PO SCH (20:01)
[2021-01-30] MEDS: morphine INJ 4 MG/ML 1 ML (VIAL/SYRINGE) IVP PRN (22:27)
[2021-01-31] VITALS: BP 123/56
[2021-01-31] MEDS: metroNIDAZOLE 500MG/100ML IVPB 100 ML IV SCH (05:35)
[2021-01-31] MEDS: LIOTHYRONINE SODIUM PO SCH ×2 (05:37→08:49)
[2021-01-31] MEDS: LEVOTHYROXINE 88 MCG PO SCH ×2 (05:37→08:49)
[2021-01-31] MEDS: inSUlin ASPART (NovoLOG) 1 UNIT/0.01 ML (CHARGE PER UNIT) SC SCH ×2 (05:55→10:51)
[2021-01-31] MEDS: BISOPROLOL 10 MG PO SCH (08:47)
[2021-01-31] MEDS: polyethylene glycoL POWDER 17 GM (MIRALAX) PACK PO SCH (08:50)
[2021-01-31] MEDS: PANTOPRAZOLE 40 MG (PROTONIX) TAB PO SCH (08:50)
[2021-01-31 08:54] VITALS: BP 170/74
[2021-01-31] MEDS ORDERED: PANTOPRAZOLE 40 MG (PROTONIX) TAB PO SCH (09:00)
[2021-01-31] MEDS ORDERED: glipiZIDE 5 MG (GLUCOTROL) TAB PO SCH (09:00)
[2021-01-31] MEDS ORDERED: EMPAGLIFLOZIN PO SCH (09:00)
[2021-01-31] MEDS ORDERED: LINAGLIPTIN PO SCH (09:00)
[2021-01-31] MEDS: ENOXAPARIN 40 MG/0.4 ML (LOVENOX) SYR SC SCH (12:46)
[2021-01-31] MEDS ORDERED: CEFD300C3 PO (12:46)
[2021-01-31] MEDS ORDERED: METR500T PO (12:46)
[2021-01-31] MEDS: cefTRIAXone 1,000 MG in WATER (STERILE) FOR INJECTION 10 ML IV SCH (12:47)
[2021-01-31] MEDS: morphine INJ 4 MG/ML 1 ML (VIAL/SYRINGE) IVP PRN (13:51)
== END 2021-01-31 14:10 | disposition home or self-care (01) | DRG 392 ==
LOC: UNDOADMOB 12:36 → 4TH 12:36 → EDSTATUS 17:15 → UNDODISOB 01-31 14:10
PROVIDERS: ADMIT Family Medicine; ATTEND Family Medicine
DX: K57.32 Diverticulitis of large intestine without perforation or abscess without bleeding (principal); K50.90 Crohn's disease, unspecified, without complications; I25.10 Atherosclerotic heart disease of native coronary artery without angina pectoris; I34.1 Nonrheumatic mitral (valve) prolapse; K21.9 Gastro-esophageal reflux disease without esophagitis; E11.9 Type 2 diabetes mellitus without complications; M45.6 Ankylosing spondylitis lumbar region; M19.91 Primary osteoarthritis, unspecified site; E03.9 Hypothyroidism, unspecified; M32.9 Systemic lupus erythematosus, unspecified; J45.909 Unspecified asthma, uncomplicated; I25.2 Old myocardial infarction; Z86.010 Personal history of colon polyps; Z79.84 Long term (current) use of oral hypoglycemic drugs; Z79.2 Long term (current) use of antibiotics; Z88.1 Allergy status to other antibiotic agents; Z88.0 Allergy status to penicillin; Z88.2 Allergy status to sulfonamides; Z83.3 Family history of diabetes mellitus; Z80.0 Family history of malignant neoplasm of digestive organs; Z82.49 Family history of ischemic heart disease and other diseases of the circulatory system
CPT/HCPCS: 36415; 74176; 80053; 82150; 82947; 83690; 85025; 85027; 85652

== ENCOUNTER → 2021-04-14 | Outpatient (CLI) | payer MEDICARE, OTHER ==
[~2021-04-14] MED LIST changes: -BISO10TA PO; +BISO10TA6 PO; +CHOL500050 PO; +DOCU100T7 PO; +EMPA1TAB PO; +ERGO1250 PO; +ESTR-44 TD; +GLIP5TAB13 PO; +IBUP-2185 PO; +LEVO88CA2 PO; +POLY17PO6 PO; +VALS320T15 PO
[2021-04-14 15:32] LABS: BASOPHILS % (AUTO) 0 % (0-10); EOSINOPHILS # (AUTO) 0.1 10^3/uL (0.0-0.3); EOSINOPHILS % (AUTO) 1 % (0-10); HEMATOCRIT 41 % (35-52); HEMOGLOBIN 13.4 g/dL (11.5-16.0); LYMPHOCYTES # (AUTO) 1.9 10^3/uL (1.0-4.0); LYMPHOCYTES % (AUTO) 16 % (12-44); MEAN CORPUSCULAR HEMOGLOBIN 32 pg (25-34); MEAN CORPUSCULAR HGB CONC 33 g/dL (32-36); MEAN CORPUSCULAR VOLUME 98 fL (80-99); MEAN PLATELET VOLUME 9.7 fL (9.0-12.2); MONOCYTES # (AUTO) 0.7 10^3/uL (0.0-1.0); MONOCYTES % (AUTO) 6 % (0-12); NEUTROPHILS # (AUTO) 8.8 10^3/uL (1.8-7.8); NEUTROPHILS % (AUTO) 76 % (42-75); PLATELET COUNT 286 10^3/uL (130-400); WHITE BLOOD COUNT 11.6 10^3/uL (4.3-11.0)
[2021-04-14 15:40] LABS: BILIRUBIN,TOTAL 0.5 MG/DL (0.1-1.0); CALCIUM 9.3 MG/DL (8.5-10.1); CREATININE SERUM 1.02 MG/DL (0.60-1.30); POTASSIUM 4.5 MMOL/L (3.6-5.0); TOTAL PROTEIN 7.2 GM/DL (6.4-8.2)
--- NOTE | 2021-04-14 15:44 | Diagnostic Imaging Report ---
INDICATION: Pain. COMPARISON: Exam compared with chest x-ray of 09/14/2018. FINDINGS: Some right perihilar curvilinear scarring and vague subtle nodularity is less conspicuous than on the previous exam. The left lung is clear. There is no effusion or pneumothorax. No acute pulmonary abnormality. IMPRESSION: Some curvilinear and nodular opacities in perihilar right lower lung, decreased in conspicuity from previous study with no adverse development, stable. Clear negative left lung and no pleural pathology or failure. Dictated by: Dictated on workstation # [id number]
--- NOTE | 2021-04-14 15:44 | Diagnostic Imaging Report ---
INDICATION: Right upper quadrant pain, cough, colonoscopy performed yesterday at an outside facility. FINDINGS: There is gas distention of the colon with air-fluid levels at the sigmoid. The small bowel was nondilated. There is some air within the stomach. No pneumatosis. No free gas. Post surgical changes across the SI joint on the left as well as clips in the gallbladder fossa, chronic. IMPRESSION: There is gaseous distention of the colon, likely retained air insufflation. No small bowel dilatation. No extraluminal air collection to suggest viscus perforation. Dictated by: Dictated on workstation # [id number]
== END ==
LOC: RAD 14:53
PROVIDERS: ATTEND Family Medicine
DX: R91.8 Other nonspecific abnormal finding of lung field (principal); R10.11 Right upper quadrant pain; R07.9 Chest pain, unspecified; R05 Cough; Z98.890 Other specified postprocedural states
CPT/HCPCS: 36415; 71046; 74019; 80053; 85025

== ENCOUNTER → 2021-07-14 | Outpatient (CLI) | payer MEDICARE, OTHER ==
--- NOTE | 2021-07-14 08:37 | Diagnostic Imaging Report ---
PROCEDURE: US Thyroid. TECHNIQUE: Multiple real-time grayscale images were obtained of the thyroid in various projections. INDICATION: Hypothyroidism COMPARISON: 05/25/2016 FINDINGS: Left lobe of the thyroid gland is surgically absent. There is an approximately 1.1 x 0.8 x 0.6 cm hypoechoic nodule in the left thyroid bed. Right lobe of thyroid gland measures 4.1 x 1.5 x 1.9 cm without evidence of discrete mass. IMPRESSION: Left thyroidectomy with 1.1 cm nodule in the left thyroid bed. This could represent lymph node. Clinical correlation would be useful. If there is concern for thyroid neoplasm, consideration could be given to iodine nuclear medicine study for characterization of left neck nodule. Dictated by: Dictated on workstation # [id number]
== END ==
LOC: RAD 07:45
PROVIDERS: ATTEND Internal Medicine Endocrinology, Diabetes & Metabolism
DX: E04.1 Nontoxic single thyroid nodule (principal); E03.8 Other specified hypothyroidism; Z90.89 Acquired absence of other organs
CPT/HCPCS: 76536

== ENCOUNTER 2021-11-23 15:57 | Emergency (ER) | payer MEDICARE, OTHER ==
[~2021-11-23] VITALS: Ht 167.7 cm; Wt 86.2 kg
--- NOTE | 2021-11-23 16:35 | ED Chest Pain ---
General Chief Complaint: Head/Cervical Problems Stated Complaint: HIGH BLOOD PRESSURE, SOB Nursing Triage Note: PT STATES SHE HAS BEEN HAVING ALLERGY/SINUS PROBLEMS BUT TODAY C/O SEVERE HEADACHE THAT EXTENDS DOWN HER NECK ON THE RIGHT SIDE TO HER SHOULDER. Source: patient Exam Limitations: no limitations History of Present Illness Date Seen by Provider: Nov 23, 2021 Time Seen by Provider: 16:14 Initial Comments Patient to the ER by private conveyance from [facility] with chief complaint for the past couple days she has had what she thought was allergies but describes it as a headache extending down into her right neck and into her right shoulder. No chest pain or shortness of air. 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 Dr. Saucedo is her primary care doctor and did not have any available space today in her schedule. Patient does not have a history of coronary disease but she has had a couple cardiac catheterizations by Dr. Saravia in the past. She is having a little nausea but no vomiting and it went away. No fevers or chills. No productive cough. No diarrhea dysuria. She has hypertension that was worse after partial colon resection for diverticulitis. She hasDiabetes, GERD, hypothyroidism, no history of hyperlipidemia. She is not a smoker. Echocardiogram [address] Saravia demonstrating an EF of 60% cardiac catheterization [address] Saravia demonstrating angiographically normal coronar y arteries with an EF of 60%. Allergies and Home Medications Allergies Coded Allergies: Penicillins (Verified Allergy, Unknown, 11/08/13) clarithromycin (Verified Allergy, Unknown, 01/30/18) Patient as tolerated azithromycin gluten (Verified Allergy, Unknown, 11/10/13) metoclopramide (Unverified Allergy, Unknown, 11/03/15) piroxicam (Verified Allergy, Unknown, Pt has received Ketorolac w/o issue, 01/29/18) sulfacetamide sodium (Verified Allergy, Unknown, 11/08/13) Patient Home Medication List Home Medication List Reviewed: Yes Bisoprolol Fumarate (Bisoprolol Fumarate) 10 Mg Tablet, 10 MG PO BID, (Reported) Entered as Reported by: ZAHIDA TRIVEDI on 01/29/18 1531 Cefdinir (Cefdinir) 300 Mg Capsule, 300 MG PO BID Prescribed by: REID SAUCEDO on 01/31/21 1246 Cholecalciferol (Vitamin D3) (Vitamin D3) 125 Mcg Capsule, 125 MCG PO HS, (Reported) Entered as Reported by: DOREEN HENRY on 01/27/21 143 Cyanocobalamin (Cyanocobalamin Injection) 1,000 Mcg/Ml Inj, 1,000 MCG IM EVERY 2 MONTHS, (Reported) Entered as Reported by: DOREEN HENRY on 01/27/21 143 Duloxetine HCl (Duloxetine HCl) 60 Mg Capsule.dr, 60 MG PO HS, (Reported) Entered as Reported by: ZAHIDA TRIVEDI on 01/29/18 1518 Empagliflozin/Linagliptin (Glyxambi 25 mg-5 mg Tablet) 1 Each Tablet, 1 EA PO DAILY, (Reported) Entered as Reported by: DOREEN HENRY on 01/27/21 143 Ergocalciferol (Vitamin D2) (Vitamin D2) 1,250 Mcg Capsule, 1,250 MCG PO SAT, (Reported) Entered as Reported by: DOREEN HENRY on 01/27/21 143 Estradiol (Estradiol Patch Twice Weekly 0.1mg/hr) 1 Each Patch.tdsw, 1 PATCH TD TWICE WEEKLY, (Reported) Entered as Reported by: DOREEN HENRY on 01/27/21 143 Fexofenadine HCl (Reyna Allergy) 180 Mg Tablet, 180 MG PO DAILY, (Reported) Entered as Reported by: DOREEN HENRY on 01/27/21 143 Glipizide (Glipizide) 5 Mg Tablet, 5 MG PO DAILY, (Reported) Entered as Reported by: DOREEN HENRY on 01/27/21 143 Hydrocodone/Acetaminophen (Hydrocodone-Acetamin 5-325 mg) 1 Each Tablet, 1-2 TAB PO Q8H PRN for PAIN-MODERATE (5-7), (Reported) Entered as Reported by: DOREEN HENRY on 01/27/21 143 Levothyroxine Sodium (Tirosint) 88 Mcg Capsule, 88 MCG PO DAILY, (Reported) Entered as Reported by: DOREEN HENRY on 01/27/21 143 Liothyronine Sodium (Liothyronine Sodium) 5 Mcg Tablet, 5 MCG PO DAILY, (Reported) Entered as Reported by: ZAHIDA TRIVEDI on 01/29/18 1531 Metronidazole (Flagyl) 500 Mg Tablet, 500 MG PO TID Prescribed by: REID SAUCEDO on 01/31/21 1246 Pantoprazole Sodium (Pantoprazole Sodium) 40 Mg Tablet.dr, 40 MG PO HS, (Reported) Entered as Reported by: ZAHIDA TRIVEDI on 01/29/18 1518 Polyethylene Glycol 3350 (Miralax) 17 Gm Powd.pack, 17 GM PO BID, (Reported) Entered as Reported by: DOREEN HENRY on 01/27/21 1437 Valsartan (Valsartan) 320 Mg Tablet, 320 MG PO DAILY, (Reported) Entered as Reported by: DOREEN HENRY on 01/27/21 1437 Review of Systems Review of Systems Constitutional: No chills, No diaphoresis EENTM: No Blurred Vision, No Double Vision Respiratory: Denies Cough, Denies Shortness of Air Cardiovascular: Denies Chest Pain, Denies Lightheadedness Gastrointestinal: Denies Abdominal Pain, Denies Constipated, Denies Diarrhea, Denies Nausea Genitourinary: Denies Burning, Denies Discharge, Denies Drainage Musculoskeletal: No back pain Skin: No change in color, No pruritus Psychiatric/Neurological: Denies Anxiety, Denies Depressed All Other Systems Reviewed Negative Unless Noted: Yes Past Tedhxtb-Skprck-Izstok Hx Patient Social History Tobacco Use?: No Use of E-Cig and/or Vaping dev: No Substance use?: No Alcohol Use?: No Pt feels they are or have been: No Immunizations Up To Date Tetanus Booster (TDap): Less than 5yrs PED Vaccines UTD: Yes First/Initial COVID19 Vaccinat: YES Seasonal Allergies Seasonal Allergies: No Past Medical History Surgeries: Yes Appendectomy, Breast, Cardiac, Gallbladder, Hysterectomy, Oophorectomy, Orthopedic, Thyroidectomy, Tonsillectomy Respiratory: Yes Asthma Currently Using CPAP: No Currently Using BIPAP: No Cardiac: Yes (mitral valve prolapse, heart caths no stents) Coronary Artery Disease, Heart Attack, Valvular Heart Disease Neurological: Yes Reproductive Disorders: Yes (TOTAL HYSTERECTOMY) Female Reproductive Disorders: Menstrual Problems, Endometriosis, 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 Sexually Transmitted Disease: No HIV/AIDS: No Kidney Infection, Kidney Stones, UTI-Chronic Gastrointestinal: Yes (CHRONIC ABDOMINAL PAIN ) Gastroesophageal Reflux, Crohns Disease, Diverticulosis, Polyps, Hiatal Hernia, Ulcer, Gall Bladder Disease, Irritable Bowel Musculoskeletal: Yes (ANKLYLOSING SPONDYLITIS) Degenerate Disk Disease, Arthritis, Chronic Back Pain Endocrine: Yes Hypothyroidsim, Lupus Loss of Vision: Denies Hearing Impairment: Denies Cancer: No Psychosocial: No Integumentary: Yes (STAPH INFECTIONS) Blood Disorders: No Adverse Reaction/Blood Tranf: No Family Medical History Family history: Cardiovascular disease Family history: Diabetes mellitus 03 MOTHER 09 BROTHER Family history: Glaucoma 03 MOTHER Family history: Thyroid disorder 03 MOTHER Heart disease 03 FATHER (AORTIC VALVE REPLACED) No Pertinent Family Hx Physical Exam Vital Signs Vital Signs - First Documented 11/23/21 16:12 Temp 37.0 Pulse 81 Resp 20 B/P (MAP) 190/94 (126) Pulse Ox 94 O2 Delivery Room Air Capillary Refill : Height, Weight, BMI Height: 5'6.00" Weight: 182lbs. 0.0oz. 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 as Tested Skin: Normal Color, Warm/Dry Progress/Results/Core Measures Results/Orders Lab Results Laboratory Tests Test 11/23/21 16:13 11/23/21 17:40 Range/Units White Blood Count 12.0 H 4.3-11.0 10^3/uL Red Blood Count 4.31 3.80-5.11 10^6/uL Hemoglobin 13.5 11.5-16.0 g/dL Hematocrit 40 35-52 % Mean Corpuscular Volume 93 80-99 fL Mean Corpuscular Hemoglobin 31 25-34 pg Mean Corpuscular Hemoglobin Concent 34 32-36 g/dL Red Cell Distribution Width 13.2 10.0-14.5 % Platelet Count 267 130-400 10^3/uL Mean Platelet Volume 10.3 9.0-12.2 fL Immature Granulocyte % (Auto) 0 % Neutrophils (%) (Auto) 81 H 42-75 % Lymphocytes (%) (Auto) 13 12-44 % Monocytes (%) (Auto) 6 0-12 % Eosinophils (%) (Auto) 1 0-10 % Basophils (%) (Auto) 0 0-10 % Neutrophils # (Auto) 9.6 H 1.8-7.8 10^3/uL Lymphocytes # (Auto) 1.5 1.0-4.0 10^3/uL Monocytes # (Auto) 0.7 0.0-1.0 10^3/uL Eosinophils # (Auto) 0.1 0.0-0.3 10^3/uL Basophils # (Auto) 0.0 0.0-0.1 10^3/uL Immature Granulocyte # (Auto) 0.0 0.0-0.1 10^3/uL Percent Immature Platelet Fraction 4.0 0.0-7.6 % Prothrombin Time 11.9 L 12.2-14.7 SEC INR Comment 0.8 0.8-1.4 Activated Partial Thromboplast Time 20 L 24-35 SEC D-Dimer 0.84 H 0.00-0.49 UG/ML Sodium Level 136 135-145 MMOL/L Potassium Level 4.3 3.6-5.0 MMOL/L Chloride Level 102 98-107 MMOL/L Carbon Dioxide Level 22 21-32 MMOL/L Anion Gap 12 5-14 MMOL/L Blood Urea Nitrogen 14 7-18 MG/DL Creatinine 0.97 0.60-1.30 MG/DL Estimat Glomerular Filtration Rate 64 BUN/Creatinine Ratio 14 Glucose Level 111 H 70-105 MG/DL Calcium Level 8.7 8.5-10.1 MG/DL Corrected Calcium 8.6 8.5-10.1 MG/DL Magnesium Level 2.1 1.6-2.4 MG/DL Total Bilirubin 0.4 0.1-1.0 MG/DL Aspartate Amino Transf (AST/SGOT) 21 5-34 U/L Alanine Aminotransferase (ALT/SGPT) 28 0-55 U/L Alkaline Phosphatase 58 40-136 U/L Myoglobin 42.8 10.0-92.0 NG/ML Troponin I < 0.028 < 0.028 <0.028 NG/ML B-Type Natriuretic Peptide 271.7 H <100.0 PG/ML Total Protein 7.2 6.4-8.2 GM/DL Albumin 4.1 3.2-4.5 GM/DL Lipase 56 8-78 U/L My Orders Orders - CHRIS LEDEZMA Yousuf Cbc With Automated Diff (11/23/21 16:31) Magnesium (11/23/21 16:31) Chest 1 View, Ap/Pa Only (11/23/21 16:31) Ekg Tracing (11/23/21 16:) Comprehensive Metabolic Panel (11/23/21 16:) Myoglobin Serum (11/23/21 16:31) Protime With Inr (11/23/21 16:) Partial Thromboplastin Time (11/23/21 16:) O2 (11/23/21 16:) Monitor-Rhythm Ecg Trace Only (11/23/21 16:) Lipid Panel (11/24/21 06:00) Ed Iv/Invasive Line Start (11/23/21 16:31) Lipase (11/23/21 16:31) Bnp [place] (11/23/21 16:31) Fibrin Degradation Products (11/23/21 16:31) Troponin I Sissy (11/23/21 16:31) Aspirin Chewable Tablet (Baby Aspirin Ch (11/23/21 16:45) Ondansetron Injection (Zofran Injectio (11/23/21 17:00) Troponin I [place] (11/23/21 17:23) Ekg Tracing (11/23/21 17:23) Ct Head Wo (11/23/21 17:23) Medications Given in ED Current Medications Medications Dose Ordered Sig/Charmaine Route Start Time Stop Time Status Last Admin Dose Admin Aspirin 324 mg ONCE ONCE PO 11/23/21 16:45 11/23/21 16:46 DC 11/23/21 16:36 324 MG Ondansetron HCl 8 mg ONCE ONCE IVP 11/23/21 17:00 11/23/21 17:01 DC 11/23/21 17:11 8 MG Vital Signs/I&O 11/23/21 16:12 Temp 37.0 Pulse 81 Resp 20 B/P (MAP) 190/94 (126) Pulse Ox 94 O2 Delivery Room Air Blood Pressure Mean: 126 Progress Progress Note : Time: 16:38 Progress Note Patient could be experiencing some atypical anginal symptoms with her neck and shoulder pain however she states it originates from a headache. Her blood pressure is up 190 systolic on arrival. She says ever since she had a partial colon resection for diverticulitis she is had problems with elevated blood pressure. Initial ECG Impression Date: Nov 23, 2021 Initial ECG Impression Time: 16:37 Initial ECG Rate: 80 Initial ECG Rhythm: Normal Sinus Initial ECG Intervals: Normal Initial ECG Impression: Normal Initial ECG Comparisson: Unchanged Comment Normal sinus rhythm without clinically relevant ST elevation or depression. EKG #1: Rate: 81 Rhythm: Normal Sinus Intervals: Normal ECG Impression: Normal Comment Normal sinus rhythm without clinically relevant ST elevation or depression EKG #2: EKG Time: 17:55 Rate: 80 Rhythm: Normal Sinus Intervals: Normal ECG Comparisson: Unchanged ECG Impression: Normal Comment Normal sinus rhythm without clinically relevant ST elevation or depression. Diagnostic Imaging Diagonstic Imaging: Xray Plain Films/CT/US/NM/MRI: chest [facility] [place] [place] NAME: LUPE AYALA [facility] REC#: [id number] PT STATUS: REG ER : 1955 PHYSICIAN: CHRIS LEDEZMA MD ADMIT DATE: 11/23/21/ER Signed Date of Exam:11/23/21 CHEST 1 VIEW, AP/PA ONLY INDICATION: Chest pain. EXAMINATION: Portable chest at 4:51 p.m. FINDINGS: Heart size and pulmonary vascularity are normal. Lungs are clear. There are no effusions or pneumothoraces. IMPRESSION: No acute abnormalities in the chest. Dictated by: Dictated on workstation # [id number] Dict: 11/23/211650 Trans: 11/23/211656 [id number] Interpreted by: IGNACIA BRANCH MD Electronically signed by: IGNACIA BRANCH MD 11/23/211656 Reviewed: Reviewed by Me Diagonstic Imaging: CT Plain Films/CT/US/NM/MRI: head Comments [facility] [place] [place] NAME: SHADI AYALAAMARJIT Kraus [facility] REC#: [id number] PT STATUS: REG ER : 1955 PHYSICIAN: CHRIS LEDEZMA MD ADMIT DATE: 11/23/21/ER Signed Date of Exam:11/23/21 CT HEAD WO PROCEDURE: CT head without contrast. TECHNIQUE: Multiple contiguous axial images were obtained through the brain without the use of intravenous contrast. Auto Exposure Controls were utilized during the CT exam to meet ALARA standards for radiation dose reduction. DATE: November 23, 2021. COMPARISON: CT head November 14, 2013. INDICATION: 66-year-old female, severe headache. FINDINGS: The ventricles and cerebral spinal fluid spaces are of normal size and configuration for the patient's age. There is no mass effect or midline shift. There is no acute intracranial hemorrhage. There is no abnormal extra-axial fluid collection. The visualized portions of the paranasal sinuses, mastoid air cells and middle ears are well aerated. IMPRESSION: No identified acute intracranial abnormality. Dictated by: Dictated on workstation # [id number] Dict: 11/23/211742 Trans: 11/23/211746 [id number] Interpreted by: ROBIN FUNEZ MD Electronically signed by: ROBIN FUNEZ MD 11/23/211746 Reviewed: Reviewed by Me Consults : Consulting Physician: KIRK SARAVIA MD FACP FAC CCDS Consults Notes Discussed the case with Dr. Saravia, cardiology and he recommends a repeat troponin and he will follow-up with her in the clinic. As far as work-up of the headache he would recommend a CT noncontrast Departure Impression Primary Impression: Headache Qualified Codes: G44.201 - Tension-type headache, unspecified, intractable Additional Impression: Atypical angina suspected Disposition: HOME, SELF-CARE Condition: Stable Departure-Patient Inst. Decision time for Depature: 18:00 Referrals: REID SAUCEDO DO (PCP/Family) Primary Care Physician Patient Instructions: Headache, Adult ED Add. Discharge Instructions: Call Dr. Saravia's office and he would be happy to see you first thing in the morning. Return to the ER for significantly worsening symptoms. All discharge instructions reviewed with patient and/or family. Voiced understanding. CHRIS LEDEZMA Nov 23, 2021 16:35
[2021-11-23 16:37] LABS: BASOPHILS % (AUTO) 0 % (0-10); PLATELET COUNT 267 10^3/uL (130-400)
[2021-11-23 16:38] LABS: EOSINOPHILS # (AUTO) 0.1 10^3/uL (0.0-0.3); EOSINOPHILS % (AUTO) 1 % (0-10); HEMATOCRIT 40 % (35-52); HEMOGLOBIN 13.5 g/dL (11.5-16.0); LYMPHOCYTES # (AUTO) 1.5 10^3/uL (1.0-4.0); LYMPHOCYTES % (AUTO) 13 % (12-44); MEAN CORPUSCULAR HEMOGLOBIN 31 pg (25-34); MEAN CORPUSCULAR HGB CONC 34 g/dL (32-36); MEAN CORPUSCULAR VOLUME 93 fL (80-99); MEAN PLATELET VOLUME 10.3 fL (9.0-12.2); MONOCYTES # (AUTO) 0.7 10^3/uL (0.0-1.0); MONOCYTES % (AUTO) 6 % (0-12); NEUTROPHILS # (AUTO) 9.6 10^3/uL (1.8-7.8); NEUTROPHILS % (AUTO) 81 % (42-75)
[2021-11-23 16:43] LABS: ALBUMIN 4.1 GM/DL (3.2-4.5); POTASSIUM 4.3 MMOL/L (3.6-5.0)
[2021-11-23 16:44] LABS: CALCIUM 8.7 MG/DL (8.5-10.1)
[2021-11-23 16:45] LABS: TOTAL PROTEIN 7.2 GM/DL (6.4-8.2)
[2021-11-23] MEDS ORDERED: ASPIRIN 81 MG CHEW (CHILDREN'S ASA) PO ONE (16:45)
[2021-11-23 16:47] LABS: BILIRUBIN,TOTAL 0.4 MG/DL (0.1-1.0)
[2021-11-23 16:48] LABS: INR 0.8 (0.8-1.4); PROTHROMBIN TIME PATIENT 11.9 SEC (12.2-14.7)
[2021-11-23 16:49] LABS: CREATININE SERUM 0.97 MG/DL (0.60-1.30)
[2021-11-23 16:52] LABS: MAGNESIUM 2.1 MG/DL (1.6-2.4)
--- NOTE | 2021-11-23 16:53 | Diagnostic Imaging Report ---
INDICATION: Chest pain. EXAMINATION: Portable chest at 4:51 p.m. FINDINGS: Heart size and pulmonary vascularity are normal. Lungs are clear. There are no effusions or pneumothoraces. IMPRESSION: No acute abnormalities in the chest. Dictated by: Dictated on workstation # [id number]
[2021-11-23] MEDS ORDERED: ONDANSETRON 4 MG/2 ML (SDV) Z0FRAN IVP ONE (17:00)
--- NOTE | 2021-11-23 17:46 | Diagnostic Imaging Report ---
PROCEDURE: CT head without contrast. TECHNIQUE: Multiple contiguous axial images were obtained through the brain without the use of intravenous contrast. Auto Exposure Controls were utilized during the CT exam to meet ALARA standards for radiation dose reduction. DATE: November 23, 2021. COMPARISON: CT head November 14, 2013. INDICATION: 66-year-old female, severe headache. FINDINGS: The ventricles and cerebral spinal fluid spaces are of normal size and configuration for the patient's age. There is no mass effect or midline shift. There is no acute intracranial hemorrhage. There is no abnormal extra-axial fluid collection. The visualized portions of the paranasal sinuses, mastoid air cells and middle ears are well aerated. IMPRESSION: No identified acute intracranial abnormality. Dictated by: Dictated on workstation # [id number]
[2021-11-23 18:30] VITALS: BP 168/76
[2021-11-23] MEDS ORDERED: KETOROLAC 30 MG/ML VIAL IVP ONE (18:30)
== END 2021-11-23 18:40 | disposition home or self-care (01) ==
LOC: EDUNIT# 15:57 → ER 15:59
DX: R51.9 Headache, unspecified (principal); E11.9 Type 2 diabetes mellitus without complications
CPT/HCPCS: 36415; 70450; 71045; 80053; 83690; 83735; 83874; 83880; 84484; 85025; 85379; 85610; 85730; 93005; 93041

== ENCOUNTER → 2021-11-28 | Outpatient (CLI) | payer MEDICARE, OTHER ==
--- NOTE | 2021-11-28 09:32 | Diagnostic Imaging Report ---
PROCEDURE: US DOPPLER ABD/COMPLETE INDICATION: SECONDARY HYPERTENSION TECHNIQUE: Multiple real-time grayscale sonographic images, color and duplex Doppler images were obtained of the urinary system. FINDINGS: Examination is significantly compromised by patient motion artifact overlying bowel gas. Aortic velocity: 101 cm/sec. RIGHT kidney: Size: 11.3 x 5.4 x 4.6 cm The right renal parenchyma and collecting system are grossly unremarkable. Low-density area centrally may be slightly prominent collecting system. The right renal artery is visualized in its proximal, mid and distal aspect. Maximum renal artery velocity: 134cm/sec Maximum renal artery/aortic ratio: 1.33 LEFT kidney: Size: 11.9 x 5.1 x 5.1 cm The left renal parenchyma and collecting system are grossly unremarkable. Low-density area centrally may be slightly prominent collecting system. The left renal artery is visualized in its proximal, mid and distal aspect. Maximum renal artery velocity: 190cm/sec Maximum renal artery/aortic ratio: 1.88 Bladder: Not imaged. IMPRESSION: 1. Limited but grossly unremarkable appearing renal ultrasound with doppler. (RA/AO ratios > 3.0 may suggest potential hemodynamically significant stenosis.) Dictated by: Dictated on workstation # [id number]
== END ==
LOC: RAD 07:30
PROVIDERS: ATTEND Internal Medicine Cardiovascular Disease
DX: I15.9 Secondary hypertension, unspecified (principal)
CPT/HCPCS: 93975

== ENCOUNTER → 2022-01-12 | Outpatient (CLI) | payer MEDICARE, OTHER ==
[~2022-01-12] MED LIST changes: +CATHETER FLUSH 10 ML SYR IV PRN; +HOLD METFORMIN - RECEIVED CONTRAST 20 ML VIAL IV SCH; +IOHEXOL 350 MG/ML 100 ML (OMNIPAQUE 350) VIAL IV ONE; +NS 100 ML (IVPB) BAG IV ONE
[2022-01-12 07:08] LABS: CREATININE SERUM 1.15 MG/DL (0.60-1.30)
--- NOTE | 2022-01-12 09:10 | Diagnostic Imaging Report ---
EXAMINATION: CT chest with intravenous contrast, CT abdomen and pelvis without and with intravenous contrast. TECHNIQUE: Pre and post intravenous contrast axial imaging of the abdomen and pelvis and post contrast axial imaging of the chest were performed. All CT scans use one or more of the following dose optimizing techniques: automated exposure control, MA and/or KvP adjustment based on patient size and exam type or iterative reconstruction. HISTORY: Pulmonary nodule, adrenal disorder. COMPARISON: 11/15/2020 and 01/27/2021 FINDINGS: There is no edema or pneumonia. No pleural effusion. No pneumothorax. There is a stable 1.1 x 1.4 cm right lower lobe nodule. There is a stable fissural lymph node along the major fissure. No new nodules are seen. There is no axillary or supraclavicular lymphadenopathy. There is no mediastinal lymphadenopathy. Heart size is normal. There are no coronary artery calcifications. No pericardial effusion. Aorta is normal in caliber. The liver is normal without focal lesion. There is no biliary ductal dilation. Gallbladder is surgically absent. No Pancreas is normal. Spleen is normal. Adrenal glands are normal. The kidneys are normal. There is no hydronephrosis. Urinary bladder is normal. Bowel is normal in caliber without obstruction or inflammation. There has been rectosigmoid resection. No free fluid or air. No abdominal or pelvic lymphadenopathy. Aorta is normal in caliber without aneurysm. There are no suspicious osseus lesions. There has been a left sacroiliac fixation. There is a stable bone island in T12. IMPRESSION: 1. Stable pulmonary nodules. No specific follow-up needed. 2. Normal adrenal glands. Dictated by: Dictated on workstation # [id number]
== END ==
LOC: RAD 07:30
PROVIDERS: ATTEND Family Medicine
DX: R91.8 Other nonspecific abnormal finding of lung field (principal); R06.00 Dyspnea, unspecified; R19.7 Diarrhea, unspecified; N23 Unspecified renal colic; R10.11 Right upper quadrant pain
CPT/HCPCS: 36415; 71260; 74178; 82565; 84520

== ENCOUNTER → 2022-09-20 | Outpatient (CLI) | payer MEDICARE, OTHER ==
[~2022-09-20] MED LIST changes: -CATHETER FLUSH 10 ML SYR IV PRN; -HOLD METFORMIN - RECEIVED CONTRAST 20 ML VIAL IV SCH; -IOHEXOL 350 MG/ML 100 ML (OMNIPAQUE 350) VIAL IV ONE; -NS 100 ML (IVPB) BAG IV ONE
== END ==
LOC: CARD 14:11
PROVIDERS: ATTEND Family Medicine
DX: I49.9 Cardiac arrhythmia, unspecified (principal)
CPT/HCPCS: 93005; 93242

== ENCOUNTER 2022-12-22 15:38 | Emergency (ER) | payer MEDICARE, OTHER ==
[~2022-12-22] VITALS: Ht 170 cm; Wt 83.0 kg
[2022-12-22 16:14] LABS: BASOPHILS % (AUTO) 1 % (0-10); EOSINOPHILS % (AUTO) 1 % (0-10); HEMATOCRIT 44 % (35-52); HEMOGLOBIN 15.1 g/dL (11.5-16.0); LYMPHOCYTES # (AUTO) 2.7 10^3/uL (1.0-4.0); LYMPHOCYTES % (AUTO) 30 % (12-44); MEAN CORPUSCULAR HEMOGLOBIN 32 pg (25-34); MEAN CORPUSCULAR HGB CONC 34 g/dL (32-36); MEAN CORPUSCULAR VOLUME 92 fL (80-99); MEAN PLATELET VOLUME 9.7 fL (9.0-12.2); MONOCYTES # (AUTO) 0.6 10^3/uL (0.0-1.0); MONOCYTES % (AUTO) 7 % (0-12); NEUTROPHILS # (AUTO) 5.4 10^3/uL (1.8-7.8); NEUTROPHILS % (AUTO) 61 % (42-75); PLATELET COUNT 302 10^3/uL (130-400); WHITE BLOOD COUNT 8.8 10^3/uL (4.3-11.0)
[2022-12-22] MEDS ORDERED: KETOROLAC 30 MG/ML VIAL IVP ONE (16:15)
[2022-12-22] MEDS ORDERED: ONDANSETRON 4 MG/2 ML (SDV) Z0FRAN IVP ONE (16:15)
--- NOTE | 2022-12-22 16:16 | ED Abdominal Pain ---
General Chief Complaint: Abdominal/GI Problems Stated Complaint: LEFT SIDE PAIN Nursing Triage Note: PT AMB TO TRIAGE, PT CO OF L SIDED ABD PAIN STARTED APPROX 1 WEEK AGO. RATES PAIN 7/10 WORSE AT TIMES. PT CO OF NAUSEA. PT WAS SEEN AT [facility] AND HAD CT SCAN TODAY Source of Information: Patient Exam Limitations: No Limitations History of Present Illness Date Seen by Provider: December 22, 2022 Time Seen by Provider: 16:01 Initial Comments 67-year-old female presents to the ER with complaints of left flank pain for the past week. She states the pain started out mild, and then became severe this Sunday and . She reports pain is constant, but states at times it becomes more intense. She reports pain when taking deep breath. She was seen at the [facility] clinic this morning, they did a noncontrast CT which only showed a small accessory spleen. Negative for kidney stones. [facility] also performed a urinalysis which only showed 3+ glucose, negative for RBC. She reports she had a low-grade temperature of 99.8 last night. Denies fevers today. Denies chest pain, shortness of air, abdominal pain, though she does report pain sometimes radiates into abdomen. Allergies and Home Medications Allergies Coded Allergies: Penicillins (Verified Allergy, Unknown, 11/08/13) clarithromycin (Verified Allergy, Unknown, 01/30/18) Patient as tolerated azithromycin gluten (Verified Allergy, Unknown, 11/10/13) metoclopramide (Unverified Allergy, Unknown, 11/03/15) piroxicam (Verified Allergy, Unknown, Pt has received Ketorolac w/o issue, 01/29/18) sulfacetamide sodium (Verified Allergy, Unknown, 11/08/13) Patient Home Medication List Home Medication List Reviewed: Yes Bisoprolol Fumarate (Bisoprolol Fumarate) 10 Mg Tablet, 10 MG PO BID, (Reported) Entered as Reported by: ZAHIDA TRIVEDI on 01/29/18 1531 Cefdinir (Cefdinir) 300 Mg Capsule, 300 MG PO BID Prescribed by: REID ANN on 01/31/21 1246 Cholecalciferol (Vitamin D3) (Vitamin D3) 125 Mcg Capsule, 125 MCG PO HS, (Reported) Entered as Reported by: DOREEN HENRY on 01/27/21 1437 Cyanocobalamin (Cyanocobalamin Injection) 1,000 Mcg/Ml Inj, 1,000 MCG IM EVERY 2 MONTHS, (Reported) Entered as Reported by: DOREEN HENRY on 01/27/21 143 Duloxetine HCl (Duloxetine HCl) 60 Mg Capsule.dr, 60 MG PO HS, (Reported) Entered as Reported by: ZAHIDA TRIVEDI on 01/29/18 1518 Empagliflozin/Linagliptin (Glyxambi 25 mg-5 mg Tablet) 1 Each Tablet, 1 EA PO DAILY, (Reported) Entered as Reported by: DOREEN HENRY on 01/27/21 143 Ergocalciferol (Vitamin D2) (Vitamin D2) 1,250 Mcg Capsule, 1,250 MCG PO SAT, (Reported) Entered as Reported by: DOREEN HENRY on 01/27/21 143 Estradiol (Estradiol Patch Twice Weekly 0.1mg/hr) 1 Each Patch.tdsw, 1 PATCH TD TWICE WEEKLY, (Reported) Entered as Reported by: DOREEN HENRY on 01/27/21 143 Fexofenadine HCl (Reyna Allergy) 180 Mg Tablet, 180 MG PO DAILY, (Reported) Entered as Reported by: DOREEN HENRY on 01/27/21 143 Glipizide (Glipizide) 5 Mg Tablet, 5 MG PO DAILY, (Reported) Entered as Reported by: DOREEN HENRY on 01/27/21 143 Hydrocodone/Acetaminophen (Hydrocodone-Acetamin 5-325 mg) 1 Each Tablet, 1-2 TAB PO Q8H PRN for PAIN-MODERATE (5-7), (Reported) Entered as Reported by: DOREEN HNERY on 01/27/21 143 Levothyroxine Sodium (Tirosint) 88 Mcg Capsule, 88 MCG PO DAILY, (Reported) Entered as Reported by: DOREEN HENRY on 01/27/21 143 Liothyronine Sodium (Liothyronine Sodium) 5 Mcg Tablet, 5 MCG PO DAILY, (Reported) Entered as Reported by: ZAHIDA TRIVEDI on 01/29/18 1531 Metronidazole (Flagyl) 500 Mg Tablet, 500 MG PO TID Prescribed by: REID ANN on 01/31/21 1246 Pantoprazole Sodium (Pantoprazole Sodium) 40 Mg Tablet.dr, 40 MG PO HS, (Reported) Entered as Reported by: ZAHIDA TRIVEDI on 01/29/18 1518 Polyethylene Glycol 3350 (Miralax) 17 Gm Powd.pack, 17 GM PO BID, (Reported) Entered as Reported by: DOREEN HENRY on 01/27/21 1437 Valsartan (Valsartan) 320 Mg Tablet, 320 MG PO DAILY, (Reported) Entered as Reported by: DOREEN HENRY on 01/27/21 1437 Review of Systems Review of Systems Constitutional: see HPI Past Vupvpgf-[id number]-[id number] Hx Patient Social History Tobacco Use?: No Substance use?: No Alcohol Use?: No Pt feels they are or have been: No Immunizations Up To Date Tetanus Booster (TDap): Less than 5yrs PED Vaccines UTD: Yes Influenza Vaccine Up-to-Date: Yes; Up-to-Date First/Initial COVID19 Vaccinat: YES Second COVID19 Vaccination Josue: YES Third COVID19 Vaccination Date: YES Seasonal Allergies Seasonal Allergies: No Past Medical History Surgery/Hospitalization HX: T AND A , REFLUX, GB, NECK AND BACK SURG, COLON RESECTION, TUMOR REMOVED FROM L KIDNEY Surgeries: Yes Appendectomy, Breast, Cardiac, Gallbladder, Hysterectomy, Oophorectomy, Orthopedic, Thyroidectomy, Tonsillectomy Respiratory: Yes Asthma Currently Using CPAP: No Currently Using BIPAP: No Cardiac: Yes (mitral valve prolapse, heart caths no stents) Coronary Artery Disease, Heart Attack, Valvular Heart Disease Neurological: Yes Reproductive Disorders: Yes (TOTAL HYSTERECTOMY) Female Reproductive Disorders: Menstrual Problems, Endometriosis, 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: Hysterectomy Sexually Transmitted Disease: No HIV/AIDS: No Kidney Infection, Kidney Stones, UTI-Chronic Gastrointestinal: Yes (CHRONIC ABDOMINAL PAIN ) Gastroesophageal Reflux, Crohns Disease, Diverticulosis, Polyps, Hiatal Hernia, Ulcer, Gall Bladder Disease, Irritable Bowel Musculoskeletal: Yes (ANKLYLOSING SPONDYLITIS) Degenerate Disk Disease, Arthritis, Chronic Back Pain Endocrine: Yes Hypothyroidsim, Lupus Loss of Vision: Denies Hearing Impairment: Denies Cancer: No Psychosocial: No Integumentary: Yes (STAPH INFECTIONS) Blood Disorders: No Adverse Reaction/Blood Tranf: No Family Medical History Family history: Cardiovascular disease Family history: Diabetes mellitus 03 MOTHER 09 BROTHER Family history: Glaucoma 03 MOTHER Family history: Thyroid disorder 03 MOTHER Heart disease 03 FATHER (AORTIC VALVE REPLACED) No Pertinent Family Hx Physical Exam Vital Signs Vital Signs - First Documented 12/22/22 12/22/22 15:40 18:38 Temp 36.5 Pulse 61 Resp 18 B/P (MAP) 157/70 (99) Pulse Ox 99 O2 Delivery Room Air Capillary Refill : Less Than 3 Seconds Height/Weight/BMI Height: 5'6.00" Weight: 182lbs. 0.0oz. 82.243905qm; 28.00 BMI Method:Stated General Appearance: WD/WN, mild distress Neck: supple, normal inspection Respiratory: lungs clear, normal breath sounds, no respiratory distress, no accessory muscle use Cardiovascular: regular rate, rhythm Gastrointestinal: normal bowel sounds, non tender, soft Extremities: normal range of motion, normal inspection Back: no vertebral tenderness, other (Tenderness on left side) Neurologic/Psychiatric: alert, normal mood/affect Skin: normal color, warm/dry Progress/Results/Core Measures Results/Orders Lab Results Laboratory Tests Test 12/22/22 06:01 12/22/22 16:27 Range/Units White Blood Count 8.8 4.3-11.0 10^3/uL Red Blood Count 4.75 3.80-5.11 10^6/uL Hemoglobin 15.1 11.5-16.0 g/dL Hematocrit 44 35-52 % Mean Corpuscular Volume 92 80-99 fL Mean Corpuscular Hemoglobin 32 25-34 pg Mean Corpuscular Hemoglobin Concent 34 32-36 g/dL Red Cell Distribution Width 13.6 10.0-14.5 % Platelet Count 302 130-400 10^3/uL Mean Platelet Volume 9.7 9.0-12.2 fL Immature Granulocyte % (Auto) 1 % Neutrophils (%) (Auto) 61 42-75 % Lymphocytes (%) (Auto) 30 12-44 % Monocytes (%) (Auto) 7 0-12 % Eosinophils (%) (Auto) 1 0-10 % Basophils (%) (Auto) 1 0-10 % Neutrophils # (Auto) 5.4 1.8-7.8 10^3/uL Lymphocytes # (Auto) 2.7 1.0-4.0 10^3/uL Monocytes # (Auto) 0.6 0.0-1.0 10^3/uL Eosinophils # (Auto) 0.0 0.0-0.3 10^3/uL Basophils # (Auto) 0.0 0.0-0.1 10^3/uL Immature Granulocyte # (Auto) 0.0 0.0-0.1 10^3/uL Sodium Level 136 135-145 MMOL/L Potassium Level 3.2 L 3.6-5.0 MMOL/L Chloride Level 98 98-107 MMOL/L Carbon Dioxide Level 25 21-32 MMOL/L Anion Gap 13 5-14 MMOL/L Blood Urea Nitrogen 19 H 7-18 MG/DL Creatinine 1.17 0.60-1.30 MG/DL Estimat Glomerular Filtration Rate 51 BUN/Creatinine Ratio 16 Glucose Level 77 70-105 MG/DL Calcium Level 9.4 8.5-10.1 MG/DL Corrected Calcium 8.5-10.1 MG/DL Total Bilirubin 0.4 0.1-1.0 MG/DL Aspartate Amino Transf (AST/SGOT) 19 5-34 U/L Alanine Aminotransferase (ALT/SGPT) 24 0-55 U/L Alkaline Phosphatase 57 40-136 U/L Total Protein 8.5 H 6.4-8.2 GM/DL Albumin 4.8 H 3.2-4.5 GM/DL Amylase Level 63 25-125 U/L Lipase 86 H 8-78 U/L Urine Color YELLOW Urine Clarity CLEAR Urine pH 6.0 5-9 Urine Specific [place] <=1.005 1.016-1.022 Urine Protein NEGATIVE NEGATIVE Urine Glucose (UA) 1+ H NEGATIVE Urine Ketones NEGATIVE NEGATIVE Urine Nitrite NEGATIVE NEGATIVE Urine Bilirubin NEGATIVE NEGATIVE Urine Urobilinogen 0.2 < = 1.0 MG/DL Urine Leukocyte Esterase NEGATIVE NEGATIVE Urine RBC (Auto) NEGATIVE NEGATIVE Urine RBC NONE /HPF Urine WBC NONE /HPF Urine Squamous Epithelial Cells 0-2 /HPF Urine Crystals NONE /LPF Urine Bacteria NEGATIVE /HPF Urine Casts NONE /LPF Urine Mucus NEGATIVE /LPF Urine Culture Indicated NO My Orders Orders - MILTON JAMES APRN Ed Iv/Invasive Line Start (12/22/22 16:01) Comprehensive Metabolic Panel (12/22/22 16:08) Lipase (12/22/22 16:08) Amylase (12/22/22 16:08) Cbc With Automated Diff (12/22/22 16:08) Ua Culture If Indicated (12/22/22 16:08) Ct Angio Chest/Abd W(R/O Ad) (12/22/22 16:08) Ketorolac Injection (Toradol Injection) (12/22/22 16:15) Ondansetron Injection (Zofran Injectio (12/22/22 16:15) Iohexol Injection (Omnipaque 350 Mg/Ml 1 (12/22/22 16:30) Received Contrast (Hold Metformin- Contr (12/22/22 16:30) Ns (Ivpb) (Sodium Chloride 0.9% Ivpb Bag (12/22/22 16:30) Ns Iv 1000 Ml (Sodium Chloride 0.9%) (12/22/22 17:00) Ns Iv 1000 Ml (Sodium Chloride 0.9%) (12/22/22 17:45) Potassium Chloride (Tablet) (K Dur Table (12/22/22 17:45) Medications Given in ED Vital Signs/I&O 12/22/22 12/22/22 15:40 18:38 Temp 36.5 36.1 Pulse 61 77 Resp 18 18 B/P (MAP) 157/70 (99) 140/81 Pulse Ox 99 100 O2 Delivery Room Air 12/23/22 00:00 Intake Total 2000 ml Balance 2000 ml Blood Pressure Mean: 99 Progress Progress Note : Progress Note Patient seen and evaluated, resting in bed, mild distress. Based on exam and symptoms, work-up initiated including CBC, CMP, amylase, lipase, UA, CT angio chest and abdomen to rule out dissection. Toradol and Zofran ordered. Patient requesting not to have narcotic pain medicine so that she can drive home. Labs and CT reviewed. .CBC grossly normal, CMP shows decreased potassium 3.2, oral potassium ordered. BUN slightly elevated at 19, creatinine 1.17, GFR 51. Patient has chronic kidney disease, creatinine and GFR are similar to previous labs from 01/2022. Lipase slightly elevated 86. Albumin slightly elevated 4.8. 2 liters of fluids ordered due to giving contrast. CT shows no acute vascular abnormality. Mild diffuse calcified and noncalcified aortic atherosclerotic disease, no evidence of dissection or aneurysm. Probable hemodynamically significant stenosis of bilateral renal arteries. Hepatic stenosis. Right-sided pulmonary nodules that are stable from previous exams. Results discussed with patient. Patient reports she feels better after toradol. Patient agreeable to discharge at this time. Patient given strict return precautions. Diagnostic Imaging Diagonstic Imaging: CT Plain Films/CT/US/NM/MRI: chest, abdomen Comments [facility] [place], [place] NAME: LUPE AYALA [facility] REC#: [id number] PT STATUS: REG ER : 1955 PHYSICIAN: MILTON JAMES [employer] IN[employer] ADMIT DATE: 12/22/22/ER Signed Date of Exam:12/22/22 CT ANGIO CHEST/ABD W(R/O AD) INDICATION: Left-sided abdominal pain. Nausea. COMPARISON: 01/12/2022. TECHNIQUE: Noncontrast CT of the chest and abdomen was performed. This was followed by postcontrast CTA. Contrast bolus was injected intravenously and timed for optimal opacification of the arterial structures. Multiplanar and 3D reformats were also created and reviewed. Auto Exposure Controls were utilized during the CT exam to meet ALARA standards for radiation dose reduction. FINDINGS: CTA CHEST: Thoracic aorta is normal in course and caliber. There is mild scattered noncalcified atherosclerotic disease, but by NASCET criteria, there is no focal significant stenosis. There is no evidence of dissection or aneurysm. Heart size is within normal limits. There is no large pericardial effusion. Main pulmonary arterial trunk is slightly prominent at 3.3 cm in diameter. No pathologically enlarged or morphologically abnormal adenopathy is seen within the mediastinum, josafat, nor axilla. Evaluation of the lung la demonstrates mild dependent atelectasis. Pulmonary nodule of the superior segment of the right lower lobe is again identified. It measures 1.4 x 1.3 cm on today's exam. This is stable compared to 1.4 x 1.4 cm previously. Intrafissural nodule is also identified slightly more inferiorly and anteriorly and is stable as well. No new suspicious pulmonary nodule or mass is seen. There is no focal consolidation, large effusion, nor pneumothorax. Osseous structures show no acute abnormalities. No lytic or blastic bony lesions are identified. CTA ABDOMEN: There is mild scattered calcified and noncalcified aortic atherosclerosis, but no focal significant stenosis nor evidence of dissection or aneurysm. Bulky calcifications are noted at the origin of the celiac trunk, but there is no focal significant stenosis. Celiac trunk and superior mesenteric artery and their major branches are widely patent. There are two renal arteries on the right and a single renal artery on the left. There is noncalcified atherosclerotic disease of the origins of the bilateral main renal arteries. This results in 40 to 50% stenosis of the left renal artery and probable greater than 80% stenosis of the dominant renal artery on the right. Liver is diffusely hypodense on the noncontrast portion of the exam consistent with hepatic steatosis. No suspicious hepatic masses are seen. The kidneys, adrenal glands, spleen, and pancreas have a normal CTA appearance. Included small bowel loops are nondilated. Moderate air and stool is noted within the included portions of the colon. Cecum is not entirely included in the oewly-ye-srsf, nor is the appendix. There is no loculated fluid collection, free fluid, or free air. No abnormal adenopathy is seen. Osseous structures show no acute abnormalities. IMPRESSION: 1. No acute vascular abnormality of the chest or abdomen. 2. Mild diffuse calcified and noncalcified aortic atherosclerotic disease, but no evidence of dissection nor aneurysm 3. Probable hemodynamically significant stenosis of the bilateral renal arteries, right greater than left. Correlation with history of hypertension is advised. 4. Hepatic steatosis. 5. Right-sided pulmonary nodules. Again, these are stable compared to 01/12/2022 and have been shown to be stable and benign on prior exams. Dictated by: Dictated on workstation # [id number] Dict: 12/22/22 1652 Trans: 12/22/221711 [id number] [id number] Interpreted by: CANDE MCCARTY MD Electronically signed by: CANDE MCCARTY MD 12/22/221711 Departure Impression Primary Impression: Left flank pain Disposition: 01 HOME, SELF-CARE Condition: Stable Departure-Patient Inst. Decision time for Depature: 18:33 Referrals: REID ANN DO (PCP/Family) Primary Care Physician Patient Instructions: Flank Pain Add. Discharge Instructions: Follow-up with your primary care provider. Follow-up with cardiology regarding the renal artery stenosis, they may perform a renal artery stent. Take your pain medication as prescribed. Return if pain continues or gets worse, recurrent vomiting, develop a fever or rash, or any other new, concerning, or worsening symptoms. All discharge instructions reviewed with patient and/or family. Voiced understanding. MILTON JAMES APRN December 22, 2022 16:16
[2022-12-22 16:17] LABS: ALBUMIN 4.8 GM/DL (3.2-4.5); CHLORIDE 98 MMOL/L (98-107); POTASSIUM 3.2 MMOL/L (3.6-5.0); SODIUM 136 MMOL/L (135-145)
[2022-12-22 16:18] LABS: AMYLASE 63 U/L (25-125); CALCIUM 9.4 MG/DL (8.5-10.1)
[2022-12-22 16:19] LABS: GLUCOSE 77 MG/DL (70-105); TOTAL PROTEIN 8.5 GM/DL (6.4-8.2)
[2022-12-22 16:20] LABS: CARBON DIOXIDE 25 MMOL/L (21-32)
[2022-12-22 16:21] LABS: BILIRUBIN,TOTAL 0.4 MG/DL (0.1-1.0)
[2022-12-22 16:23] LABS: ALKALINE PHOSPHATASE 57 U/L (40-136); CREATININE SERUM 1.17 MG/DL (0.60-1.30); GFR ESTIMATED 51
[2022-12-22 16:24] LABS: BUN/CREATININE RATIO 16
[2022-12-22 16:26] LABS: ALANINE AMINOTRANSFERASE 24 U/L (0-55); LIPASE 86 U/L (8-78)
[2022-12-22] MEDS ORDERED: NS 100 ML (IVPB) BAG IV ONE (16:30)
[2022-12-22] MEDS ORDERED: IOHEXOL 350 MG/ML 100 ML (OMNIPAQUE 350) VIAL IV ONE (16:30)
[2022-12-22] MEDS ORDERED: HOLD METFORMIN - RECEIVED CONTRAST 20 ML VIAL IV SCH (16:30)
[2022-12-22 16:33] LABS: BILIRUBIN,URINE NEGATIVE (NEGATIVE); CLARITY,URINE CLEAR; COLOR,URINE YELLOW; GLUCOSE, URINE (UA) 1+ (NEGATIVE); KETONES,URINE NEGATIVE (NEGATIVE); LEUKOCYTE ESTERASE ,URINE NEGATIVE (NEGATIVE); NITRITE,URINE NEGATIVE (NEGATIVE); PROTEIN,URINE NEGATIVE (NEGATIVE)
[2022-12-22 16:39] LABS: BACTERIA,URINE NEGATIVE /HPF; SQUAMOUS EPITHELIAL CELL,UR 0-2 /HPF
[2022-12-22] MEDS ORDERED: NS IV 1000 ML 1,000 ML IV SCH ×2 (17:00→17:45)
--- NOTE | 2022-12-22 17:13 | Diagnostic Imaging Report ---
INDICATION: Left-sided abdominal pain. Nausea. COMPARISON: 01/12/2022. TECHNIQUE: Noncontrast CT of the chest and abdomen was performed. This was followed by postcontrast CTA. Contrast bolus was injected intravenously and timed for optimal opacification of the arterial structures. Multiplanar and 3D reformats were also created and reviewed. Auto Exposure Controls were utilized during the CT exam to meet ALARA standards for radiation dose reduction. FINDINGS: CTA CHEST: Thoracic aorta is normal in course and caliber. There is mild scattered noncalcified atherosclerotic disease, but by NASCET criteria, there is no focal significant stenosis. There is no evidence of dissection or aneurysm. Heart size is within normal limits. There is no large pericardial effusion. Main pulmonary arterial trunk is slightly prominent at 3.3 cm in diameter. No pathologically enlarged or morphologically abnormal adenopathy is seen within the mediastinum, josafat, nor axilla. Evaluation of the lung la demonstrates mild dependent atelectasis. Pulmonary nodule of the superior segment of the right lower lobe is again identified. It measures 1.4 x 1.3 cm on today's exam. This is stable compared to 1.4 x 1.4 cm previously. Intrafissural nodule is also identified slightly more inferiorly and anteriorly and is stable as well. No new suspicious pulmonary nodule or mass is seen. There is no focal consolidation, large effusion, nor pneumothorax. Osseous structures show no acute abnormalities. No lytic or blastic bony lesions are identified. CTA ABDOMEN: There is mild scattered calcified and noncalcified aortic atherosclerosis, but no focal significant stenosis nor evidence of dissection or aneurysm. Bulky calcifications are noted at the origin of the celiac trunk, but there is no focal significant stenosis. Celiac trunk and superior mesenteric artery and their major branches are widely patent. There are two renal arteries on the right and a single renal artery on the left. There is noncalcified atherosclerotic disease of the origins of the bilateral main renal arteries. This results in 40 to 50% stenosis of the left renal artery and probable greater than 80% stenosis of the dominant renal artery on the right. Liver is diffusely hypodense on the noncontrast portion of the exam consistent with hepatic steatosis. No suspicious hepatic masses are seen. The kidneys, adrenal glands, spleen, and pancreas have a normal CTA appearance. Included small bowel loops are nondilated. Moderate air and stool is noted within the included portions of the colon. Cecum is not entirely included in the [id number], nor is the appendix. There is no loculated fluid collection, free fluid, or free air. No abnormal adenopathy is seen. Osseous structures show no acute abnormalities. IMPRESSION: 1. No acute vascular abnormality of the chest or abdomen. 2. Mild diffuse calcified and noncalcified aortic atherosclerotic disease, but no evidence of dissection nor aneurysm 3. Probable hemodynamically significant stenosis of the bilateral renal arteries, right greater than left. Correlation with history of hypertension is advised. 4. Hepatic steatosis. 5. Right-sided pulmonary nodules. Again, these are stable compared to 01/12/2022 and have been shown to be stable and benign on prior exams. Dictated by: Dictated on workstation # [id number]
[2022-12-22] MEDS ORDERED: KCL 20 MEQ TAB (K-DUR) PO ONE (17:45)
[2022-12-22 18:38] VITALS: BP 140/81
== END 2022-12-22 18:38 | disposition home or self-care (01) ==
LOC: EDUNIT# 15:38 → ER 15:40
DX: R10.9 Unspecified abdominal pain (principal); R11.0 Nausea; E87.6 Hypokalemia; I70.0 Atherosclerosis of aorta; Z87.19 Personal history of other diseases of the digestive system; Z90.49 Acquired absence of other specified parts of digestive tract
CPT/HCPCS: 36415; 71275; 74175; 80053; 81000; 82150; 83690; 85025

== ENCOUNTER 2023-01-06 08:47 | Emergency (ER) | payer MEDICARE, OTHER ==
[2023-01-06 09:29] LABS: BASOPHILS % (AUTO) 1 % (0-10); EOSINOPHILS % (AUTO) 0 % (0-10); HEMATOCRIT 44 % (35-52); HEMOGLOBIN 14.9 g/dL (11.5-16.0); LYMPHOCYTES # (AUTO) 1.6 10^3/uL (1.0-4.0); LYMPHOCYTES % (AUTO) 21 % (12-44); MEAN CORPUSCULAR HEMOGLOBIN 31 pg (25-34); MEAN CORPUSCULAR HGB CONC 34 g/dL (32-36); MEAN CORPUSCULAR VOLUME 93 fL (80-99); MEAN PLATELET VOLUME 9.7 fL (9.0-12.2); MONOCYTES # (AUTO) 0.6 10^3/uL (0.0-1.0); MONOCYTES % (AUTO) 8 % (0-12); NEUTROPHILS # (AUTO) 5.4 10^3/uL (1.8-7.8); NEUTROPHILS % (AUTO) 70 % (42-75); PLATELET COUNT 288 10^3/uL (130-400); WHITE BLOOD COUNT 7.7 10^3/uL (4.3-11.0)
[2023-01-06 09:39] LABS: ALBUMIN 4.3 GM/DL (3.2-4.5); POTASSIUM 3.9 MMOL/L (3.6-5.0)
[2023-01-06 09:40] LABS: CALCIUM 9.7 MG/DL (8.5-10.1)
[2023-01-06 09:42] LABS: TOTAL PROTEIN 7.6 GM/DL (6.4-8.2)
[2023-01-06 09:43] LABS: BILIRUBIN,TOTAL 0.4 MG/DL (0.1-1.0)
[2023-01-06 09:45] LABS: CREATININE SERUM 1.24 MG/DL (0.60-1.30)
--- NOTE | 2023-01-06 09:50 | Diagnostic Imaging Report ---
INDICATION: Right-sided pleuritic chest pain with inspiration. Recent placement of stents in the kidneys. TECHNIQUE: Two view chest at 9:33 AM. CORRELATION STUDY: 11/23/2021. FINDINGS: The heart size, mediastinal configuration, and pulmonary vasculature are within normal limits. The lungs are clear with no consolidating infiltrate. There is no significant pleural effusion or pneumothorax. Questioned small linear metallic density over the base of the neck on the frontal projection. Multiple surgical clips in the upper abdomen. IMPRESSION: Negative for acute abnormality of the chest. Dictated by: Dictated on workstation # [id number]
[2023-01-06 10:00] LABS: BILIRUBIN,URINE NEGATIVE (NEGATIVE); CLARITY,URINE CLEAR; COLOR,URINE YELLOW; GLUCOSE, URINE (UA) 3+ (NEGATIVE); KETONES,URINE NEGATIVE (NEGATIVE); LEUKOCYTE ESTERASE ,URINE NEGATIVE (NEGATIVE); NITRITE,URINE NEGATIVE (NEGATIVE); PH,URINE 5.5 (5-9); PROTEIN,URINE NEGATIVE (NEGATIVE)
[2023-01-06 10:06] LABS: BACTERIA,URINE LARGE /HPF; RBC,URINE 0-2 /HPF
[2023-01-06] MEDS ORDERED: fentaNYL INJ 100 MCG/2 ML AMP IVP ONE (10:45)
[2023-01-06] MEDS ORDERED: LACTATED RINGERS 1,000 ML IV ONE (10:45)
--- NOTE | 2023-01-06 11:39 | ED General ---
General Chief Complaint: Back Problems Stated Complaint: RIGHT SIDED LOW BACK/ABD PAIN PTOP Nursing Triage Note: PT AMB TO RM 8 WITH C/O R FLANK PAIN AFTER RECENT BILAT RENAL ARTERY STENTS AT [facility]. PT SEEN AT [facility] THIS AM AND SENT HERE FOR FURTHER TESTING Source of Information: Patient Exam Limitations: No Limitations History of Present Illness Date Seen by Provider: Jan 06, 2023 Time Seen by Provider: 08:54 Allergies and Home Medications Allergies Coded Allergies: Penicillins (Verified Allergy, Unknown, 11/08/13) clarithromycin (Verified Allergy, Unknown, 01/30/18) Patient as tolerated azithromycin gluten (Verified Allergy, Unknown, 11/10/13) metoclopramide (Unverified Allergy, Unknown, 11/03/15) piroxicam (Verified Allergy, Unknown, Pt has received Ketorolac w/o issue, 01/29/18) sulfacetamide sodium (Verified Allergy, Unknown, 11/08/13) Patient Home Medication List Bisoprolol Fumarate (Bisoprolol Fumarate) 10 Mg Tablet, 10 MG PO BID, (Reported) Entered as Reported by: ZAHIDA TRIVEDI on 01/29/18 1531 Cefdinir (Cefdinir) 300 Mg Capsule, 300 MG PO BID Prescribed by: REID ANN on 01/31/21 1246 Cholecalciferol (Vitamin D3) (Vitamin D3) 125 Mcg Capsule, 125 MCG PO HS, (Reported) Entered as Reported by: DOREEN HENRY on 01/27/21 1437 Cyanocobalamin (Cyanocobalamin Injection) 1,000 Mcg/Ml Inj, 1,000 MCG IM EVERY 2 MONTHS, (Reported) Entered as Reported by: DOREEN HENRY on 01/27/21 1437 Duloxetine HCl (Duloxetine HCl) 60 Mg Capsule.dr, 60 MG PO HS, (Reported) Entered as Reported by: ZAHIDA TRIVEDI on 01/29/18 1518 Empagliflozin/Linagliptin (Glyxambi 25 mg-5 mg Tablet) 1 Each Tablet, 1 EA PO DAILY, (Reported) Entered as Reported by: DOREEN HENRY on 01/27/21 1437 Ergocalciferol (Vitamin D2) (Vitamin D2) 1,250 Mcg Capsule, 1,250 MCG PO SAT, (Reported) Entered as Reported by: DOREEN HENRY on 01/27/21 1437 Estradiol (Estradiol Patch Twice Weekly 0.1mg/hr) 1 Each Patch.tdsw, 1 PATCH TD TWICE WEEKLY, (Reported) Entered as Reported by: DOREEN HENRY on 01/27/21 143 Fexofenadine HCl (Reyna Allergy) 180 Mg Tablet, 180 MG PO DAILY, (Reported) Entered as Reported by: DOREEN HENRY on 01/27/21 143 Glipizide (Glipizide) 5 Mg Tablet, 5 MG PO DAILY, (Reported) Entered as Reported by: DOREEN HENRY on 01/27/21 143 Hydrocodone/Acetaminophen (Hydrocodone-Acetamin 5-325 mg) 1 Each Tablet, 1-2 TAB PO Q8H PRN for PAIN-MODERATE (5-7), (Reported) Entered as Reported by: DOREEN HENRY on 01/27/21 143 Levothyroxine Sodium (Tirosint) 88 Mcg Capsule, 88 MCG PO DAILY, (Reported) Entered as Reported by: DOREEN HENRY on 01/27/21 143 Liothyronine Sodium (Liothyronine Sodium) 5 Mcg Tablet, 5 MCG PO DAILY, (Reported) Entered as Reported by: ZAHIDA TRIVEDI on 01/29/18 1531 Metronidazole (Flagyl) 500 Mg Tablet, 500 MG PO TID Prescribed by: REID ANN on 01/31/21 1246 Pantoprazole Sodium (Pantoprazole Sodium) 40 Mg Tablet.dr, 40 MG PO HS, (Reported) Entered as Reported by: ZAHIDA TRIVEDI on 01/29/18 1518 Polyethylene Glycol 3350 (Miralax) 17 Gm Powd.pack, 17 GM PO BID, (Reported) Entered as Reported by: DOREEN HENRY on 01/27/21 143 Valsartan (Valsartan) 320 Mg Tablet, 320 MG PO DAILY, (Reported) Entered as Reported by: DOREEN HENRY on 01/27/21 143 Past Reahlab-Mkjmje-Xsmhrv Hx Patient Social History Tobacco Use?: No Use of E-Cig and/or Vaping dev: No Substance use?: No Alcohol Use?: No Pt feels they are or have been: No Immunizations Up To Date Tetanus Booster (TDap): Less than 5yrs PED Vaccines UTD: Yes First/Initial COVID19 Vaccinat: YES Second COVID19 Vaccination Josue: YES Third COVID19 Vaccination Date: YES Seasonal Allergies Seasonal Allergies: No Past Medical History Surgery/Hospitalization HX: T AND A , REFLUX, GB, NECK AND BACK SURG, COLON RESECTION, TUMOR REMOVED FROM L KIDNEY, RENAL ARTERY STENT BILAT, THYROID SURGERY, BISI, APPY Surgeries: Yes Appendectomy, Breast, Cardiac, Gallbladder, Hysterectomy, Oophorectomy, Orthopedic, Thyroidectomy, Tonsillectomy Respiratory: Yes Asthma Currently Using CPAP: No Currently Using BIPAP: No Cardiac: Yes (mitral valve prolapse, heart caths no stents) Coronary Artery Disease, Heart Attack, Valvular Heart Disease Neurological: Yes Reproductive Disorders: Yes (TOTAL HYSTERECTOMY) Female Reproductive Disorders: Menstrual Problems, Endometriosis, Ovarian Cyst RN PAIN MANAGEMENT History: Hysterectomy Sexually Transmitted Disease: No HIV/AIDS: No Kidney Infection, Kidney Stones, UTI-Chronic Gastrointestinal: Yes (CHRONIC ABDOMINAL PAIN ) Gastroesophageal Reflux, Crohns Disease, Diverticulosis, Polyps, Hiatal Hernia, Ulcer, Gall Bladder Disease, Irritable Bowel Musculoskeletal: Yes (ANKLYLOSING SPONDYLITIS) Degenerate Disk Disease, Arthritis, Chronic Back Pain Endocrine: Yes Hypothyroidsim, Lupus Loss of Vision: Denies Hearing Impairment: Denies Cancer: No Psychosocial: No Integumentary: Yes (STAPH INFECTIONS) Blood Disorders: No Adverse Reaction/Blood Tranf: No Family Medical History Family history: Cardiovascular disease Family history: Diabetes mellitus 03 MOTHER 09 BROTHER Family history: Glaucoma 03 MOTHER Family history: Thyroid disorder 03 MOTHER Heart disease 03 FATHER (AORTIC VALVE REPLACED) No Pertinent Family Hx Physical Exam Vital Signs Vital Signs - First Documented 01/06/23 09:07 Temp 36.7 Pulse 65 Resp 14 B/P (MAP) 124/66 (85) Pulse Ox 97 O2 Delivery Room Air Capillary Refill : Height, Weight, BMI Height: 5'6.00" Weight: 182lbs. 0.0oz. 82.699301ay; 28.00 BMI Method:Stated Progress/Results/Core Measures Suspected Sepsis SIRS Temperature: Pulse: 65 Respiratory Rate: 14 Laboratory Tests 01/06/23 09:20: White Blood Count 7.7 Blood Pressure 124 /66 Mean: 85 Laboratory Tests 01/06/23 09:20: Creatinine 1.24, Platelet Count 288, Total Bilirubin 0.4 Results/Orders Lab Results Laboratory Tests Test 01/06/23 09:20 01/06/23 09:52 Range/Units White Blood Count 7.7 4.3-11.0 10^3/uL Red Blood Count 4.74 3.80-5.11 10^6/uL Hemoglobin 14.9 11.5-16.0 g/dL Hematocrit 44 35-52 % Mean Corpuscular Volume 93 80-99 fL Mean Corpuscular Hemoglobin 31 25-34 pg Mean Corpuscular Hemoglobin Concent 34 32-36 g/dL Red Cell Distribution Width 13.6 10.0-14.5 % Platelet Count 288 130-400 10^3/uL Mean Platelet Volume 9.7 9.0-12.2 fL Immature Granulocyte % (Auto) 0 % Neutrophils (%) (Auto) 70 42-75 % Lymphocytes (%) (Auto) 21 12-44 % Monocytes (%) (Auto) 8 0-12 % Eosinophils (%) (Auto) 0 0-10 % Basophils (%) (Auto) 1 0-10 % Neutrophils # (Auto) 5.4 1.8-7.8 10^3/uL Lymphocytes # (Auto) 1.6 1.0-4.0 10^3/uL Monocytes # (Auto) 0.6 0.0-1.0 10^3/uL Eosinophils # (Auto) 0.0 0.0-0.3 10^3/uL Basophils # (Auto) 0.0 0.0-0.1 10^3/uL Immature Granulocyte # (Auto) 0.0 0.0-0.1 10^3/uL D-Dimer 0.73 H 0.00-0.49 UG/ML Sodium Level 134 L 135-145 MMOL/L Potassium Level 3.9 3.6-5.0 MMOL/L Chloride Level 99 98-107 MMOL/L Carbon Dioxide Level 25 21-32 MMOL/L Anion Gap 10 5-14 MMOL/L Blood Urea Nitrogen 19 H 7-18 MG/DL Creatinine 1.24 0.60-1.30 MG/DL Estimat Glomerular Filtration Rate 47 BUN/Creatinine Ratio 15 Glucose Level 199 H 70-105 MG/DL Calcium Level 9.7 8.5-10.1 MG/DL Corrected Calcium 9.5 8.5-10.1 MG/DL Total Bilirubin 0.4 0.1-1.0 MG/DL Aspartate Amino Transf (AST/SGOT) 17 5-34 U/L Alanine Aminotransferase (ALT/SGPT) 22 0-55 U/L Alkaline Phosphatase 51 40-136 U/L C-Reactive Protein High Sensitivity 1.35 H 0.00-0.50 MG/DL Total Protein 7.6 6.4-8.2 GM/DL Albumin 4.3 3.2-4.5 GM/DL Urine Color YELLOW Urine Clarity CLEAR Urine pH 5.5 5-9 Urine Specific [place] 1.010 L 1.016-1.022 Urine Protein NEGATIVE NEGATIVE Urine Glucose (UA) 3+ H NEGATIVE Urine Ketones NEGATIVE NEGATIVE Urine Nitrite NEGATIVE NEGATIVE Urine Bilirubin NEGATIVE NEGATIVE Urine Urobilinogen 0.2 < = 1.0 MG/DL Urine Leukocyte Esterase NEGATIVE NEGATIVE Urine RBC (Auto) NEGATIVE NEGATIVE Urine RBC 0-2 /HPF Urine WBC 2-5 /HPF Urine Squamous Epithelial Cells 5-10 /HPF Urine Crystals NONE /LPF Urine Bacteria LARGE H /HPF Urine Casts NONE /LPF Urine Mucus NEGATIVE /LPF Urine Culture Indicated YES My Orders Orders - ALAN DEMPSEY MD Cbc With Automated Diff (01/06/23 09:04) Comprehensive Metabolic Panel (01/06/23 09:04) Hs C Reactive Protein (01/06/23 09:04) Ua Culture If Indicated (01/06/23 09:04) Ed Iv/Invasive Line Start (01/06/23 09:04) Chest Pa/Lat (2 View) (01/06/23 09:16) Urine Culture (01/06/23 09:52) Fibrin Degradation Products (01/06/23 10:32) Lactated Ringers (Lr 1000 Ml Iv Solution (01/06/23 10:45) Fentanyl Inj (Sublimaze Injection) (01/06/23 10:45) Ct Lou Chest/Noang Abd-Pelv W (01/06/23 11:36) Iohexol Injection (Omnipaque 350 Mg/Ml 1 (01/06/23 11:45) Received Contrast (Hold Metformin- Contr (01/06/23 11:45) Ns (Ivpb) (Sodium Chloride 0.9% Ivpb Bag (01/06/23 11:45) Ceftriaxone Pre-Mix (Rocephin Pre-Mix) (01/06/23 12:34) Medications Given in ED Current Medications Medications Dose Ordered Sig/Charmaine Route Start Time Stop Time Status Last Admin Dose Admin Fentanyl Citrate 50 mcg ONCE ONCE IVP 01/06/23 10:45 01/06/23 10:46 DC 01/06/23 10:50 50 MCG Lactated Ringer's 1,000 ml @ 0 mls/hr Q0M ONCE IV 01/06/23 10:45 01/06/23 10:46 DC 01/06/23 10:50 1,000 MLS/HR Vital Signs/I&O 01/06/23 09:07 Temp 36.7 Pulse 65 Resp 14 B/P (MAP) 124/66 (85) Pulse Ox 97 O2 Delivery Room Air Capillary Refill : Blood Pressure Mean: 85 Diagnostic Imaging Diagonstic Imaging: CT Plain Films/CT/US/NM/MRI: chest, abdomen, pelvis Comments NAME: LUPE [facility] REC#: [id number] PT STATUS: REG ER : 1955 PHYSICIAN: ALAN DEMPSEY MD ADMIT DATE: 01/06/23/ER Draft Date of Exam:01/06/23 CT LOU CHEST/NOANG ABD-PELV W INDICATION: Right-sided chest and abdominal pain. Renal artery stents. History of mass removed off the left kidney. EXAMINATION: CTA chest, abdomen and pelvis TECHNIQUE: Thin axial sections through the chest, abdomen, and pelvis was obtained following intravenous contrast bolus. Multiplanar MIP images were reconstructed and reviewed. All CT scans use one or more of the following dose optimizing techniques: automated exposure control, MA and/or KvP adjustment based on patient size and exam type or iterative reconstruction. COMPARISON: 01/12/2022. 12/22/2022. FINDINGS: CTA chest: No evidence of pulmonary emboli to the subsegmental pulmonary arteries. The thoracic aorta is normal without aneurysm or dissection. The heart size is prominent. No pericardial effusion is present. There is no mediastinal, hilar, or axillary lymphadenopathy. Stable nodule in the mid right lung measuring 1.3 cm. Smaller nodule just anterior to this is stable measuring 0.6 cm. No new suspicious pulmonary nodules are seen. Hazy opacities are seen in the dependent lungs. There are no focal areas of consolidation. No pneumothoraces are present. No central endobronchial obstructing lesions are identified. There are no pleural effusions. No acute osseous abnormalities. Bone island is seen in the T12 vertebral body. CTA ABDOMEN AND PELVIS: No evidence of aneurysm or dissection in the abdominal aorta. The celiac trunk, SMA, and WANDER are patent. Bilateral renal artery stents are seen with robust flow distal to the stents. No hydronephrosis or obstructing calculi. No solid renal mass is seen. No perinephric fat stranding. The urinary bladder is unremarkable. There is hepatomegaly with hepatic steatosis. The spleen is also prominent. No focal splenic or hepatic lesions. The portal vein is patent. The gallbladder is surgically absent. The pancreas and adrenal glands have a normal appearance. There is no pathologically enlarged mesenteric or retroperitoneal adenopathy. The bowel loops are nondilated. A moderate amount of stool is seen in the colon There is no free fluid or free air. No acute osseous abnormalities. There is no free air, loculated collection, or adenopathy in the pelvis. IMPRESSION: 1. No acute abnormalities in the chest, abdomen, or pelvis. No evidence of pulmonary emboli. No aneurysm or dissection in the thoracic or abdominal aorta. 2. Patent bilateral renal artery stents. No hydronephrosis or solid renal mass. No perinephric fat stranding. 3. Stable nodules in the mid right lung. No new suspicious nodules. Dependent atelectasis is seen bilaterally. 4. Hepatosplenomegaly with hepatic steatosis. No focal hepatic or splenic lesions. No ascites. 5. Cardiomegaly. Dictated on workstation # [id number] Dict: 01/06/23 1205 Trans: 01/06/23 1225 [id number] Interpreted by: DONNA YO DO Departure Impression Primary Impression: UTI (urinary tract infection) Qualified Codes: N39.0 - Urinary tract infection, site not specified Additional Impressions: Right sided abdominal pain Pleuritic chest pain History of stent insertion of renal artery Disposition: 01 HOME, SELF-CARE Condition: Stable Departure-Patient Inst. Decision time for Depature: 12:50 Referrals: REID ANN DO (PCP/Family) Primary Care Physician Patient Instructions: Abdominal Pain, Adult ED, Urinary tract infections in adults Add. Discharge Instructions: Drink plenty of clear liquids to stay well-hydrated. Complete your antibiotics as prescribed. Follow-up with your primary care provider on Sunday afternoon by phone to review urine culture results. Continue taking aspirin and Plavix as previously directed. You may continue taking hydrocodone as previously prescribed. Be aware that hydrocodone may cause drowsiness so do not drive, operate machinery, or make important decisions on hydrocodone. Hydrocodone may also cause constipation, so you may wish to use a stool softener such as Colace while on hydrocodone. Use Pyridium for urinary tract pain. Be aware this may cause your urine to look orange issue or reddish in appearance. Return to the ER if you have worsening symptoms despite following these instructions. All discharge instructions reviewed with patient and/or family. Voiced understanding. Scripts Phenazopyridine HCl (Pyridium) 200 Mg Tablet 1 TAB PO TID PRN for PAIN, #10 TAB Prov: ALAN DEMPSEY MD 01/06/23 Cefdinir (Cefdinir) 300 Mg Capsule 300 MG PO BID, #14 CAP 0 Refills Prov: ALAN DEMPSEY MD 01/06/23 ALAN DEMPSEY MD Jan 06, 2023 11:39
[2023-01-06] MEDS ORDERED: HOLD METFORMIN - RECEIVED CONTRAST 20 ML VIAL IV SCH (11:45)
[2023-01-06] MEDS ORDERED: IOHEXOL 350 MG/ML 100 ML (OMNIPAQUE 350) VIAL IV ONE (11:45)
[2023-01-06] MEDS ORDERED: NS 100 ML (IVPB) BAG IV ONE (11:45)
--- NOTE | 2023-01-06 12:27 | Diagnostic Imaging Report ---
INDICATION: Right-sided chest and abdominal pain. Renal artery stents. History of mass removed off the left kidney. EXAMINATION: CTA chest, abdomen and pelvis TECHNIQUE: Thin axial sections through the chest, abdomen, and pelvis was obtained following intravenous contrast bolus. Multiplanar MIP images were reconstructed and reviewed. All CT scans use one or more of the following dose optimizing techniques: automated exposure control, MA and/or KvP adjustment based on patient size and exam type or iterative reconstruction. COMPARISON: 01/12/2022. 12/22/2022. FINDINGS: CTA chest: No evidence of pulmonary emboli to the subsegmental pulmonary arteries. The thoracic aorta is normal without aneurysm or dissection. The heart size is prominent. No pericardial effusion is present. There is no mediastinal, hilar, or axillary lymphadenopathy. Stable nodule in the mid right lung measuring 1.3 cm. Smaller nodule just anterior to this is stable measuring 0.6 cm. No new suspicious pulmonary nodules are seen. Hazy opacities are seen in the dependent lungs. There are no focal areas of consolidation. No pneumothoraces are present. No central endobronchial obstructing lesions are identified. There are no pleural effusions. No acute osseous abnormalities. Bone island is seen in the T12 vertebral body. CTA ABDOMEN AND PELVIS: No evidence of aneurysm or dissection in the abdominal aorta. The celiac trunk, SMA, and WANDER are patent. Bilateral renal artery stents are seen with robust flow distal to the stents. No hydronephrosis or obstructing calculi. No solid renal mass is seen. No perinephric fat stranding. The urinary bladder is unremarkable. There is hepatomegaly with hepatic steatosis. The spleen is also prominent. No focal splenic or hepatic lesions. The portal vein is patent. The gallbladder is surgically absent. The pancreas and adrenal glands have a normal appearance. There is no pathologically enlarged mesenteric or retroperitoneal adenopathy. The bowel loops are nondilated. A moderate amount of stool is seen in the colon There is no free fluid or free air. No acute osseous abnormalities. There is no free air, loculated collection, or adenopathy in the pelvis. IMPRESSION: 1. No acute abnormalities in the chest, abdomen, or pelvis. No evidence of pulmonary emboli. No aneurysm or dissection in the thoracic or abdominal aorta. 2. Patent bilateral renal artery stents. No hydronephrosis or solid renal mass. No perinephric fat stranding. 3. Stable nodules in the mid right lung. No new suspicious nodules. Dependent atelectasis is seen bilaterally. 4. Hepatosplenomegaly with hepatic steatosis. No focal hepatic or splenic lesions. No ascites. 5. Cardiomegaly. Dictated by: Dictated on workstation # [id number]
[2023-01-06] MEDS ORDERED: cefTRIAXone PRE-MIX 50 ML IV STA (12:34)
[2023-01-06] MEDS ORDERED: PHEN-640 PO (12:54)
[2023-01-06] MEDS ORDERED: CEFD300C3 PO (12:54)
[2023-01-06 13:06] VITALS: BP 126/63
== END 2023-01-06 13:07 | disposition home or self-care (01) ==
LOC: EDUNIT# 08:47 → ER 08:48
DX: N39.0 Urinary tract infection, site not specified (principal); R07.81 Pleurodynia; Z95.828 Presence of other vascular implants and grafts; Z87.19 Personal history of other diseases of the digestive system; Z90.49 Acquired absence of other specified parts of digestive tract; Z88.1 Allergy status to other antibiotic agents; Z88.2 Allergy status to sulfonamides; Z88.0 Allergy status to penicillin
CPT/HCPCS: 36415; 71046; 71275; 74177; 80053; 81000; 85025; 85379; 86141; 87088

== ENCOUNTER 2023-02-09 13:23 | Emergency (ER) | payer MEDICARE, OTHER ==
[~2023-02-09] VITALS: Ht 167 cm; Wt 80.0 kg
[~2023-02-09 13:23] MED LIST changes: +PHEN-640 PO
--- NOTE | 2023-02-09 13:47 | ED Abdominal Pain ---
General Chief Complaint: Abdominal/GI Problems Stated Complaint: KIDNEY ISSUES | LOWER BACK PAIN Nursing Triage Note: PT AMB TO TRIAGE, PT JUST RECENTLY HAD STENTS PUT IN BILATERALLY, PT CURRENTLY HAS SEVERE R FLANK PAIN 04/15. PT STATES JUST OFF ANTIBIOTIC ONE WEEK AGO. PT SENT FROM [facility] Source of Information: Patient Exam Limitations: No Limitations History of Present Illness Date Seen by Provider: Feb 09, 2023 Time Seen by Provider: 13:35 Initial Comments Patient is a 67-year-old female who presents to the emergency department with a chief complaint of concern for right kidney issue, severe right flank pain and right upper quadrant abdominal pain since yesterday. Patient has had 3 urinary tract infections treated over the last 5 or 6 weeks. She was seen here in the beginning of January and diagnosed with renal artery stenosis. She had an 80% blockage on the right and a 50% blockage on the left. She was subsequently seen at [facility] [place]. Grier and had stents placed in her bilateral renal arteries. She has been taking her Plavix and aspirin. She is on for blood pressure medications. She states she has had some mild discomfort since the stents were placed. She has been concerned because every time she has had a urine done she has had a little blood in her urine. She went to [facility] this morning and was sent to the emergency room with this pain. She has not taken anything for the pain. No fevers or chills. No nausea. Nothing makes the pain any better, movement and palpation make the pain worse. No black or bloody stools. No dysuria. She just got off antibiotics about a week ago. Patient has some hydrocodone at home and states that 1 would take the edge off but yesterday it required 2, it was so severe. Timing/Duration: 24 Hours Severity/Quality: Severe, Sharp (and burning) Location: RUQ, Flank (Right Flank) Radiation: No Radiation Activities at Onset: None Modifying Factors: Improves With Other (hydrocodone takes the "edge off") Associated Symptoms: Shortness of Air (due to pain) Allergies and Home Medications Allergies Coded Allergies: Penicillins (Verified Allergy, Severe, Anaphylaxis, 01/06/23) May take cefdinir and rocephin clarithromycin (Verified Allergy, Unknown, 01/30/18) Patient as tolerated azithromycin gluten (Verified Allergy, Unknown, 11/10/13) metoclopramide (Unverified Allergy, Unknown, 11/03/15) piroxicam (Verified Allergy, Unknown, Pt has received Ketorolac w/o issue, 01/29/18) sulfacetamide sodium (Verified Allergy, Unknown, 11/08/13) Patient Home Medication List Home Medication List Reviewed: Yes Bisoprolol Fumarate (Bisoprolol Fumarate) 10 Mg Tablet, 10 MG PO BID, (Reported) Entered as Reported by: ZAHIDA TRIVEDI on 01/29/18 1531 Cefdinir (Cefdinir) 300 Mg Capsule, 300 MG PO BID Prescribed by: REID SAUCEDO on 01/31/21 1246 Cefdinir (Cefdinir) 300 Mg Capsule, 300 MG PO BID Prescribed by: ALAN ELMORE on 01/06/23 1254 Cholecalciferol (Vitamin D3) (Vitamin D3) 125 Mcg Capsule, 125 MCG PO HS, (Reported) Entered as Reported by: DOREEN HENRY on 01/27/21 1437 Cyanocobalamin (Cyanocobalamin Injection) 1,000 Mcg/Ml Inj, 1,000 MCG IM EVERY 2 MONTHS, (Reported) Entered as Reported by: DOREEN HENRY on 01/27/21 1437 Duloxetine HCl (Duloxetine HCl) 60 Mg Capsule.dr, 60 MG PO HS, (Reported) Entered as Reported by: ZAHIDA TRIVEDI on 01/29/18 1518 Empagliflozin/Linagliptin (Glyxambi 25 mg-5 mg Tablet) 1 Each Tablet, 1 EA PO DAILY, (Reported) Entered as Reported by: DOREEN HENRY on 01/27/21 1437 Ergocalciferol (Vitamin D2) (Vitamin D2) 1,250 Mcg Capsule, 1,250 MCG PO SAT, (Reported) Entered as Reported by: DOREEN HENRY on 01/27/21 1437 Estradiol (Estradiol Patch Twice Weekly 0.1mg/hr) 1 Each Patch.tdsw, 1 PATCH TD TWICE WEEKLY, (Reported) Entered as Reported by: DOREEN HENRY on 01/27/21 1437 Fexofenadine HCl (Reyna Allergy) 180 Mg Tablet, 180 MG PO DAILY, (Reported) Entered as Reported by: DOREEN HENRY on 01/27/21 1437 Glipizide (Glipizide) 5 Mg Tablet, 5 MG PO DAILY, (Reported) Entered as Reported by: DOREEN HENRY on 01/27/21 1437 Hydrocodone/Acetaminophen (Hydrocodone-Acetamin 5-325 mg) 1 Each Tablet, 1-2 TAB PO Q8H PRN for PAIN-MODERATE (5-7), (Reported) Entered as Reported by: DOREEN HENRY on 01/27/21 1437 Levothyroxine Sodium (Tirosint) 88 Mcg Capsule, 88 MCG PO DAILY, (Reported) Entered as Reported by: DOREEN HENRY on 01/27/21 1437 Liothyronine Sodium (Liothyronine Sodium) 5 Mcg Tablet, 5 MCG PO DAILY, (Reported) Entered as Reported by: ZAHIDA TRIVEDI on 01/29/18 1531 Metronidazole (Flagyl) 500 Mg Tablet, 500 MG PO TID Prescribed by: REID SAUCEDO on 01/31/21 1246 Pantoprazole Sodium (Pantoprazole Sodium) 40 Mg Tablet.dr, 40 MG PO HS, (Reported) Entered as Reported by: ZAHIDA TRIVEDI on 01/29/18 1518 Phenazopyridine HCl (Pyridium) 200 Mg Tablet, 1 TAB PO TID PRN for PAIN Prescribed by: ALAN ELMORE on 01/06/23 1254 Polyethylene Glycol 3350 (Miralax) 17 Gm Powd.pack, 17 GM PO BID, (Reported) Entered as Reported by: DOREEN HENRY on 01/27/21 143 Valsartan (Valsartan) 320 Mg Tablet, 320 MG PO DAILY, (Reported) Entered as Reported by: DOREEN HENRY on 01/27/21 1437 Review of Systems Review of Systems Constitutional: see HPI Respiratory: No Symptoms Reported Cardiovascular: No Symptoms Reported Gastrointestinal: Abdominal Pain Genitourinary: No Symptoms Reported Musculoskeletal: back pain (right flank) Skin: no symptoms reported Past Oughyfl-Jlruub-Rshjvr Hx Patient Social History Tobacco Use?: No Substance use?: No Alcohol Use?: No Pt feels they are or have been: No Immunizations Up To Date Tetanus Booster (TDap): Less than 5yrs PED Vaccines UTD: Yes First/Initial COVID19 Vaccinat: YES Second COVID19 Vaccination Josue: YES Third COVID19 Vaccination Date: YES Seasonal Allergies Seasonal Allergies: No Past Medical History Surgery/Hospitalization HX: T AND A , REFLUX, GB, NECK AND BACK SURG, COLON RESECTION, TUMOR REMOVED FROM L KIDNEY, RENAL ARTERY STENT BILAT, THYROID SURGERY, BISI, APPY Surgeries: Yes Appendectomy, Breast, Cardiac, Gallbladder, Hysterectomy, Oophorectomy, Orthopedic, Thyroidectomy, Tonsillectomy, Vascular Surgery Respiratory: Yes Asthma Currently Using CPAP: No Currently Using BIPAP: No Cardiac: Yes (mitral valve prolapse, heart caths no stents) Coronary Artery Disease, Heart Attack, Peripheral Vascular, Valvular Heart Disease Neurological: Yes Reproductive Disorders: Yes (TOTAL HYSTERECTOMY) Female Reproductive Disorders: Menstrual Problems, Endometriosis, Ovarian Cyst [employer] History: Hysterectomy Sexually Transmitted Disease: No HIV/AIDS: No Genitourinary: Yes (Bilateral renal artery stenosis status post bilateral stent) Kidney Infection, Kidney Stones, UTI-Chronic Gastrointestinal: Yes (CHRONIC ABDOMINAL PAIN ) Gastroesophageal Reflux, Crohns Disease, Diverticulosis, Polyps, Hiatal Hernia, Ulcer, Gall Bladder Disease, Irritable Bowel Musculoskeletal: Yes (ANKLYLOSING SPONDYLITIS) Degenerate Disk Disease, Arthritis, Chronic Back Pain Endocrine: Yes Hypothyroidsim, Lupus Loss of Vision: Denies Hearing Impairment: Denies Cancer: No Psychosocial: No Integumentary: Yes (STAPH INFECTIONS) Blood Disorders: No Adverse Reaction/Blood Tranf: No Family Medical History Family history: Cardiovascular disease Family history: Diabetes mellitus 03 MOTHER 09 BROTHER Family history: Glaucoma 03 MOTHER Family history: Thyroid disorder 03 MOTHER Heart disease 03 FATHER (AORTIC VALVE REPLACED) No Pertinent Family Hx Physical Exam Vital Signs Vital Signs - First Documented 02/09/23 13:25 Temp 36.8 Pulse 86 Resp 18 B/P (MAP) 123/70 (87) Pulse Ox 99 Capillary Refill : Less Than 3 Seconds Height/Weight/BMI Height: 5'6.00" Weight: 182lbs. 0.0oz. 82.917448bv; 28.00 BMI Method:Stated General Appearance: WD/WN, mild distress HEENT: PERRL/EOMI Neck: normal inspection Respiratory: lungs clear, normal breath sounds, no respiratory distress, no accessory muscle use Cardiovascular: regular rate, rhythm, other (2+ femoral pulse on the right) Gastrointestinal: soft, abnormal bowel sounds (hypoactive), guarding (RUQ and right flank - exquisitely tender to palpation. no overlying rashes/erythema) Extremities: normal range of motion, non-tender, normal inspection, no pedal edema, no calf tenderness Back: normal inspection, CVA tenderness (R) Neurologic/Psychiatric: alert, normal mood/affect, oriented x 3 Skin: normal color, warm/dry; No rash Progress/Results/Core Measures Results/Orders Lab Results Laboratory Tests Test 02/09/23 13:44 02/09/23 14:28 Range/Units White Blood Count 5.6 4.3-11.0 10^3/uL Red Blood Count 5.02 3.80-5.11 10^6/uL Hemoglobin 15.8 11.5-16.0 g/dL Hematocrit 45 35-52 % Mean Corpuscular Volume 90 80-99 fL Mean Corpuscular Hemoglobin 32 25-34 pg Mean Corpuscular Hemoglobin Concent 35 32-36 g/dL Red Cell Distribution Width 13.2 10.0-14.5 % Platelet Count 245 130-400 10^3/uL Mean Platelet Volume 9.4 9.0-12.2 fL Immature Granulocyte % (Auto) 1 % Neutrophils (%) (Auto) 72 42-75 % Lymphocytes (%) (Auto) 18 12-44 % Monocytes (%) (Auto) 9 0-12 % Eosinophils (%) (Auto) 0 0-10 % Basophils (%) (Auto) 0 0-10 % Neutrophils # (Auto) 4.0 1.8-7.8 10^3/uL Lymphocytes # (Auto) 1.0 1.0-4.0 10^3/uL Monocytes # (Auto) 0.5 0.0-1.0 10^3/uL Eosinophils # (Auto) 0.0 0.0-0.3 10^3/uL Basophils # (Auto) 0.0 0.0-0.1 10^3/uL Immature Granulocyte # (Auto) 0.0 0.0-0.1 10^3/uL Sodium Level 132 L 135-145 MMOL/L Potassium Level 3.2 L 3.6-5.0 MMOL/L Chloride Level 93 L 98-107 MMOL/L Carbon Dioxide Level 23 21-32 MMOL/L Anion Gap 16 H 5-14 MMOL/L Blood Urea Nitrogen 20 H 7-18 MG/DL Creatinine 1.23 0.60-1.30 MG/DL Estimat Glomerular Filtration Rate 48 BUN/Creatinine Ratio 16 Glucose Level 211 H 70-105 MG/DL Calcium Level 9.7 8.5-10.1 MG/DL Corrected Calcium 9.3 8.5-10.1 MG/DL Total Bilirubin 0.5 0.1-1.0 MG/DL Aspartate Amino Transf (AST/SGOT) 48 H 5-34 U/L Alanine Aminotransferase (ALT/SGPT) 59 H 0-55 U/L Alkaline Phosphatase 60 40-136 U/L C-Reactive Protein High Sensitivity 4.11 H 0.00-0.50 MG/DL Total Protein 8.4 H 6.4-8.2 GM/DL Albumin 4.5 3.2-4.5 GM/DL Urine Color YELLOW Urine Clarity CLEAR Urine pH 6.0 5-9 Urine Specific [place] <=1.005 1.016-1.022 Urine Protein NEGATIVE NEGATIVE Urine Glucose (UA) 3+ H NEGATIVE Urine Ketones NEGATIVE NEGATIVE Urine Nitrite NEGATIVE NEGATIVE Urine Bilirubin NEGATIVE NEGATIVE Urine Urobilinogen 0.2 < = 1.0 MG/DL Urine Leukocyte Esterase NEGATIVE NEGATIVE Urine RBC (Auto) NEGATIVE NEGATIVE Urine RBC NONE /HPF Urine WBC RARE /HPF Urine Squamous Epithelial Cells 2-5 /HPF Urine Crystals NONE /LPF Urine Bacteria TRACE /HPF Urine Casts NONE /LPF Urine Mucus SMALL H /LPF Urine Culture Indicated NO My Orders Orders - BEATRIZ ALVAREZ MD Ed Iv/Invasive Line Start (02/09/23 13:47) Cbc With Automated Diff (02/09/23 13:47) Comprehensive Metabolic Panel (02/09/23 13:47) Ua Culture If Indicated (02/09/23 13:47) Hs C Reactive Protein (02/09/23 13:47) Fentanyl Inj (Sublimaze Injection) (02/09/23 14:15) Fentanyl Inj (Sublimaze Injection) (02/09/23 14:45) Us Renal Bilateral [id number] (02/09/23 14:43) Ct Angio Abdomen W (02/09/23 15:54) Lactated Ringers (Lr 1000 Ml Iv Solution (02/09/23 15:54) Iohexol Injection (Omnipaque 350 Mg/Ml 1 (02/09/23 16:15) Ns (Ivpb) (Sodium Chloride 0.9% Ivpb Bag (02/09/23 16:15) Fentanyl Inj (Sublimaze Injection) (02/09/23 16:30) Medications Given in ED Current Medications Medications Dose Ordered Sig/Charmaine Route Start Time Stop Time Status Last Admin Dose Admin Fentanyl Citrate 50 mcg ONCE ONCE IVP 02/09/23 14:15 02/09/23 14:16 DC 02/09/23 14:22 50 MCG Fentanyl Citrate 50 mcg ONCE ONCE IVP 02/09/23 14:45 02/09/23 14:46 DC 02/09/23 14:56 50 MCG Fentanyl Citrate 50 mcg ONCE ONCE IVP 02/09/23 16:30 02/09/23 16:31 DC 02/09/23 16:47 50 MCG Iohexol 100 ml ONCE ONCE IV 02/09/23 16:15 02/09/23 16:16 DC 02/09/23 16:35 85 ML Sodium Chloride 100 ml ONCE ONCE IV 02/09/23 16:15 02/09/23 16:16 DC 02/09/23 16:35 80 ML Vital Signs/I&O 02/09/23 13:25 Temp 36.8 Pulse 86 Resp 18 B/P (MAP) 123/70 (87) Pulse Ox 99 Blood Pressure Mean: 87 Progress Progress Note #1: Time: 16:01 Progress Note Patient seen and evaluated by me. Evaluation today includes physical exam, CBC, Chem-12, urinalysis, bilateral renal ultrasound. Patient's physical exam pertinent for well-developed well-nourished moderately obese female in distress due to right flank and right upper quadrant abdominal pain. Vital signs are stable. She does voluntarily guard in the right flank. She seems to be exquisitely tender. There is CVA tenderness on the right. No overlying rashes, vesicles, erythema. She is afebrile. No lower extremity edema. Distal pulses are intact. Differential diagnosis based on history and physical exam urinary tract infe ction/pyelonephritis/kidney stone/acute occlusion of renal artery stent Labs independently reviewed and interpreted by me. Her CBC is normal. Her Chem-12 shows a sodium of 132 potassium of 3.2, chloride 93 bicarb 23 BUN of 20 creatinine of 1.23 serum glucose 211. Her LFTs are minimally elevated AST 48 ALT of 59. Total protein is up to 8.4. Her CRP is elevated at 4.11. Urinal ysis is clear of infection and blood. She does have 3+ glucose. Bilateral renal ultrasound does not show any gross abnormalities. Flow was established both kidneys but partially obscured due to bowel. There was a question of a cyst on the right kidney. Patient is reevaluated at this time and continues to have fairly significant pain despite 2 doses of 50 mcg of fentanyl. I discussed with her the need to visualize patent stent in the right renal artery as this would be the most concerning etiology for her pain. She has no evidence of pyelonephritis. She does not have hematuria consistent with kidney stone and I was able to review prior CTs which did not demonstrate any intraparenchymal stones. She is resting fairly comfortably at the moment, will start some lactated Ringer's and have ordered CT angio abdomen. Progress Note #2: Time: 17:[address] angio of the abdomen only does not reveal anything remarkable regarding the right flank. She has normal perfusion of both kidneys. The liver does look enlarged and has characteristics compatible with steatosis. No free fluid visualized. Bowel looks normal. No other concerning findings. Patient states her pain is almost completely controlled. She does have pain medications at home. Reassurance is provided. I advised her if she develops worsening pain or fever she needs to return to the emergency department. Encouraged follow-up with her primary care physician. All questions are sought and answered. Patient is improved at discharge. Diagnostic Imaging Diagonstic Imaging: Ultrasound Comments [facility] [place], [place] NAME: [facility] REC#: [id number] PT STATUS: REG ER : 1955 PHYSICIAN: BEATRIZ ALVAREZ MD ADMIT DATE: 02/09/23/ER Draft Date of Exam:02/09/23 US RENAL BILATERAL [id number] INDICATION: severe right flank pain TECHNIQUE: Multiple real-time grayscale sonographic images were obtained of the kidneys. CORRELATION: CT of 01/06/2023. FINDINGS: RIGHT KIDNEY: 11.5 x 5.8 x 6 cm. LEFT KIDNEY: 11.5 x 4.4 x 5.6 cm. There is a subtle hypoechoic area centrally in the right kidney, may be reflective of a cyst but is not suggested at recent CT imaging, therefore, could reflect potentially mildly dilated calyx. This area measures 2.2 x 2.5 cm. Left collecting system is unremarkable. Renal parenchyma of both kidneys is otherwise unremarkable. URINARY BLADDER: The partially distended bladder has an unremarkable appearance. Bilateral ureteral jets are present. IMPRESSION: 1. 2.5 cm subtle low-attenuating region centrally in the right kidney, may be artifactual, could potentially reflect a cyst but is not demonstrated on recent CT imaging, therefore may reflect a mildly prominent dilated calyx. Overt hydronephrosis however is not otherwise suggested. Dictated on workstation # [id number] Dict: 02/09/23 1524 Trans: 02/09/23 1530 [id number] Interpreted by: DARRYN MONROE DO Electronically signed by: Departure Impression Primary Impression: Right flank pain Disposition: 01 HOME, SELF-CARE Condition: Improved Departure-Patient Inst. Decision time for Depature: 17:56 Referrals: REID SAUCEDO DO (PCP/Family) Primary Care Physician Patient Instructions: Abdominal Pain, Adult ED Add. Discharge Instructions: Continue your daily prescribed medications. Use your hydrocodone as needed every 6 hours. You can take 1 additional extra strength Tylenol with the hydrocodone. You can try 1 Benadryl tablet, 25 mg at night with the hydrocodone to help with sleep. If you develop a fever, worsening pain, rash or any other emergent, concerning symptoms please return to the emergency department for reevaluation. Please follow-up with Dr. Saucedo next week. Copy Copies To 1: REID SAUCEDO KATHRYN M MD Feb 09, 2023 13:47
[2023-02-09 13:55] LABS: BASOPHILS % (AUTO) 0 % (0-10); EOSINOPHILS % (AUTO) 0 % (0-10); HEMATOCRIT 45 % (35-52); HEMOGLOBIN 15.8 g/dL (11.5-16.0); LYMPHOCYTES % (AUTO) 18 % (12-44); MEAN CORPUSCULAR HEMOGLOBIN 32 pg (25-34); MEAN CORPUSCULAR HGB CONC 35 g/dL (32-36); MEAN CORPUSCULAR VOLUME 90 fL (80-99); MEAN PLATELET VOLUME 9.4 fL (9.0-12.2); MONOCYTES # (AUTO) 0.5 10^3/uL (0.0-1.0); MONOCYTES % (AUTO) 9 % (0-12); NEUTROPHILS % (AUTO) 72 % (42-75); PLATELET COUNT 245 10^3/uL (130-400); WHITE BLOOD COUNT 5.6 10^3/uL (4.3-11.0)
[2023-02-09 14:11] LABS: ALBUMIN 4.5 GM/DL (3.2-4.5); POTASSIUM 3.2 MMOL/L (3.6-5.0)
[2023-02-09 14:12] LABS: CALCIUM 9.7 MG/DL (8.5-10.1)
[2023-02-09 14:14] LABS: TOTAL PROTEIN 8.4 GM/DL (6.4-8.2)
[2023-02-09 14:15] LABS: BILIRUBIN,TOTAL 0.5 MG/DL (0.1-1.0)
[2023-02-09] MEDS ORDERED: fentaNYL INJ 100 MCG/2 ML AMP IVP ONE ×3 (14:15→16:30)
[2023-02-09 14:17] LABS: CREATININE SERUM 1.23 MG/DL (0.60-1.30)
[2023-02-09 14:36] LABS: BILIRUBIN,URINE NEGATIVE (NEGATIVE); CLARITY,URINE CLEAR; COLOR,URINE YELLOW; GLUCOSE, URINE (UA) 3+ (NEGATIVE); KETONES,URINE NEGATIVE (NEGATIVE); LEUKOCYTE ESTERASE ,URINE NEGATIVE (NEGATIVE); NITRITE,URINE NEGATIVE (NEGATIVE); PROTEIN,URINE NEGATIVE (NEGATIVE)
[2023-02-09 14:46] LABS: BACTERIA,URINE TRACE /HPF; WBC,URINE RARE /HPF
--- NOTE | 2023-02-09 15:31 | Diagnostic Imaging Report ---
INDICATION: severe right flank pain TECHNIQUE: Multiple real-time grayscale sonographic images were obtained of the kidneys. CORRELATION: CT of 01/06/2023. FINDINGS: RIGHT KIDNEY: 11.5 x 5.8 x 6 cm. LEFT KIDNEY: 11.5 x 4.4 x 5.6 cm. There is a subtle hypoechoic area centrally in the right kidney, may be reflective of a cyst but is not suggested at recent CT imaging, therefore, could reflect potentially mildly dilated calyx. This area measures 2.2 x 2.5 cm. Left collecting system is unremarkable. Renal parenchyma of both kidneys is otherwise unremarkable. URINARY BLADDER: The partially distended bladder has an unremarkable appearance. Bilateral ureteral jets are present. IMPRESSION: 1. 2.5 cm subtle low-attenuating region centrally in the right kidney, may be artifactual, could potentially reflect a cyst but is not demonstrated on recent CT imaging, therefore may reflect a mildly prominent dilated calyx. Overt hydronephrosis however is not otherwise suggested. Dictated by: Dictated on workstation # [id number]
[2023-02-09] MEDS ORDERED: LACTATED RINGERS 1,000 ML IV STA (15:54)
[2023-02-09] MEDS ORDERED: NS 100 ML (IVPB) BAG IV ONE (16:15)
[2023-02-09] MEDS ORDERED: IOHEXOL 350 MG/ML 100 ML (OMNIPAQUE 350) VIAL IV ONE (16:15)
--- NOTE | 2023-02-09 16:46 | Diagnostic Imaging Report ---
EXAMINATION: CT angiography of the abdomen. TECHNIQUE: After intravenous administration of contrast, thin section axial CT angiography of the abdomen and were obtained. 3D MIP reformats were provided. All CT scans use one or more of the following dose optimizing techniques: Automated exposure control, MA and/or KvP adjustment based on a patient size and exam type, or iterative reconstruction. HISTORY: Severe right flank pain. COMPARISON: 01/06/2023. FINDINGS: Vascular: There is no aneurysm, dissection, or significant stenosis. Bilateral renal artery stents are present and appear patent. Lung bases: The lung bases are clear. Solid organs: There is diffuse hypoattenuation of the liver which could be seen with hepatic steatosis. The gallbladder is surgically absent. There is no biliary ductal dilation. Pancreas is normal. Spleen is normal. Adrenal glands are normal. The kidneys are normal without hydronephrosis. Bowel: No bowel obstruction. Peritoneum: There is no intraperitoneal free fluid or free air. No suspicious lymphadenopathy. Musculoskeletal: Degenerative changes of the spine without suspicious osseous lesion or compression fracture. IMPRESSION: 1. No aneurysm, dissection, or significant stenosis. 2. No acute abnormality in the visualized abdomen. Dictated by: Dictated on workstation # [id number]
[2023-02-09 18:03] VITALS: BP 127/70
== END 2023-02-09 18:03 | disposition home or self-care (01) ==
LOC: EDUNIT# 13:23 → ER 13:24
DX: R10.11 Right upper quadrant pain (principal); I70.1 Atherosclerosis of renal artery; R79.82 Elevated C-reactive protein (CRP); R74.01 Elevation of levels of liver transaminase levels; E66.9 Obesity, unspecified; Z68.28 Body mass index [BMI] 28.0-28.9, adult; Z95.828 Presence of other vascular implants and grafts; Z79.02 Long term (current) use of antithrombotics/antiplatelets; Z79.82 Long term (current) use of aspirin; Z79.899 Other long term (current) drug therapy; Z87.19 Personal history of other diseases of the digestive system; Z90.49 Acquired absence of other specified parts of digestive tract
CPT/HCPCS: 36415; 74175; 76770; 80053; 81000; 85025; 86141

== ENCOUNTER → 2023-04-18 | Outpatient (CLI) | payer MEDICARE, OTHER ==
[~2023-04-18] MED LIST changes: +DICY-11 PO
--- NOTE | 2023-04-18 09:32 | Diagnostic Imaging Report ---
INDICATION: CHRONIC KIDNEY DISEASE. RECENT BILATERAL RENAL ARTERY STENT. TECHNIQUE: Multiple real-time grayscale sonographic images, color and duplex Doppler images were obtained of the urinary system. FINDINGS: Aortic velocity: 77 cm/sec. RIGHT kidney: Size: 11.5 x 4.9 x 4.6 cm The right renal parenchyma with probable cyst mid aspect 1.7 x 1.8 x 1.4 cm. The right renal artery is visualized in its proximal, mid and distal aspect. Maximum renal artery velocity: 75cm/sec Maximum renal artery/aortic ratio: 1.0 LEFT kidney: Size: 10.5 x 5.8 x 5.4 cm The left renal parenchyma and collecting system appear unremarkable. The left renal artery is visualized in its proximal, mid and distal aspect. Maximum renal artery velocity: 114cm/sec Maximum renal artery/aortic ratio: 1.5 Bladder: Not imaged. IMPRESSION: 1. Unremarkable renal ultrasound with Doppler. Dictated by: Dictated on workstation # [id number]
== END ==
LOC: RAD 07:15
DX: N18.30 Chronic kidney disease, stage 3 unspecified (principal); Z95.828 Presence of other vascular implants and grafts
CPT/HCPCS: 76770; 93975